=== PATIENT | male | born 1965 | race African-American/Black ===

== ENCOUNTER 2017-06-25 08:35 | Inpatient (IN) | payer OTHER ==
[2017-06-25] VITALS (31 sets, daily range): BP systolic 140–223; BP diastolic 73–129
[~2017-06-25] VITALS: Ht 182.9 cm; Wt 79.8 kg
[2017-06-25] MEDS ORDERED: IV NORMAL SALINE 1000ML BAG 1,000 ML IV ONE (08:45)
--- NOTE | 2017-06-25 08:46 | EKG ---
[facility] [address] [place] [address] Test Date: 2017-06-25 Test Time: 08:41:33 Pat Name: GEORGES VILLEDA Department: Room: Gender: Male System Consultant: : 1965 Requested By: SHYANNE SALAMANCA Order Number: [id number] Reading MD: Carole Martell Measurements Intervals [place] Rate: 136 P: -114 [place]: 88 QRS: 46 QRSD: 92 T: 69 QT: 316 QTc: 479 Interpretive Statements SUPRAVENTRICULAR TACHYCARDIA ST & T ABNORMALITY, CONSIDER ANTEROLATERAL ISCHEMIA ABNORMAL ECG Electronically Signed On 06-29-2017 15:10:17 CDT by Carole Martell
[2017-06-25] MEDS ORDERED: NITROGLYCERIN PREMIX 250 ML IV ONE ×2 (08:54→09:30)
--- NOTE | 2017-06-25 09:00 | PHYS DOC ---
Past Medical History Past Medical History: CAD, Hypertension Adult General Chief Complaint Chief Complaint: CHEST PAIN HPI HPI Patient is a 51 year old male who presents with pressure-like chest pain that started within the last hour without radiation. + SOB, reports heroin use 2-3 days ago. Bypass surgery at in November of this year. HTN and last took his meds yesterday morning. Review of Systems Review of Systems Constitutional: Denies fever or chills [] Eyes: Denies change in visual acuity, redness, or eye pain [] HENT: Denies nasal congestion or sore throat [] Respiratory: Denies cough Cardiovascular: No additional information not addressed in HPI [] GI: Denies abdominal pain, nausea, vomiting, bloody stools or diarrhea [] : Denies dysuria or hematuria [] Musculoskeletal: Denies back pain or joint pain [] Integument: Denies rash or skin lesions [] Neurologic: Denies headache, focal weakness or sensory changes [] Current Medications Current Medications Current Medications Medications (Trade) Dose Ordered Sig/[facility] Start Time Stop Time Status Last Admin Dose Admin Aspirin (Berny Aspirin) 325 mg 1X ONCE 06/25/17 09:45 06/25/17 09:46 DC 06/25/17 09:40 325 MG Furosemide (Lasix) 40 mg 1X ONCE 06/25/17 09:30 06/25/17 09:31 DC 06/25/17 09:35 40 MG Labetalol HCl (Normodyne) 20 mg 1X ONCE 06/25/17 09:30 06/25/17 09:31 DC 06/25/17 09:36 20 MG Nitroglycerin/ Dextrose 250 ml @ 0 mls/hr 1X ONCE 06/25/17 09:30 06/25/17 09:31 DC 06/25/17 09:04 1.5 MLS/HR Sodium Chloride 1,000 ml @ 1,000 mls/hr 1X ONCE 06/25/17 08:45 06/25/17 09:44 DC 06/25/17 08:56 1,000 MLS/HR Allergies Allergies Allergies Coded Allergies Type Severity Reaction Last Updated Verified No Known Drug Allergies 06/25/17 No Physical Exam Physical Exam Constitutional: Well developed, well nourished, appears uncomfortable HENT: Normocephalic, atraumatic, bilateral external ears normal, oropharynx moist, no oral exudates, nose normal. [] Eyes: PERRLA, EOMI, conjunctiva normal, no discharge. [] Neck: Normal range of motion, no tenderness, supple, no stridor. [] Cardiovascular:Heart rate tachy with regular rhythm, no murmur [] Lungs & Thorax: Bilateral breath sounds clear to auscultation [] Abdomen: Bowel sounds normal, soft, no tenderness, no masses, no pulsatile masses. [] Skin: Warm, dry, no erythema, no rash. [] Back: No tenderness, no CVA tenderness. [] Extremities: No tenderness, no cyanosis, no clubbing, ROM intact, no edema, no track vega or erythema Neurologic: Alert and oriented X 3, normal motor function, normal sensory function, no focal deficits noted. [] Current Patient Data Vital Signs Vital Signs Date Time Temp Pulse Resp B/P (MAP) Pulse Ox O2 Delivery O2 Flow Rate FiO2 06/25/17 09:36 116 242/135 06/25/17 08:40 99.7 26 97 Room Air 99.7 Lab Values Laboratory Tests Test 06/25/17 08:44 06/25/17 08:50 06/25/17 09:02 06/25/17 09:34 White Blood Count 7.6 x10^3/uL (4.0-11.0) Red Blood Count 4.08 x10^6/uL (4.30-5.70) L Hemoglobin 10.7 g/dL (13.0-17.5) L Hematocrit 33.5 % (39.0-53.0) L Mean Corpuscular Volume 82 fL (79-100) Mean Corpuscular Hemoglobin 26 pg (25-35) Mean Corpuscular Hemoglobin Concent 32 g/dL (31-37) Red Cell Distribution Width 18.9 % (11.5-14.5) H Platelet Count 233 x10^3/uL (140-400) Neutrophils (%) (Auto) 75 % (31-73) H Lymphocytes (%) (Auto) 11 % (24-48) L Monocytes (%) (Auto) 8 % (0-9) Eosinophils (%) (Auto) 6 % (0-3) H Basophils (%) (Auto) 1 % (0-3) Neutrophils # (Auto) 5.7 x10^3uL (1.8-7.7) Lymphocytes # (Auto) 0.9 x10^3/uL (1.0-4.8) L Monocytes # (Auto) 0.6 x10^3/uL (0.0-1.1) Eosinophils # (Auto) 0.4 x10^3/uL (0.0-0.7) Basophils # (Auto) 0.0 x10^3/uL (0.0-0.2) Prothrombin Time 12.9 SEC (11.7-14.0) Prothrombin Time INR 1.0 (0.8-1.1) Sodium Level 144 mmol/L (136-145) Potassium Level 3.9 mmol/L (3.5-5.1) Chloride Level 108 mmol/L (98-107) H Carbon Dioxide Level 25 mmol/L (21-32) Anion Gap 11 (6-14) 17 mmol/L (6-14) H Blood Urea Nitrogen 24 mg/dL (8-26) Creatinine 2.8 mg/dL (0.7-1.3) H Estimated GFR (Cockcroft-Gault) 23.8 BUN/Creatinine Ratio 9 (6-20) Glucose Level 135 mg/dL (70-99) H 133 mg/dL (70-99) H Lactic Acid Level 1.9 mmol/L (0.4-2.0) Calcium Level 8.7 mg/dL (8.5-10.1) Magnesium Level 1.9 mg/dL (1.8-2.4) Total Bilirubin 0.3 mg/dL (0.2-1.0) Aspartate Amino Transferase (AST) 46 U/L (15-37) H Alanine Aminotransferase (ALT) 39 U/L (16-63) Alkaline Phosphatase 81 U/L (46-116) Troponin I Quantitative 0.024 ng/mL (0.000-0.055) Total Protein 7.3 g/dL (6.4-8.2) Albumin 2.5 g/dL (3.4-5.0) L Albumin/Globulin Ratio 0.5 (1.0-1.7) L Triglycerides Level 121 mg/dL (0-150) Cholesterol Level 214 mg/dL (0-200) H LDL Cholesterol, Calculated 129 mg/dL (0-100) H VLDL Cholesterol, Calculated 24 mg/dL (0-40) Non-HDL Cholesterol Calculated 153 mg/dL (0-129) H HDL Cholesterol 61 mg/dL (40-60) H Cholesterol/HDL Ratio 3.5 POC Hemoglobin 11.2 g/dL (14-18) L POC Hematocrit 33 % (37-52) L POC Sodium 145 mmol/L (135-145) POC Potassium 3.8 mmol/L (3.5-5.0) POC Chloride 110 mmol/L (98-110) POC Total CO2 24 mmol/L (23-32) POC Blood Urea Nitrogen 24 mg/dL (8-26) POC Creatinine 2.8 mg/dL (0.5-1.4) H POC Ionized Calcium (Lima) 1.17 mmol/L (1.13-1.32) POC Troponin I 0.03 ng/ml (<0.08) Urine Opiates Screen Pos (NEG) Urine Methadone Screen Neg (NEG) Urine Barbiturates Neg (NEG) Urine Phencyclidine Screen Neg (NEG) Urine Amphetamine/Methamphetamine Neg (NEG) Urine Benzodiazepines Screen Neg (NEG) Urine Cocaine Screen Neg (NEG) Urine Cannabinoids Screen Neg (NEG) Urine Ethyl Alcohol Neg (NEG) Laboratory Tests 06/25/17 08:44 Laboratory Tests 06/25/17 08:44 06/25/17 08:50 EKG EKG Initial EKG at 841 shows 136 bpm, sinus with normal axis, QTC of 479, there is some ST elevation noted in V2 and V3 but does not meet the 1 mm elevation, there is biphasic T waves in V5 and V6 with some ST depression in same leads as well as V4, signs of left ventricular strain, interpreted by me, no prior available for comparison[] Radiology/Procedures Radiology/Procedures chest x-ray: IMPRESSION: Probable mild pulmonary vascular congestion. Bilateral pleural effusions left greater than right. Volume loss at the left lung base likely reflects atelectasis. Follow-up imaging after appropriate treatment advised. Course & Med Decision Making Course & Med Decision Making Pertinent Labs and Imaging studies reviewed. (See chart for details) pt given asa and nitroglycerin drip initiated. Pt with tachy, chest pain, abnormal EKG and recent IV drug use. Pt could be septic, ACS, dissection, endocarditis. Repeat EKG still does not meet STEMI criteria but I contacted cardiology for evaluation. They requested echo, performed in ED. No wall motion abnormalities. Pt camed down with nitro drip to 193/105. Cr elevated , baseline unknown. Contacted Dr. Cavazos for admission. Total critical care time 35 minutes Dragcedric Disclaimer Dragon Disclaimer This electronic medical record was generated, in whole or in part, using a voice recognition dictation system. Departure Departure Impression: Primary Impression: Malignant hypertension Additional Impression: Unstable angina Disposition: 09 ADMITTED INPATIENT Admitting Physician: Supriya Cavazos Condition: GUARDED Problem Qualifiers SHYANNE SALAMANCA MD Jun 25, 2017 09:00
--- NOTE | 2017-06-25 09:03 | RAD ---
Indication chest pain. A single view of the chest was obtained. No prior imaging of the chest is available. Postoperative changes are noted. Heart size is at the upper limits of normal. There is likely mild pulmonary vascular congestion. There are are bilateral pleural effusions left probably greater than right. There is some associated volume loss at the left lung base which likely reflects atelectasis. Pneumonia is not entirely excluded. A moderately large bleb or bulla is noted in the right upper lobe. IMPRESSION: Probable mild pulmonary vascular congestion. Bilateral pleural effusions left greater than right. Volume loss at the left lung base likely reflects atelectasis. Follow-up imaging after appropriate treatment advised.
[2017-06-25 09:04] LABS: CALCIUM 8.7 mg/dL (8.5-10.1); CREATININE 2.8 mg/dL (0.7-1.3); GFR 23.8; POTASSIUM 3.9 mmol/L (3.5-5.1)
[2017-06-25 09:05] LABS: POTASSIUM ISTAT 3.8 mmol/L (3.5-5.0)
[2017-06-25 09:07] LABS: BASO % 1 % (0-3); EOS % 6 % (0-3); HEMATOCRIT 33.5 % (39.0-53.0); HEMOGLOBIN 10.7 g/dL (13.0-17.5); LYMPH # 0.9 x10^3/uL (1.0-4.8); LYMPH % 11 % (24-48); MEAN CORPUSCULAR HEMOGLOBIN 26 pg (25-35); MEAN CORPUSCULAR HGB CONC 32 g/dL (31-37); MEAN CORPUSCULAR VOLUME 82 fL (79-100); MONO % 8 % (0-9); NEUT % 75 % (31-73); PLATELET COUNT 233 x10^3/uL (140-400); RED BLOOD COUNT 4.08 x10^6/uL (4.30-5.70); RED CELL DISTRIBUTION WIDTH 18.9 % (11.5-14.5); WHITE BLOOD COUNT 7.6 x10^3/uL (4.0-11.0)
[2017-06-25 09:10] LABS: ALBUMIN 2.5 g/dL (3.4-5.0); ALBUMIN/GLOBULIN RATIO 0.5 (1.0-1.7); MAGNESIUM 1.9 mg/dL (1.8-2.4); TOTAL BILIRUBIN 0.3 mg/dL (0.2-1.0); TOTAL PROTEIN 7.3 g/dL (6.4-8.2)
[2017-06-25 09:22] LABS: PROTHROMBIN TIME PATIENT 12.9 SEC (11.7-14.0)
[2017-06-25] MEDS ORDERED: LABETALOL 20 MG/4 ML DISP.SYRIN. IVP ONE (09:30)
[2017-06-25] MEDS ORDERED: FUROSEMIDE 40 MG/4 ML VIAL. IVP ONE (09:30)
--- NOTE | 2017-06-25 09:40 | PDOC2 ---
CARDIAC CONSULT DATE OF CONSULT Date of Consult DATE: 06/25/17 TIME: 09:20 REASON FOR CONSULT Reason for Consult: Chest pain REFERRING PHYSICIAN Referring Physician: Roxana SOURCE Source: Chart review, Patient HISTORY OF PRESENT ILLNESS HISTORY OF PRESENT ILLNESS This is a 51 yo male admitted for complains of SOA. He was going to drop off his friend but he felt SOA. His legs have been more swollen than usual. He also felt wheezy and was feeling mid chest pressure without radiation. No nausea, diaphoresis. 3 weeks ago he was at [facility] noted with hypoglycemia and uncontrolled HTN. He actually passed out accdg to him at home prior to that hospitalization. 11/2016 he was at [place], [place] and lifeflighted to [place], [place] for CABG. He ihas DM2, HTN, CKD, but he has been skipping his medications. Positve for marijuana and heroin use from 2-3 days ago and continues to smoke tobacco. He also is noncompliant with his diet. Presently not having any CP but his BP is elevated. PAST MEDICAL HISTORY Cardiovascular: CAD, HTN, Syncope (?), Hyperlipidemia Pulmonary: No pertinent hx GI: GERD Heme/Onc: Anemia NOS Hepatobiliary: No pertinent hx Psych: No pertinent hx Musculoskeletal: Osteoarthritis Rheumatologic: No pertinent hx Infectious disease: No pertinent hx ENT: No pertinent hx Renal/: Chronic renal insuff Endocrine: Diabetes (2) Dermatology: No pertinent hx PAST SURGICAL HISTORY Past Surgical History: CABG (x3) FAMILY HISTORY Family History: Coronary Artery Disease (father) SOCIAL HISTORY Smoke: <1 pack per day (>5 yrs) ALCOHOL: none Drugs: Marijuana Lives: Alone CURRENT MEDICATIONS CURRENT MEDICATIONS Current Medications Medications (Trade) Dose Ordered Sig/Regino Route PRN Reason Start Time Stop Time Status Last Admin Dose Admin Sodium Chloride 1,000 ml @ 1,000 mls/hr 1X ONCE IV 06/25/17 08:45 06/25/17 09:44 06/25/17 08:56 Nitroglycerin/ Dextrose 250 ml @ 0 mls/hr 1X ONCE IV 06/25/17 09:30 06/25/17 09:31 06/25/17 09:04 ALLERGIES ALLERGIES: Coded Allergies: No Known Drug Allergies (Unverified , 06/25/17) ROS Review of System 14 point ROS evaluated with pertinent positives noted per HPI PHYSICAL EXAM General: Alert, Oriented X3, Cooperative, mild distress HEENT: Atraumatic, Mucous membr. moist/pink Lungs: Other (basilar crackles) Heart: Regular rate (SR), Normal S1, Normal S2, Other (S4, distant heart sounds ) Abdomen: Soft, No tenderness Extremities: No cyanosis, Other (3-4+ bilateral LE pitting edema) Neuro: Normal speech, Sensation intact Psych/Mental Status: Mental status NL, Mood NL MUSCULOSKELETAL: Osteoarthritic changes both hands VITALS VITALS Vital Signs Date Time Temp Pulse Resp B/P (MAP) Pulse Ox O2 Delivery O2 Flow Rate FiO2 06/25/17 08:40 99.7 123 26 233/141 (171) 97 Room Air 99.7 LABS Lab: Laboratory Tests Test 06/25/17 08:44 06/25/17 08:50 06/25/17 09:02 White Blood Count 7.6 x10^3/uL (4.0-11.0) Red Blood Count 4.08 x10^6/uL (4.30-5.70) Hemoglobin 10.7 g/dL (13.0-17.5) Hematocrit 33.5 % (39.0-53.0) Mean Corpuscular Volume 82 fL (79-100) Mean Corpuscular Hemoglobin 26 pg (25-35) Mean Corpuscular Hemoglobin Concent 32 g/dL (31-37) Red Cell Distribution Width 18.9 % (11.5-14.5) Platelet Count 233 x10^3/uL (140-400) Neutrophils (%) (Auto) 75 % (31-73) Lymphocytes (%) (Auto) 11 % (24-48) Monocytes (%) (Auto) 8 % (0-9) Eosinophils (%) (Auto) 6 % (0-3) Basophils (%) (Auto) 1 % (0-3) Neutrophils # (Auto) 5.7 x10^3uL (1.8-7.7) Lymphocytes # (Auto) 0.9 x10^3/uL (1.0-4.8) Monocytes # (Auto) 0.6 x10^3/uL (0.0-1.1) Eosinophils # (Auto) 0.4 x10^3/uL (0.0-0.7) Basophils # (Auto) 0.0 x10^3/uL (0.0-0.2) Sodium Level 144 mmol/L (136-145) Potassium Level 3.9 mmol/L (3.5-5.1) Chloride Level 108 mmol/L (98-107) Carbon Dioxide Level 25 mmol/L (21-32) Anion Gap 11 (6-14) 17 mmol/L (6-14) Blood Urea Nitrogen 24 mg/dL (8-26) Creatinine 2.8 mg/dL (0.7-1.3) Estimated GFR (Cockcroft-Gault) 23.8 BUN/Creatinine Ratio 9 (6-20) Glucose Level 135 mg/dL (70-99) 133 mg/dL (70-99) Lactic Acid Level 1.9 mmol/L (0.4-2.0) Calcium Level 8.7 mg/dL (8.5-10.1) Magnesium Level 1.9 mg/dL (1.8-2.4) Total Bilirubin 0.3 mg/dL (0.2-1.0) Aspartate Amino Transf (AST/SGOT) 46 U/L (15-37) Alanine Aminotransferase (ALT/SGPT) 39 U/L (16-63) Alkaline Phosphatase 81 U/L (46-116) Troponin I Quantitative 0.024 ng/mL (0.000-0.055) Total Protein 7.3 g/dL (6.4-8.2) Albumin 2.5 g/dL (3.4-5.0) Albumin/Globulin Ratio 0.5 (1.0-1.7) Bedside Hemoglobin 11.2 g/dL (14-18) Bedside Hematocrit 33 % (37-52) Bedside Sodium 145 mmol/L (135-145) Bedside Potassium 3.8 mmol/L (3.5-5.0) Bedside Chloride 110 mmol/L (98-110) Bedside Total CO2 24 mmol/L (23-32) Bedside Blood Urea Nitrogen 24 mg/dL (8-26) Bedside Creatinine 2.8 mg/dL (0.5-1.4) Bedside Ionized Calcium (Lima) 1.17 mmol/L (1.13-1.32) Bedside Troponin I 0.03 ng/ml (<0.08) ASSESSMENT/PLAN ASSESSMENT/PLAN 1. Malignant HTN 2. Noncompliance: skipping meds, has not followed up with cardiology. 3. Acute on chronic CHF with possible diastolic dysfunction: due to above 4. ANTONIA on CKD: suspect 3-4 5. CAD: recent CABG x3 on 11/2016 6. DM2/HLP 7. Substance abuse: marijuana and heroin 8. Recent syncopal spell: 3 wks ago at [facility] noted with hypoglycemia and uncontrolled HTN per pt. Recommendations 1. NTG started on ED. Will transition to his home meds when obtained. Labetolol x1 and lasix IV 2. Stop IVF, consult nephrology 3. Discussed adherence to regimen and abstinence. 4. TTE and obtain records. Problems: KAROLINE REILLY SCALLOP RAKER Jun 25, 2017 09:40
[2017-06-25 09:44] LABS: BILIRUBIN,URINE NEGATIVE (NEG); GLUCOSE,URINE NEGATIVE (NEG); NITRITE,URINE NEGATIVE (NEG); PROTEIN,URINE >=300 mg/dL (NEG-TRACE); UROBILINOGEN,URINE 0.2 mg/dL (0.2 mg/dL)
[2017-06-25] MEDS ORDERED: ASPIRIN 325 MG TABLET PO ONE (09:45)
[2017-06-25 09:48] LABS: BARBITURATES NEG (NEG); BENZODIAZEPINES NEG (NEG); CANNABINOIDS NEG (NEG); COCAINE NEG (NEG); METHADONE NEG (NEG); OPIATES POS (NEG); PHENCYCLIDINE NEG (NEG)
[2017-06-25 09:54] LABS: CHOLESTEROL/HDL RATIO 3.5
--- NOTE | 2017-06-25 10:18 | EKG ---
[facility] [address] [place] [address] Test Date: 2017-06-25 Test Time: 08:55:15 Pat Name: GEORGES VILLEDA Department: Room: Gender: M Equipment Services Associate: : 1965 Requested By: SHYANNE SALAMANCA Order Number: [id number] Reading MD: Carole Martell Measurements Intervals [place] Rate: 114 P: -4 [place]: 132 QRS: 40 QRSD: 94 T: 57 QT: 328 QTc: 456 Interpretive Statements SINUS TACHYCARDIA ST & T ABNORMALITY, CONSIDER ANTEROLATERAL ISCHEMIA Electronically Signed On 06-29-2017 15:11:11 CDT by Carole Martell
[2017-06-25 10:24] LABS: BACTERIA,URINE 0 /HPF (0-FEW); SQUAMOUS EPITHELIAL CELL,UR OCC /LPF; WBC,URINE 0 /HPF (0-4)
[2017-06-25] MEDS: METOPROLOL TART IMMED RELEASE 25 MG TABLET. PO SCH ×2 (12:36→20:51)
[2017-06-25] MEDS: FUROSEMIDE 40 MG/4 ML VIAL. IVP SCH ×2 (12:36→16:06)
[2017-06-25] MEDS ORDERED: INFLUENZA VAX SCREEN BY RX. MC ONE (13:30)
[2017-06-25] MEDS ORDERED: GABA800T2 PO (14:06)
[2017-06-25] MEDS ORDERED: CARV25TA2 PO (14:06)
[2017-06-25] MEDS ORDERED: METF100010 PO (14:06)
[2017-06-25] MEDS ORDERED: HYDR-2868 PO (14:06)
[2017-06-25] MEDS ORDERED: AMLO10TA2 PO (14:06)
[2017-06-25] MEDS ORDERED: CLON0.1T PO (14:06)
[2017-06-25] MEDS ORDERED: GLIM4TAB2 PO (14:06)
[2017-06-25] MEDS ORDERED: ATORVASTATIN CA80 MG PO (14:06)
--- NOTE | 2017-06-25 15:12 | CARD ---
APPROVED REPORT EXAM: Two-dimensional and M-mode echocardiogram with Doppler and color Doppler. Other Information Quality : Average Rhythm : NSR INDICATION Hypertension/HCVD IV drug use 2D DIMENSIONS RVDd2.5 (2.9-3.5cm)Left Atrium(2D)4.4 (1.6-4.0cm) IVSd1.2 (0.7-1.1cm)Aortic Root(2D)3.3 (2.0-3.7cm) LVDd4.9 (3.9-5.9cm)LVOT Diameter2.1 (1.8-2.4cm) PWd1.2 (0.7-1.1cm)LVDs3.8 (2.5-4.0cm) FS (%) 23.5 %SV49.2 ml Aortic Valve AoV Peak Himanshu.118.4cm/sAoV VTI19.3cm AO Peak GR.5.6mmHgLVOT VTI 15.01cm AO Mean GR.3mmHg Mitral Valve MV E Mfklrpto31.9cm/sMV E Peak Gr.4mmHg MV DECEL [id number] A Otheiyjz40.9cm/s MV DGQ98waM/A Ratio1.0 MV A [id number] (PHT)3.93cm2 TDI Lateral E' P. V11.74cm/sMedial E' P. V6.41cm/s E/Lateral E'8.3E/Medial E'15.1 Tricuspid Valve TR P. Fbxglppp815ow/sRAP [id number] TR Peak Gr.68geRnKTNX90zcPp LEFT VENTRICLE The left ventricle is normal size. There is borderline concentric left ventricular hypertrophy. Left ventricle systolic function is normal. The Ejection Fraction is 50-55%. There is normal LV segmental wall motion. The left ventricular diastolic function and filling is normal for age. RIGHT VENTRICLE The right ventricle is normal size. The right ventricular systolic function is normal. ATRIA The left atrium is borderline dilated. The right atrium size is normal. The interatrial septum is int act with no evidence for an atrial septal defect or patent foramen ovale as noted on 2-D or Doppler i maging. AORTIC VALVE The aortic valve is not well visualized. Doppler and Color Flow revealed no significant aortic regurg itation. There is no significant aortic valvular stenosis. MITRAL VALVE The mitral valve is normal in structure. There is no mitral valve stenosis. Doppler and Color Flow re vealed mild mitral regurgitation. TRICUSPID VALVE The tricuspid valve is normal in structure and function. Doppler and Color Flow revealed trace to mil d tricuspid regurgitation. The PA pressure was estimated at 35 mmHg. There is no tricuspid valve sten osis. PULMONIC VALVE The pulmonic valve is not well visualized. Doppler and Color Flow revealed no pulmonic valvular regur gitation. There is no pulmonic valvular stenosis. GREAT VESSELS The aortic root is normal in size. Pulmonary veins not recorded. The IVC is dilated and collapses >50 % with inspiration. PERICARDIAL EFFUSION There is large bilateral pleural effusions. There is no evidence of significant pericardial effusion. Critical Notification Other Discipline : Gauri Odell APRN at bedside Critical Value: No <Conclusion> Left ventricle systolic function is normal. The Ejection Fraction is 50-55%. There is normal LV segmental wall motion. The left atrium is borderline dilated. Mild mitral regurgitation. Trace to mild tricuspid regurgitation. The PA pressure was estimated at 35 mmHg. There is no evidence of significant pericardial effusion.
--- NOTE | 2017-06-25 15:32 | PDOC1 ---
History and Physical Date of Admission Date of Admission DATE: 06/25/17 TIME: 15:26 Identification/Chief Complaint Chief Complaint chest pain Problems: Source Source: Chart review, Patient History of Present Illness History of Present Illness MR. Barcenas, is a 51 year old male, admit to ICU with chest pain. He came to the ER with acute pressure-like chest pain for a few hours. He had new dyspena and distress, and had some anxiety. Prior heart attack a few months ago, he reports recent CABG at in November of this year. marked HTN, mult agents, reported not taking meds for one day feels better after nitro gtt, breathing easier, Past Medical History Cardiovascular: CAD, HTN, Syncope (?), Hyperlipidemia Pulmonary: No pertinent hx GI: GERD Heme/Onc: Anemia NOS Hepatobiliary: No pertinent hx Psych: No pertinent hx Musculoskeletal: Osteoarthritis Rheumatologic: No pertinent hx Infectious disease: No pertinent hx ENT: No pertinent hx Renal/: Chronic renal insuff Endocrine: Diabetes (2) Dermatology: No pertinent hx Past Surgical History Past Surgical History: CABG (x3) Family History Family History: Coronary Artery Disease (father) Social History Smoke: <1 pack per day (>5 yrs) ALCOHOL: none Drugs: Marijuana, Heroin, Other Current Problem List Problem List Problems Medical Problems: (1) Malignant hypertension Status: Acute (2) Unstable angina Status: Acute Problems: Current Medications Current Medications Current Medications Sodium Chloride 1,000 ml @ 1,000 mls/hr 1X ONCE IV Last administered on 06/25 08:56; Start 06/25/17 at 08:45; Stop 06/25/17 at 09:44; Status DC Nitroglycerin/ Dextrose 250 ml @ As Directed STK-MED ONCE IV ; Start 06/25/17 at 08:54; Stop 06/25/17 at 08:55; Status DC Nitroglycerin/ Dextrose 250 ml @ 0 mls/hr 1X ONCE IV Last administered on 09:04; Start 06/25/17 at 09:30; Stop 06/25/17 at 09:31; Status DC Furosemide (Lasix) 40 mg 1X ONCE IVP Last administered on 06/25/17 09:35; Start 06/25/17 at 09:30; Stop 06/25/17 at 09:31; Status DC Labetalol HCl (Normodyne) 20 mg 1X ONCE IVP Last administered on 06/25/17 09 :36; Start 06/25/17 at 09:30; Stop 06/25/17 at 09:31; Status DC Aspirin (Berny Aspirin) 325 mg 1X ONCE PO Last administered on 06/25/17 09: 40; Start 06/25/17 at 09:45; Stop 06/25/17 at 09:46; Status DC Metoprolol Tartrate (Lopressor) 25 mg BID PO Last administered on 06/25/17 12 :36; Start 06/25/17 at 11:00 Furosemide (Lasix) 40 mg [id number] IVP Last administered on 06/25/17 12:36; Start 06/25/17 at 11:00 Labetalol HCl (Normodyne) 20 mg PRN Q2HRS PRN IVP ELEVATED BP, SEE COMMENTS; Start 06/25/17 at 10:45 Aspirin (Ecotrin) 81 mg [id number] PO ; Start 06/26/17 at 08:00 Atorvastatin Calcium (Lipitor) 40 mg QHS PO ; Start 06/25/17 at 21:00 Amlodipine Besylate (Norvasc) 10 mg DAILY PO ; Start 06/25/17 at 12:30 Nicardipine HCl 50 mg/Sodium Chloride 270 ml @ 0 mls/hr CONT PRN IV SEE I/O RECORD Last administered on 06/25/17 12:44; Start 06/25/17 at 12:30 Info (Do NOT chart on this placeholder) 1 each 1X ONCE MC ; Start 06/25/17 at 13:30; Stop 06/25/17 at 13:31; Status UNV Influenza Virus Vaccine Quadrival (Fluarix Quad [id number] Syringe) 0.5 ml ONCE ONCE VAX IM ; Start 06/26/17 at 09:00; Stop 06/26/17 at 09:01 Active Scripts Active Reported Metformin Hcl Er (Metformin Hcl) 1,000 Mg Tab.er.24 1,000 Mg PO [id number] Hydralazine Hcl 25 Mg Tablet 1 Tab PO TID Clonidine Hcl 0.1 Mg Tablet 1 Tab PO BID Carvedilol 25 Mg Tablet 2 Tab PO BID Atorvastatin Calcium 80 Mg Tablet 1 Tab PO DAILY Amlodipine Besylate 10 Mg Tablet 10 Mg PO DAILY Gabapentin 800 Mg Tablet 800 Mg PO TID Glimepiride 4 Mg Tablet 1 Tab PO BID Allergies Allergies: Coded Allergies: No Known Drug Allergies (Unverified , 06/25/17) ROS General: YES: Fatigue, No: Chills, Night Sweats, Malaise, Appetite, Other PSYCHOLOGICAL ROS: YES: Anxiety, No: Behavioral Disorder, Concentration difficultie, Decreased libido, Depression, Disorientation, Hallucinations, Hostility, Irritablity, Memory difficulties, Mood Swings, Obsessive thoughts, Physical abuse, Sexual abuse, Sleep disturbances, Suicidal ideation, Other Eyes: No Blurry vision, No Decreased vision, No Double vision, No Dry eyes, No Excessive tearing, No Eye Pain, No Itchy Eyes, No Loss of vision, No Photophobia , No Scotomata, No Uses contacts, No Uses glasses, No Other HEENT: YES: Heacaches, No: Visual Changes, Hearing change, Nasal congestion, Nasal discharge, Oral lesions, Sinus pain, Sore Throat, Epistaxis, Sneezing, Snoring, Tinnitus, Vertigo, Vocal changes, Other Respiratory: YES: Shortness of breath, SOB with excertion, No: Cough, Hemoptysis, Orthopnea, Pleuritic Pain, Sputum Changes, Stridor, Tachypnea, Wheezing, Other Cardiovascular: yes Chest Pain, No Palpitations, No Orthopnea, No Paroxysmal Noc. Dyspnea, No Edema, No Lt Headedness, No Other Gastrointestinal: No Nausea, No Vomiting, No Abdominal Pain, No Diarrhea, No Constipation, No Melena, No Hematochezia, No Other Genitourinary: No Dysuria, No Frequency, No Incontinence, No Hematuria, No Retention, No Discharge, No Urgency, No Pain, No Flank Pain, No Other, No , No , No , No , No , No , No Musculoskeletal: No Gait Disturbance, No Joint Pain, No Joint Stiffness, No Joint Swelling, No Muscle Pain, No Muscular Weakness, No Pain In:, No Swelling In:, No Other Neurological: No Behavorial Changes, No Bowel/Bladder ControlChng, No Confusion , No Dizziness, No Gait Disturbance, No Headaches, No Impaired Coord/balance, No Memory Loss, No Numbness/Tingling, No Seizures, No Speech Problems, No Tremors, No Visual Changes, No Weakness, No Other Skin: No Dry Skin, No Eczema, No Hair Changes, No Lumps, No Mole Changes, No Mottling, No Nail Changes, No Pruritus, No Rash, No Skin Lesion Changes, No Other, No Acne Physical Exam General: Alert, Oriented X3, Cooperative, mild distress HEENT: Atraumatic Lungs: Clear to auscultation, Normal air movement Heart: no gallops, no murmurs Abdomen: Normal bowel sounds, Soft Rectal Exam: not examined Extremities: No clubbing, No edema, Normal pulses Skin: No rashes, No significant lesion Neuro: Normal tone, Sensation intact Psych/Mental Status: Mental status NL, Mood NL Vitals Vitals Vital Signs Date Time Temp Pulse Resp B/P (MAP) Pulse Ox O2 Delivery O2 Flow Rate FiO2 06/25/17 12:36 109 223/124 06/25/17 11:45 20 95 Room Air 06/25/17 08:40 99.7 99.7 Labs Labs Laboratory Tests Test 06/25/17 08:44 06/25/17 08:50 06/25/17 09:02 06/25/17 09:34 White Blood Count 7.6 x10^3/uL (4.0-11.0) Red Blood Count 4.08 x10^6/uL (4.30-5.70) Hemoglobin 10.7 g/dL (13.0-17.5) Hematocrit 33.5 % (39.0-53.0) Mean Corpuscular Volume 82 fL (79-100) Mean Corpuscular Hemoglobin 26 pg (25-35) Mean Corpuscular Hemoglobin Concent 32 g/dL (31-37) Red Cell Distribution Width 18.9 % (11.5-14.5) Platelet Count 233 x10^3/uL (140-400) Neutrophils (%) (Auto) 75 % (31-73) Lymphocytes (%) (Auto) 11 % (24-48) Monocytes (%) (Auto) 8 % (0-9) Eosinophils (%) (Auto) 6 % (0-3) Basophils (%) (Auto) 1 % (0-3) Neutrophils # (Auto) 5.7 x10^3uL (1.8-7.7) Lymphocytes # (Auto) 0.9 x10^3/uL (1.0-4.8) Monocytes # (Auto) 0.6 x10^3/uL (0.0-1.1) Eosinophils # (Auto) 0.4 x10^3/uL (0.0-0.7) Basophils # (Auto) 0.0 x10^3/uL (0.0-0.2) Prothrombin Time 12.9 SEC (11.7-14.0) Prothromb Time International Ratio 1.0 (0.8-1.1) Sodium Level 144 mmol/L (136-145) Potassium Level 3.9 mmol/L (3.5-5.1) Chloride Level 108 mmol/L (98-107) Carbon Dioxide Level 25 mmol/L (21-32) Anion Gap 11 (6-14) 17 mmol/L (6-14) Blood Urea Nitrogen 24 mg/dL (8-26) Creatinine 2.8 mg/dL (0.7-1.3) Estimated GFR (Cockcroft-Gault) 23.8 BUN/Creatinine Ratio 9 (6-20) Glucose Level 135 mg/dL (70-99) 133 mg/dL (70-99) Lactic Acid Level 1.9 mmol/L (0.4-2.0) Calcium Level 8.7 mg/dL (8.5-10.1) Magnesium Level 1.9 mg/dL (1.8-2.4) Total Bilirubin 0.3 mg/dL (0.2-1.0) Aspartate Amino Transf (AST/SGOT) 46 U/L (15-37) Alanine Aminotransferase (ALT/SGPT) 39 U/L (16-63) Alkaline Phosphatase 81 U/L (46-116) Troponin I Quantitative 0.024 ng/mL (0.000-0.055) Total Protein 7.3 g/dL (6.4-8.2) Albumin 2.5 g/dL (3.4-5.0) Albumin/Globulin Ratio 0.5 (1.0-1.7) Triglycerides Level 121 mg/dL (0-150) Cholesterol Level 214 mg/dL (0-200) LDL Cholesterol, Calculated 129 mg/dL (0-100) VLDL Cholesterol, Calculated 24 mg/dL (0-40) Non-HDL Cholesterol Calculated 153 mg/dL (0-129) HDL Cholesterol 61 mg/dL (40-60) Cholesterol/HDL Ratio 3.5 Bedside Hemoglobin 11.2 g/dL (14-18) Bedside Hematocrit 33 % (37-52) Bedside Sodium 145 mmol/L (135-145) Bedside Potassium 3.8 mmol/L (3.5-5.0) Bedside Chloride 110 mmol/L (98-110) Bedside Total CO2 24 mmol/L (23-32) Bedside Blood Urea Nitrogen 24 mg/dL (8-26) Bedside Creatinine 2.8 mg/dL (0.5-1.4) Bedside Ionized Calcium (Lima) 1.17 mmol/L (1.13-1.32) Bedside Troponin I 0.03 ng/ml (<0.08) Urine Collection Type Unknown Urine Color Yellow Urine Clarity Clear Urine pH 7.0 Urine Specific [place] <=1.005 Urine Protein >=300 mg/dL (NEG-TRACE) Urine Glucose (UA) Negative mg/dL (NEG) Urine Ketones (Stick) Negative mg/dL (NEG) Urine Blood Small (NEG) Urine Nitrite Negative (NEG) Urine Bilirubin Negative (NEG) Urine Urobilinogen Dipstick 0.2 mg/dL (0.2 mg/dL) Urine Leukocyte Esterase Negative (NEG) Urine RBC 11-20 /HPF (0-2) Urine WBC 0 /HPF (0-4) Urine Squamous Epithelial Cells Occ /LPF Urine Bacteria 0 /HPF (0-FEW) Urine Opiates Screen Pos (NEG) Urine Methadone Screen Neg (NEG) Urine Barbiturates Neg (NEG) Urine Phencyclidine Screen Neg (NEG) Urine Amphetamine/Methamphetamine Neg (NEG) Urine Benzodiazepines Screen Neg (NEG) Urine Cocaine Screen Neg (NEG) Urine Cannabinoids Screen Neg (NEG) Urine Ethyl Alcohol Neg (NEG) Laboratory Tests Test 06/25/17 08:44 06/25/17 08:50 06/25/17 09:02 06/25/17 09:34 White Blood Count 7.6 x10^3/uL (4.0-11.0) Red Blood Count 4.08 x10^6/uL (4.30-5.70) Hemoglobin 10.7 g/dL (13.0-17.5) Hematocrit 33.5 % (39.0-53.0) Mean Corpuscular Volume 82 fL (79-100) Mean Corpuscular Hemoglobin 26 pg (25-35) Mean Corpuscular Hemoglobin Concent 32 g/dL (31-37) Red Cell Distribution Width 18.9 % (11.5-14.5) Platelet Count 233 x10^3/uL (140-400) Neutrophils (%) (Auto) 75 % (31-73) Lymphocytes (%) (Auto) 11 % (24-48) Monocytes (%) (Auto) 8 % (0-9) Eosinophils (%) (Auto) 6 % (0-3) Basophils (%) (Auto) 1 % (0-3) Neutrophils # (Auto) 5.7 x10^3uL (1.8-7.7) Lymphocytes # (Auto) 0.9 x10^3/uL (1.0-4.8) Monocytes # (Auto) 0.6 x10^3/uL (0.0-1.1) Eosinophils # (Auto) 0.4 x10^3/uL (0.0-0.7) Basophils # (Auto) 0.0 x10^3/uL (0.0-0.2) Prothrombin Time 12.9 SEC (11.7-14.0) Prothromb Time International Ratio 1.0 (0.8-1.1) Sodium Level 144 mmol/L (136-145) Potassium Level 3.9 mmol/L (3.5-5.1) Chloride Level 108 mmol/L (98-107) Carbon Dioxide Level 25 mmol/L (21-32) Anion Gap 11 (6-14) 17 mmol/L (6-14) Blood Urea Nitrogen 24 mg/dL (8-26) Creatinine 2.8 mg/dL (0.7-1.3) Estimated GFR (Cockcroft-Gault) 23.8 BUN/Creatinine Ratio 9 (6-20) Glucose Level 135 mg/dL (70-99) 133 mg/dL (70-99) Lactic Acid Level 1.9 mmol/L (0.4-2.0) Calcium Level 8.7 mg/dL (8.5-10.1) Magnesium Level 1.9 mg/dL (1.8-2.4) Total Bilirubin 0.3 mg/dL (0.2-1.0) Aspartate Amino Transf (AST/SGOT) 46 U/L (15-37) Alanine Aminotransferase (ALT/SGPT) 39 U/L (16-63) Alkaline Phosphatase 81 U/L (46-116) Troponin I Quantitative 0.024 ng/mL (0.000-0.055) Total Protein 7.3 g/dL (6.4-8.2) Albumin 2.5 g/dL (3.4-5.0) Albumin/Globulin Ratio 0.5 (1.0-1.7) Triglycerides Level 121 mg/dL (0-150) Cholesterol Level 214 mg/dL (0-200) LDL Cholesterol, Calculated 129 mg/dL (0-100) VLDL Cholesterol, Calculated 24 mg/dL (0-40) Non-HDL Cholesterol Calculated 153 mg/dL (0-129) HDL Cholesterol 61 mg/dL (40-60) Cholesterol/HDL Ratio 3.5 Bedside Hemoglobin 11.2 g/dL (14-18) Bedside Hematocrit 33 % (37-52) Bedside Sodium 145 mmol/L (135-145) Bedside Potassium 3.8 mmol/L (3.5-5.0) Bedside Chloride 110 mmol/L (98-110) Bedside Total CO2 24 mmol/L (23-32) Bedside Blood Urea Nitrogen 24 mg/dL (8-26) Bedside Creatinine 2.8 mg/dL (0.5-1.4) Bedside Ionized Calcium (Lima) 1.17 mmol/L (1.13-1.32) Bedside Troponin I 0.03 ng/ml (<0.08) Urine Collection Type Unknown Urine Color Yellow Urine Clarity Clear Urine pH 7.0 Urine Specific [place] <=1.005 Urine Protein >=300 mg/dL (NEG-TRACE) Urine Glucose (UA) Negative mg/dL (NEG) Urine Ketones (Stick) Negative mg/dL (NEG) Urine Blood Small (NEG) Urine Nitrite Negative (NEG) Urine Bilirubin Negative (NEG) Urine Urobilinogen Dipstick 0.2 mg/dL (0.2 mg/dL) Urine Leukocyte Esterase Negative (NEG) Urine RBC 11-20 /HPF (0-2) Urine WBC 0 /HPF (0-4) Urine Squamous Epithelial Cells Occ /LPF Urine Bacteria 0 /HPF (0-FEW) Urine Opiates Screen Pos (NEG) Urine Methadone Screen Neg (NEG) Urine Barbiturates Neg (NEG) Urine Phencyclidine Screen Neg (NEG) Urine Amphetamine/Methamphetamine Neg (NEG) Urine Benzodiazepines Screen Neg (NEG) Urine Cocaine Screen Neg (NEG) Urine Cannabinoids Screen Neg (NEG) Urine Ethyl Alcohol Neg (NEG) VTE Prophylaxis Ordered VTE Prophylaxis Devices: No VTE Pharmacological Prophylaxi: Yes Assessment/Plan Assessment/Plan unstable angina in known CAD accelerated htn, admit to ICU for cardene gtt, s/p nitro gtt mult home meds htn agents, CKD 4, htn mod/severe malnutrition, POA, low serum albumin NOS recent narcotic use, tobaccoism ANILA ENRIQUEZ MD Jun 25, 2017 15:32
[2017-06-25] MEDS ORDERED: DEXTROSE 50% 25 GM / 50ML DISP.SYRIN. IV PRN (15:45)
[2017-06-25] MEDS: amLODIPine BESYLATE 10 MG TABLET PO SCH (16:06)
[2017-06-25] MEDS: INSULIN ASPART 300 UNITS/3 ML INSULN.PEN SQ SCH ×2 (16:30→21:00)
[2017-06-25] MEDS ORDERED: amLODIPine BESYLATE 10 MG TABLET PO SCH (17:00)
[2017-06-25] MEDS ORDERED: CARVEDILOL 12.5 MG TABLET. PO SCH (17:00)
[2017-06-25] MEDS: hydrALAZINE 25 MG TABLET PO SCH ×2 (17:32→20:52)
[2017-06-25] MEDS: GABAPENTIN 400 MG CAPSULE. PO SCH ×2 (17:33→20:51)
[2017-06-25] MEDS: ATORVASTATIN CALCIUM 40 MG TABLET. PO SCH (20:52)
[2017-06-25] MEDS ORDERED: ATORVASTATIN CALCIUM 40 MG TABLET. PO SCH (21:00)
[2017-06-25] MEDS ORDERED: cloNIDine HCL 0.1 MG TABLET PO SCH (21:00)
[2017-06-26] VITALS (47 sets, daily range): BP systolic 107–184; BP diastolic 73–101
[2017-06-26] MEDS: LABETALOL 20 MG/4 ML DISP.SYRIN. IVP PRN ×3 (02:19→23:16)
[2017-06-26] MEDS: INSULIN ASPART 300 UNITS/3 ML INSULN.PEN SQ SCH ×4 (07:30→21:00)
[2017-06-26] MEDS ORDERED: FLU VACC QS2017-18 (36MOS+)/PF 0.5 ML SYRINGE. VAX IM ONE (09:00)
[2017-06-26] MEDS ORDERED: ISOSORBIDE MONONITRATE ER 30 MG TAB.ER.24H PO SCH (09:00)
[2017-06-26] MEDS: ASPIRIN ENTERIC COATED 81 MG TABLET.DR. PO SCH (09:19)
[2017-06-26] MEDS: hydrALAZINE 25 MG TABLET PO SCH ×4 (09:20→19:57)
[2017-06-26] MEDS: FUROSEMIDE 40 MG/4 ML VIAL. IVP SCH ×2 (09:20→13:40)
[2017-06-26] MEDS: amLODIPine BESYLATE 10 MG TABLET PO SCH (09:21)
[2017-06-26] MEDS: GABAPENTIN 400 MG CAPSULE. PO SCH ×3 (09:21→19:56)
--- NOTE | 2017-06-26 11:34 | PDOC ---
CARDIO Progress Notes Date and Time Date of Service 06/26/2017 Time of Evaluation 1130 Subjective Subjective: No Chest Pain, No shortness of breath, No Palpitations Vitals Vitals Vital Signs Date Time Temp Pulse Resp B/P (MAP) Pulse Ox O2 Delivery O2 Flow Rate FiO2 06/26/17 10:15 106 28 151/86 (107) 96 Room Air 06/26/17 08:00 98.8 98.8 Weight Weight [ ] Input and Output Intake and Output Intake and Output 06/27/17 06:59 Intake Total 360 ml Output Total 1000 ml Balance -640 ml Intake Oral 360 ml Output Urine Total 1000 ml Laboratory Labs Laboratory Tests Test 06/25/17 12:00 06/25/17 16:08 06/25/17 17:35 06/25/17 20:59 Nasal Screen MRSA (PCR) Negative (Negative) Troponin I Quantitative 0.122 ng/mL (0.000-0.055) Glucose (Fingerstick) 109 mg/dL (70-99) 166 mg/dL (70-99) Test 06/25/17 22:10 06/26/17 08:56 Troponin I Quantitative 0.120 ng/mL (0.000-0.055) Glucose (Fingerstick) 132 mg/dL (70-99) Microbiology Micro Microbiology 06/25/17 Blood Culture - Preliminary, Resulted NO GROWTH AFTER 1 DAY Physical Exam HEENT: Neck Supple W Full Motion Chest: Symmetric LUNGS: Other (basilar crackles) Heart: S1S2, RRR (SR), no gallops, no murmurs Abdomen: Soft N/T Extremities: No Calf Tenderness, Other (2-3+ bilateral LE pitting edema) Neurology: alert, oriented, follow commands Assessment Assessment 1. Malignant HTN: improving 2. Noncompliance: skipping meds, has not followed up with cardiology. 3. Acute on chronic CHF with possible diastolic dysfunction: better. 4. ANTONIA on CKD: suspect 3-4 5. Elevated troponin: peaked at 0.12, demand mediated with above culprits. TTE with normal EF and wall motion. 6. CAD: recent CABG x3 on 11/2016 7. DM2/HLP 7. Substance abuse: marijuana and heroin 8. Hx of recent syncope Recommendations 1. Titrate down cardene. Continue with coreg, lisinopril, lasix, amlodipine. Start on hydralazine, and imdur. labetolol PRN. 2. Nephrology consulted 3. Discussed adherence to regimen and abstinence. 4. TTE and still awaiting records. BMP, Mg, CXR KAROLINE REILLY COLOR TECHNICIAN Jun 26, 2017 11:34
--- NOTE | 2017-06-26 11:36 | PDOC2 ---
CONSULT Date of Consult Date of Consult DATE: 06/26/17 TIME: 11:29 Reason for Consult Reason for Consult: RENAL FAILURE Referring Physician Referring Physician: MINA Identification/Chief Complaint Chief Complaint CHEST PAIN Problems: Source Source: Chart review, Patient History of Present Illness Reason for Visit: THIS IS A 51 YR OLD HERE WITH CHEST PAIN. ON INITIAL EVAL HE IS NOTED TO HAVE A BP OF 223/124. HE IS ALSO NOTED TO HAVE SOME SOB AND CXRAY SHOWED PULMONARY VASCULAR CONGESTION. CR IS 2.8. HE ALSO HAS A HX OF DM II. HE WAS TOLD EARLIER THIS YEAR THAT HE HAD SOME KIDNEY DAMAGE AND WAS ASKED TO SEE A KIDNEY SPECIALIST BUT HAS NOT DONE SO. HE WAS ALSO TOLD THAT HE HAS PROTEIN IN HIS URINE. HE HAS NOT BEEN TAKING ANY OF HIS MEDICATIONS. NO NSAID ABUSE HX. NO HX OF ANY PROBLEMS WITH EMPTYING HIS BLADDER Past Medical History Cardiovascular: CAD, HTN, Syncope (?), Hyperlipidemia Pulmonary: No pertinent hx GI: GERD Heme/Onc: Anemia NOS Hepatobiliary: No pertinent hx Psych: No pertinent hx Musculoskeletal: Osteoarthritis Rheumatologic: No pertinent hx Infectious disease: No pertinent hx ENT: No pertinent hx Renal/: Chronic renal insuff Endocrine: Diabetes (2) Dermatology: No pertinent hx Past Surgical History Past Surgical History: CABG (x3) Family History Family History: Coronary Artery Disease (father) Social History <1 pack per day (>5 yrs) ALCOHOL: none Drugs: Marijuana, Heroin, Other Lives: Alone Current Problem List Problem List Problems Medical Problems: (1) Malignant hypertension Status: Acute (2) Unstable angina Status: Acute Current Medications Current Medications Current Medications Sodium Chloride 1,000 ml @ 1,000 mls/hr 1X ONCE IV Last administered on 06/25 08:56; Start 06/25/17 at 08:45; Stop 06/25/17 at 09:44; Status DC Nitroglycerin/ Dextrose 250 ml @ As Directed STK-MED ONCE IV ; Start 06/25/17 at 08:54; Stop 06/25/17 at 08:55; Status DC Nitroglycerin/ Dextrose 250 ml @ 0 mls/hr 1X ONCE IV Last administered on 09:04; Start 06/25/17 at 09:30; Stop 06/25/17 at 09:31; Status DC Furosemide (Lasix) 40 mg 1X ONCE IVP Last administered on 06/25/17 09:35; Start 06/25/17 at 09:30; Stop 06/25/17 at 09:31; Status DC Labetalol HCl (Normodyne) 20 mg 1X ONCE IVP Last administered on 06/25/17 09 :36; Start 06/25/17 at 09:30; Stop 06/25/17 at 09:31; Status DC Aspirin (Berny Aspirin) 325 mg 1X ONCE PO Last administered on 06/25/17 09: 40; Start 06/25/17 at 09:45; Stop 06/25/17 at 09:46; Status DC Metoprolol Tartrate (Lopressor) 25 mg BID PO Last administered on 06/25/17 20 :51; Start 06/25/17 at 11:00; Stop 06/26/17 at 08:25; Status DC Furosemide (Lasix) 40 mg [id number] IVP Last administered on 06/26/17 09:20; Start 06/25/17 at 11:00 Labetalol HCl (Normodyne) 20 mg PRN Q2HRS PRN IVP ELEVATED BP, SEE COMMENTS Last administered on 06/26/17 05:16; Start 06/25/17 at 10:45 Aspirin (Ecotrin) 81 mg DAILYWBKFT PO Last administered on 06/26/17 09:19; Start 06/26/17 at 08:00 Atorvastatin Calcium (Lipitor) 40 mg QHS PO ; Start 06/25/17 at 21:00; Stop at 08:01; Status DC Amlodipine Besylate (Norvasc) 10 mg DAILY PO Last administered on 06/26/17 09 :21; Start 06/25/17 at 12:30 Nicardipine HCl 50 mg/Sodium Chloride 270 ml @ 0 mls/hr CONT PRN IV SEE I/O RECORD Last administered on 06/26/17 05:49; Start 06/25/17 at 12:30 Info (Do NOT chart on this placeholder) 1 each 1X ONCE MC ; Start 06/25/17 at 13:30; Stop 06/25/17 at 13:31; Status UNV Influenza Virus Vaccine Quadrival (Fluarix Quad [id number] Syringe) 0.5 ml ONCE ONCE VAX IM ; Start 06/26/17 at 09:00; Stop 06/26/17 at 09:01; Status DC Amlodipine Besylate (Norvasc) 10 mg DAILY PO ; Start 06/25/17 at 17:00; Stop 06/26/17 at 08:01; Status DC Clonidine HCl (Catapres) 0.1 mg BID PO Last administered on 06/25/17 20:52; Start 06/25/17 at 21:00; Stop 06/26/17 at 08:25; Status DC Hydralazine HCl (Apresoline) 25 mg TID PO Last administered on 06/25/17 20:52 ; Start 06/25/17 at 16:00; Stop 06/26/17 at 08:25; Status DC Atorvastatin Calcium (Lipitor) 80 mg QHS PO Last administered on 06/25/17 20: 52; Start 06/25/17 at 21:00 Carvedilol (Coreg) 50 mg BIDWMEALS PO Last administered on 06/25/17 17:33; Start 06/25/17 at 17:00; Stop 06/26/17 at 08:25; Status DC Gabapentin (Neurontin) 800 mg TID PO Last administered on 06/26/17 09:21; Start 06/25/17 at 16:15 Insulin Aspart (NovoLOG) 0-7 UNITS QIDACHS SQ ; Start 06/25/17 at 16:30 Dextrose (Dextrose 50%-Water Syringe) 12.5 gm PRN Q15MIN PRN IV SEE COMMENTS; Start 06/25/17 at 15:45 Carvedilol (Coreg) 25 mg BIDWMEALS PO ; Start 06/26/17 at 17:00 Clonidine HCl (Catapres) 0.1 mg PRN Q8HRS PRN PO ELEVATED BP, SEE COMMENTS; Start 06/26/17 at 21:00 Hydralazine HCl (Apresoline) 50 mg TID PO Last administered on 06/26/17 09:20 ; Start 06/26/17 at 09:00 Isosorbide Mononitrate (Imdur) 60 mg DAILY PO Last administered on 06/26/17 09:21; Start 06/26/17 at 09:00 Active Scripts Active Reported Metformin Hcl Er (Metformin Hcl) 1,000 Mg Tab.er.24 1,000 Mg PO DAILYWBKFT Hydralazine Hcl 25 Mg Tablet 1 Tab PO TID Clonidine Hcl 0.1 Mg Tablet 1 Tab PO BID Carvedilol 25 Mg Tablet 2 Tab PO BID Atorvastatin Calcium 80 Mg Tablet 1 Tab PO DAILY Amlodipine Besylate 10 Mg Tablet 10 Mg PO DAILY Gabapentin 800 Mg Tablet 800 Mg PO TID Glimepiride 4 Mg Tablet 1 Tab PO BID Allergies Allergies: Coded Allergies: No Known Drug Allergies (Unverified , 06/25/17) ROS General: YES: Fatigue, Malaise PSYCHOLOGICAL ROS: YES: Anxiety Eyes: Yes Decreased vision HEENT: YES: Heacaches Respiratory: YES: Cough, Orthopnea, Shortness of breath Cardiovascular: yes Chest Pain, yes Orthopnea, yes Lt Headedness Gastrointestinal: Yes Nausea, Yes Constipation Genitourinary: YES Other (NOCTURIA) Musculoskeletal: Yes Muscular Weakness Neurological: Yes Headaches Skin: Yes Dry Skin Physical Exam General: Alert, Oriented X3, Cooperative, No acute distress HEENT: Atraumatic, PERRLA, EOMI, Mucous membr. moist/pink Lungs: Clear to auscultation, Normal air movement Heart: Regular rate, Other (POS S4) Abdomen: Normal bowel sounds, Soft Extremities: No clubbing Skin: No rashes, No breakdown, No significant lesion Neuro: Normal speech, Cranial nerves 3-12 NL Psych/Mental Status: Mental status NL, Mood NL MUSCULOSKELETAL: No joint tenderness, No deformity Vitals VITALS Vital Signs Date Time Temp Pulse Resp B/P (MAP) Pulse Ox O2 Delivery O2 Flow Rate FiO2 06/26/17 10:15 106 28 151/86 (107) 96 Room Air 06/26/17 08:00 98.8 98.8 Labs Labs Laboratory Tests Test 06/25/17 08:44 06/25/17 08:50 06/25/17 09:02 06/25/17 09:34 White Blood Count 7.6 x10^3/uL (4.0-11.0) Red Blood Count 4.08 x10^6/uL (4.30-5.70) Hemoglobin 10.7 g/dL (13.0-17.5) Hematocrit 33.5 % (39.0-53.0) Mean Corpuscular Volume 82 fL (79-100) Mean Corpuscular Hemoglobin 26 pg (25-35) Mean Corpuscular Hemoglobin Concent 32 g/dL (31-37) Red Cell Distribution Width 18.9 % (11.5-14.5) Platelet Count 233 x10^3/uL (140-400) Neutrophils (%) (Auto) 75 % (31-73) Lymphocytes (%) (Auto) 11 % (24-48) Monocytes (%) (Auto) 8 % (0-9) Eosinophils (%) (Auto) 6 % (0-3) Basophils (%) (Auto) 1 % (0-3) Neutrophils # (Auto) 5.7 x10^3uL (1.8-7.7) Lymphocytes # (Auto) 0.9 x10^3/uL (1.0-4.8) Monocytes # (Auto) 0.6 x10^3/uL (0.0-1.1) Eosinophils # (Auto) 0.4 x10^3/uL (0.0-0.7) Basophils # (Auto) 0.0 x10^3/uL (0.0-0.2) Prothrombin Time 12.9 SEC (11.7-14.0) Prothromb Time International Ratio 1.0 (0.8-1.1) Sodium Level 144 mmol/L (136-145) Potassium Level 3.9 mmol/L (3.5-5.1) Chloride Level 108 mmol/L (98-107) Carbon Dioxide Level 25 mmol/L (21-32) Anion Gap 11 (6-14) 17 mmol/L (6-14) Blood Urea Nitrogen 24 mg/dL (8-26) Creatinine 2.8 mg/dL (0.7-1.3) Estimated GFR (Cockcroft-Gault) 23.8 BUN/Creatinine Ratio 9 (6-20) Glucose Level 135 mg/dL (70-99) 133 mg/dL (70-99) Lactic Acid Level 1.9 mmol/L (0.4-2.0) Calcium Level 8.7 mg/dL (8.5-10.1) Magnesium Level 1.9 mg/dL (1.8-2.4) Total Bilirubin 0.3 mg/dL (0.2-1.0) Aspartate Amino Transf (AST/SGOT) 46 U/L (15-37) Alanine Aminotransferase (ALT/SGPT) 39 U/L (16-63) Alkaline Phosphatase 81 U/L (46-116) Troponin I Quantitative 0.024 ng/mL (0.000-0.055) Total Protein 7.3 g/dL (6.4-8.2) Albumin 2.5 g/dL (3.4-5.0) Albumin/Globulin Ratio 0.5 (1.0-1.7) Triglycerides Level 121 mg/dL (0-150) Cholesterol Level 214 mg/dL (0-200) LDL Cholesterol, Calculated 129 mg/dL (0-100) VLDL Cholesterol, Calculated 24 mg/dL (0-40) Non-HDL Cholesterol Calculated 153 mg/dL (0-129) HDL Cholesterol 61 mg/dL (40-60) Cholesterol/HDL Ratio 3.5 Bedside Hemoglobin 11.2 g/dL (14-18) Bedside Hematocrit 33 % (37-52) Bedside Sodium 145 mmol/L (135-145) Bedside Potassium 3.8 mmol/L (3.5-5.0) Bedside Chloride 110 mmol/L (98-110) Bedside Total CO2 24 mmol/L (23-32) Bedside Blood Urea Nitrogen 24 mg/dL (8-26) Bedside Creatinine 2.8 mg/dL (0.5-1.4) Bedside Ionized Calcium (Lima) 1.17 mmol/L (1.13-1.32) Bedside Troponin I 0.03 ng/ml (<0.08) Urine Collection Type Unknown Urine Color Yellow Urine Clarity Clear Urine pH 7.0 Urine Specific [place] <=1.005 Urine Protein >=300 mg/dL (NEG-TRACE) Urine Glucose (UA) Negative mg/dL (NEG) Urine Ketones (Stick) Negative mg/dL (NEG) Urine Blood Small (NEG) Urine Nitrite Negative (NEG) Urine Bilirubin Negative (NEG) Urine Urobilinogen Dipstick 0.2 mg/dL (0.2 mg/dL) Urine Leukocyte Esterase Negative (NEG) Urine RBC 11-20 /HPF (0-2) Urine WBC 0 /HPF (0-4) Urine Squamous Epithelial Cells Occ /LPF Urine Bacteria 0 /HPF (0-FEW) Urine Opiates Screen Pos (NEG) Urine Methadone Screen Neg (NEG) Urine Barbiturates Neg (NEG) Urine Phencyclidine Screen Neg (NEG) Urine Amphetamine/Methamphetamine Neg (NEG) Urine Benzodiazepines Screen Neg (NEG) Urine Cocaine Screen Neg (NEG) Urine Cannabinoids Screen Neg (NEG) Urine Ethyl Alcohol Neg (NEG) Test 06/25/17 12:00 06/25/17 16:08 06/25/17 17:35 06/25/17 20:59 Nasal Screen MRSA (PCR) Negative (Negative) Troponin I Quantitative 0.122 ng/mL (0.000-0.055) Glucose (Fingerstick) 109 mg/dL (70-99) 166 mg/dL (70-99) Test 06/25/17 22:10 06/26/17 08:56 Troponin I Quantitative 0.120 ng/mL (0.000-0.055) Glucose (Fingerstick) 132 mg/dL (70-99) Laboratory Tests Test 06/25/17 12:00 06/25/17 16:08 06/25/17 17:35 06/25/17 20:59 Nasal Screen MRSA (PCR) Negative (Negative) Troponin I Quantitative 0.122 ng/mL (0.000-0.055) Glucose (Fingerstick) 109 mg/dL (70-99) 166 mg/dL (70-99) Test 06/25/17 22:10 06/26/17 08:56 Troponin I Quantitative 0.120 ng/mL (0.000-0.055) Glucose (Fingerstick) 132 mg/dL (70-99) Assessment/Plan Assessment/Plan IMP HTN EMERGENCY CHEST PAIN DM II RENAL FAILURE-PROB STAGE 3 CKD POSSIBLE MILD ANTONIA-BASELINE CR NOT KNOW PROTEINURIA HX OF CAD-CABG IN [facility]EMBER IN [facility] [place] CHF - ACUTE ON CHRONIC DIASTOLIC FROM HTN NON COMPLIANCE PLAN ENC COMPLIANCE CARDENE GTT ENC FOLLOW UP WITH RENAL OP D/W PT IMPORTANCE OF HTN AND DM II CONTROL IN SLOWING PROGRESSIVE END ORGAN DAMAGE RENAL SONOGRAM CARDIOLOGY ANNETTE PAREDES MD Jun 26, 2017 11:36
--- NOTE | 2017-06-26 11:58 | PDOC ---
PROGRESS NOTES Chief Complaint Chief Complaint Chest pain malignant HTN PMH: CAD HTN Syncope hyperlipidemia GERD Anemia CRI DM Smoker substance abuse noncompliant with BP meds History of Present Illness History of Present Illness Pt was laying in bed and conversant. Pt in ICU He appears to be in NAD and does not complain of any N/V, chest pain, or dizziness. Pt has a cardine drip going. Discussed plan of care with him and his RN including getting him off the cardine drip CXR - pulmonary vascualr congestion LLL atelectasis troponins - .177 - mildly elevated Lipid panel - all elevated, HDL decreased Vitals Vitals Vital Signs Date Time Temp Pulse Resp B/P (MAP) Pulse Ox O2 Delivery O2 Flow Rate FiO2 06/26/17 10:15 106 28 151/86 (107) 96 Room Air 06/26/17 08:00 98.8 98.8 Physical Exam General: Alert, Oriented X3, Cooperative, No acute distress Heart: Regular rate, Normal S1, Normal S2, No murmurs Lungs: Clear Abdomen: Normal bowel sounds, Soft Extremities: No clubbing, No cyanosis Skin: No rashes, No breakdown, No significant lesion Labs LABS Laboratory Tests Test 06/25/17 12:00 06/25/17 16:08 06/25/17 17:35 06/25/17 20:59 Nasal Screen MRSA (PCR) Negative (Negative) Troponin I Quantitative 0.122 ng/mL (0.000-0.055) Glucose (Fingerstick) 109 mg/dL (70-99) 166 mg/dL (70-99) Test 06/25/17 22:10 06/26/17 08:56 Troponin I Quantitative 0.120 ng/mL (0.000-0.055) Glucose (Fingerstick) 132 mg/dL (70-99) Review of Systems Review of Systems Pt fatigues Pt hungry Pt complains of sleepiness Assessment and Plan Assessmemt and Plan Problems Medical Problems: (1) Malignant hypertension Status: Acute (2) Unstable angina Status: Acute Chest pain malignant HTN PMH: CAD HTN Syncope hyperlipidemia GERD Anemia CRI DM Smoker substance abuse noncompliant with BP meds Plan: awaiting cardiology Hope to get off of cardine drip possible transition to oral meds recheck labs ICU monitoring PT/OT appreciate subspecialty input possible TTE tomorrow Problems: Comment Review of Relevant I have reviewed the following items nabil (where applicable) has been applied. Labs Laboratory Tests Test 06/25/17 08:44 06/25/17 08:50 06/25/17 09:02 06/25/17 09:34 White Blood Count 7.6 x10^3/uL (4.0-11.0) Red Blood Count 4.08 x10^6/uL (4.30-5.70) Hemoglobin 10.7 g/dL (13.0-17.5) Hematocrit 33.5 % (39.0-53.0) Mean Corpuscular Volume 82 fL (79-100) Mean Corpuscular Hemoglobin 26 pg (25-35) Mean Corpuscular Hemoglobin Concent 32 g/dL (31-37) Red Cell Distribution Width 18.9 % (11.5-14.5) Platelet Count 233 x10^3/uL (140-400) Neutrophils (%) (Auto) 75 % (31-73) Lymphocytes (%) (Auto) 11 % (24-48) Monocytes (%) (Auto) 8 % (0-9) Eosinophils (%) (Auto) 6 % (0-3) Basophils (%) (Auto) 1 % (0-3) Neutrophils # (Auto) 5.7 x10^3uL (1.8-7.7) Lymphocytes # (Auto) 0.9 x10^3/uL (1.0-4.8) Monocytes # (Auto) 0.6 x10^3/uL (0.0-1.1) Eosinophils # (Auto) 0.4 x10^3/uL (0.0-0.7) Basophils # (Auto) 0.0 x10^3/uL (0.0-0.2) Prothrombin Time 12.9 SEC (11.7-14.0) Prothromb Time International Ratio 1.0 (0.8-1.1) Sodium Level 144 mmol/L (136-145) Potassium Level 3.9 mmol/L (3.5-5.1) Chloride Level 108 mmol/L (98-107) Carbon Dioxide Level 25 mmol/L (21-32) Anion Gap 11 (6-14) 17 mmol/L (6-14) Blood Urea Nitrogen 24 mg/dL (8-26) Creatinine 2.8 mg/dL (0.7-1.3) Estimated GFR (Cockcroft-Gault) 23.8 BUN/Creatinine Ratio 9 (6-20) Glucose Level 135 mg/dL (70-99) 133 mg/dL (70-99) Lactic Acid Level 1.9 mmol/L (0.4-2.0) Calcium Level 8.7 mg/dL (8.5-10.1) Magnesium Level 1.9 mg/dL (1.8-2.4) Total Bilirubin 0.3 mg/dL (0.2-1.0) Aspartate Amino Transf (AST/SGOT) 46 U/L (15-37) Alanine Aminotransferase (ALT/SGPT) 39 U/L (16-63) Alkaline Phosphatase 81 U/L (46-116) Troponin I Quantitative 0.024 ng/mL (0.000-0.055) Total Protein 7.3 g/dL (6.4-8.2) Albumin 2.5 g/dL (3.4-5.0) Albumin/Globulin Ratio 0.5 (1.0-1.7) Triglycerides Level 121 mg/dL (0-150) Cholesterol Level 214 mg/dL (0-200) LDL Cholesterol, Calculated 129 mg/dL (0-100) VLDL Cholesterol, Calculated 24 mg/dL (0-40) Non-HDL Cholesterol Calculated 153 mg/dL (0-129) HDL Cholesterol 61 mg/dL (40-60) Cholesterol/HDL Ratio 3.5 Bedside Hemoglobin 11.2 g/dL (14-18) Bedside Hematocrit 33 % (37-52) Bedside Sodium 145 mmol/L (135-145) Bedside Potassium 3.8 mmol/L (3.5-5.0) Bedside Chloride 110 mmol/L (98-110) Bedside Total CO2 24 mmol/L (23-32) Bedside Blood Urea Nitrogen 24 mg/dL (8-26) Bedside Creatinine 2.8 mg/dL (0.5-1.4) Bedside Ionized Calcium ([place]ima) 1.17 mmol/L (1.13-1.32) Bedside Troponin I 0.03 ng/ml (<0.08) Urine Collection Type Unknown Urine Color Yellow Urine Clarity Clear Urine pH 7.0 Urine Specific [place] <=1.005 Urine Protein >=300 mg/dL (NEG-TRACE) Urine Glucose (UA) Negative mg/dL (NEG) Urine Ketones (Stick) Negative mg/dL (NEG) Urine Blood Small (NEG) Urine Nitrite Negative (NEG) Urine Bilirubin Negative (NEG) Urine Urobilinogen Dipstick 0.2 mg/dL (0.2 mg/dL) Urine Leukocyte Esterase Negative (NEG) Urine RBC 11-20 /HPF (0-2) Urine WBC 0 /HPF (0-4) Urine Squamous Epithelial Cells Occ /LPF Urine Bacteria 0 /HPF (0-FEW) Urine Opiates Screen Pos (NEG) Urine Methadone Screen Neg (NEG) Urine Barbiturates Neg (NEG) Urine Phencyclidine Screen Neg (NEG) Urine Amphetamine/Methamphetamine Neg (NEG) Urine Benzodiazepines Screen Neg (NEG) Urine Cocaine Screen Neg (NEG) Urine Cannabinoids Screen Neg (NEG) Urine Ethyl Alcohol Neg (NEG) Test 06/25/17 12:00 06/25/17 16:08 06/25/17 17:35 06/25/17 20:59 Nasal Screen MRSA (PCR) Negative (Negative) Troponin I Quantitative 0.122 ng/mL (0.000-0.055) Glucose (Fingerstick) 109 mg/dL (70-99) 166 mg/dL (70-99) Test 06/25/17 22:10 06/26/17 08:56 Troponin I Quantitative 0.120 ng/mL (0.000-0.055) Glucose (Fingerstick) 132 mg/dL (70-99) Laboratory Tests Test 06/25/17 12:00 06/25/17 16:08 06/25/17 17:35 06/25/17 20:59 Nasal Screen MRSA (PCR) Negative (Negative) Troponin I Quantitative 0.122 ng/mL (0.000-0.055) Glucose (Fingerstick) 109 mg/dL (70-99) 166 mg/dL (70-99) Test 06/25/17 22:10 06/26/17 08:56 Troponin I Quantitative 0.120 ng/mL (0.000-0.055) Glucose (Fingerstick) 132 mg/dL (70-99) Microbiology 06/25/17 Blood Culture - Preliminary, Resulted NO GROWTH AFTER 1 DAY Medications Current Medications Sodium Chloride 1,000 ml @ 1,000 mls/hr 1X ONCE IV Last administered on 06/25t 08:56; Start 10/11/17 at 08:45; Stop 06/25/17 at 09:44; Status DC Nitroglycerin/ Dextrose 250 ml @ As Directed STK-MED ONCE IV ; Start 06/25/17 at 08:54; Stop 06/25/17 at 08:55; Status DC Nitroglycerin/ Dextrose 250 ml @ 0 mls/hr 1X ONCE IV Last administered on 09:04; Start 06/25/17 at 09:30; Stop 06/25/17 at 09:31; Status DC Furosemide (Lasix) 40 mg 1X ONCE IVP Last administered on 06/25/17 09:35; Start 06/25/17 at 09:30; Stop 06/25/17 at 09:31; Status DC Labetalol HCl (Normodyne) 20 mg 1X ONCE IVP Last administered on 06/25/17 09 :36; Start 06/25/17 at 09:30; Stop 06/25/17 at 09:31; Status DC Aspirin (Berny Aspirin) 325 mg 1X ONCE PO Last administered on 06/25/17 09: 40; Start 06/25/17 at 09:45; Stop 06/25/17 at 09:46; Status DC Metoprolol Tartrate (Lopressor) 25 mg BID PO Last administered on 06/25/17 20 :51; Start 06/25/17 at 11:00; Stop 06/26/17 at 08:25; Status DC Furosemide (Lasix) 40 mg [id number] IVP Last administered on 06/26/17 09:20; Start 06/25/17 at 11:00 Labetalol HCl (Normodyne) 20 mg PRN Q2HRS PRN IVP ELEVATED BP, SEE COMMENTS Last administered on 06/26/17 05:16; Start 06/25/17 at 10:45 Aspirin (Ecotrin) 81 mg DAILYWBKFT PO Last administered on 06/26/17 09:19; Start 06/26/17 at 08:00 Atorvastatin Calcium (Lipitor) 40 mg QHS PO ; Start 06/25/17 at 21:00; Stop at 08:01; Status DC Amlodipine Besylate (Norvasc) 10 mg DAILY PO Last administered on 06/26/17 09 :21; Start 06/25/17 at 12:30 Nicardipine HCl 50 mg/Sodium Chloride 270 ml @ 0 mls/hr CONT PRN IV SEE I/O RECORD Last administered on 06/26/17 05:49; Start 06/25/17 at 12:30; Stop at 11:45; Status DC Info (Do NOT chart on this placeholder) 1 each 1X ONCE MC ; Start 06/25/17 at 13:30; Stop 06/25/17 at 13:31; Status UNV Influenza Virus Vaccine Quadrival (Fluarix Quad [id number] Syringe) 0.5 ml ONCE ONCE VAX IM ; Start 06/26/17 at 09:00; Stop 06/26/17 at 09:01; Status DC Amlodipine Besylate (Norvasc) 10 mg DAILY PO ; Start 06/25/17 at 17:00; Stop 06/26/17 at 08:01; Status DC Clonidine HCl (Catapres) 0.1 mg BID PO Last administered on 06/25/17 20:52; Start 06/25/17 at 21:00; Stop 06/26/17 at 08:25; Status DC Hydralazine HCl (Apresoline) 25 mg TID PO Last administered on 06/25/17 20:52 ; Start 06/25/17 at 16:00; Stop 06/26/17 at 08:25; Status DC Atorvastatin Calcium (Lipitor) 80 mg QHS PO Last administered on 06/25/17 20: 52; Start 06/25/17 at 21:00 Carvedilol (Coreg) 50 mg BIDWMEALS PO Last administered on 06/25/17 17:33; Start 06/25/17 at 17:00; Stop 06/26/17 at 08:25; Status DC Gabapentin (Neurontin) 800 mg TID PO Last administered on 06/26/17 09:21; Start 06/25/17 at 16:15 Insulin Aspart (NovoLOG) 0-7 UNITS QIDACHS SQ ; Start 06/25/17 at 16:30 Dextrose (Dextrose 50%-Water Syringe) 12.5 gm PRN Q15MIN PRN IV SEE COMMENTS; Start 06/25/17 at 15:45 Carvedilol (Coreg) 25 mg BIDWMEALS PO ; Start 06/26/17 at 17:00 Clonidine HCl (Catapres) 0.1 mg PRN Q8HRS PRN PO ELEVATED BP, SEE COMMENTS; Start 06/26/17 at 21:00 Hydralazine HCl (Apresoline) 50 mg TID PO Last administered on 06/26/17 09:20 ; Start 06/26/17 at 09:00 Isosorbide Mononitrate (Imdur) 60 mg DAILY PO Last administered on 06/26/17 09:21; Start 06/26/17 at 09:00 Carvedilol (Coreg) 25 mg 1X ONCE PO ; Start 06/26/17 at 12:00; Stop 06/26/17 at 12:01 Active Scripts Active Reported Metformin Hcl Er (Metformin Hcl) 1,000 Mg Tab.er.24 1,000 Mg PO DAILYWBKFT Hydralazine Hcl 25 Mg Tablet 1 Tab PO TID Clonidine Hcl 0.1 Mg Tablet 1 Tab PO BID Carvedilol 25 Mg Tablet 2 Tab PO BID Atorvastatin Calcium 80 Mg Tablet 1 Tab PO DAILY Amlodipine Besylate 10 Mg Tablet 10 Mg PO DAILY Gabapentin 800 Mg Tablet 800 Mg PO TID Glimepiride 4 Mg Tablet 1 Tab PO BID Vitals/I & O Vital Sign - Last 24 Hours 06/25/17 06/25/17 06/25/17 06/25/17 12:00 12:15 12:30 12:36 Temp 99.8 99.8 Pulse 108 114 110 109 Resp 28 20 B/P (MAP) 211/123 (152) 219/126 (157) 223/124 (157) 223/124 Pulse Ox 97 96 98 O2 Delivery Room Air Room Air Room Air 06/25/17 06/25/17 06/25/17 06/25/17 12:45 13:00 13:15 13:30 Pulse 114 102 100 100 Resp 20 28 32 26 B/P (MAP) 222/125 (157) 185/113 (137) 176/108 (130) 193/103 (133) Pulse Ox 97 96 94 94 O2 Delivery Room Air Room Air Room Air Room Air 06/25/17 06/25/17 06/25/17 06/25/17 13:45 14:00 14:15 14:30 Pulse 98 98 102 106 Resp 26 26 30 30 B/P (MAP) 179/97 (124) 180/95 (123) 176/104 (128) 165/94 (117) Pulse Ox 96 95 93 95 O2 Delivery Room Air Room Air Room Air Room Air 06/25/17 06/25/17 06/25/17 06/25/17 14:45 15:00 15:15 15:30 Pulse 100 106 108 104 Resp 27 21 24 25 B/P (MAP) 173/93 (119) 187/89 (121) 189/86 (120) 194/98 (130) Pulse Ox 95 96 93 93 O2 Delivery Room Air Room Air Room Air Room Air 06/25/17 06/25/17 06/25/17 06/25/17 15:45 16:00 16:00 16:06 Temp 99.6 99.6 Pulse 108 112 109 Resp 20 20 B/P (MAP) 198/99 (132) 185/96 (125) 185/96 Pulse Ox 96 95 O2 Delivery Room Air Room Air Room Air 06/25/17 06/25/17 06/25/17 06/25/17 16:15 16:30 16:45 17:00 Pulse 106 106 112 108 Resp 20 20 20 20 B/P (MAP) 197/100 (132) 181/95 (123) 191/87 (121) 183/89 (120) Pulse Ox 96 94 95 95 O2 Delivery Room Air Room Air Room Air Room Air 06/25/17 06/25/17 06/25/17 06/25/17 17:15 17:30 17:32 17:33 Pulse 110 112 114 114 Resp 20 20 B/P (MAP) 177/94 (121) 166/99 (121) 166/99 166/99 Pulse Ox 96 95 O2 Delivery Room Air Room Air 06/25/17 06/25/17 06/25/17 06/25/17 17:45 18:00 19:00 19:25 Temp 98.4 98.4 Pulse 108 104 100 Resp 20 20 30 B/P (MAP) 178/97 (124) 183/94 (123) 153/73 (99) Pulse Ox 96 97 98 O2 Delivery Room Air Room Air Room Air Room Air 06/25/17 06/25/17 06/25/17 06/25/17 20:00 20:51 20:52 20:52 Pulse 99 96 96 96 Resp 24 B/P (MAP) 149/80 (103) 140/94 140/94 140/94 Pulse Ox 95 O2 Delivery Room Air 06/25/17 06/25/17 06/25/17 06/26/17 21:00 22:00 23:00 00:00 Temp 98.9 98.9 Pulse 95 91 95 90 Resp 18 B/P (MAP) 140/81 (100) 150/82 (104) 162/79 (106) 163/80 (107) Pulse Ox 95 95 97 94 O2 Delivery Room Air Room Air Room Air Room Air 06/26/17 06/26/17 06/26/17 06/26/17 00:00 01:00 02:00 02:19 Pulse 86 92 88 Resp B/P (MAP) 167/97 (120) 174/95 (121) 178/89 Pulse Ox 96 94 O2 Delivery Room Air Room Air Room Air 06/26/17 06/26/17 06/26/17 06/26/17 03:00 04:00 04:00 05:00 Temp 99.1 99.1 Pulse 88 87 88 Resp B/P (MAP) 164/92 (116) 166/88 (114) 173/86 (115) Pulse Ox 94 96 94 O2 Delivery Room Air Room Air Room Air Room Air 06/26/17 06/26/17 06/26/17 06/26/17 05:16 05:45 05:58 06:10 Pulse 94 92 96 92 Resp B/P (MAP) 173/84 179/101 (127) 181/99 (126) 131/86 (101) Pulse Ox 97 97 97 O2 Delivery Room Air Room Air Room Air 06/26/17 06/26/17 06/26/17 06/26/17 06:25 07:00 07:30 08:00 Temp 98.8 98.8 Pulse 94 92 92 Resp B/P (MAP) 158/89 (112) 180/89 (119) 170/88 (115) 184/94 (124) Pulse Ox 94 95 92 O2 Delivery Room Air Room Air Room Air 06/26/17 06/26/17 06/26/17 06/26/17 08:00 08:15 08:30 08:45 Pulse 90 90 94 Resp B/P (MAP) 156/97 (116) 165/86 (112) 171/82 (111) Pulse Ox 96 95 94 O2 Delivery Room Air Room Air Room Air Room Air 06/26/17 06/26/17 06/26/17 06/26/17 09:00 09:15 09:20 09:21 Pulse 96 92 92 94 Resp 27 27 B/P (MAP) 157/88 (111) 151/83 (105) 151/83 151/83 Pulse Ox 94 96 O2 Delivery Room Air Room Air 06/26/17 06/26/17 06/26/17 06/26/17 09:21 09:30 09:45 10:00 Pulse 94 98 92 90 Resp 25 33 30 B/P (MAP) 151/83 156/84 (108) 175/90 (118) 150/82 (104) Pulse Ox 96 94 97 O2 Delivery Room Air Room Air Room Air 06/26/17 10:15 Pulse 106 Resp 28 B/P (MAP) 151/86 (107) Pulse Ox 96 O2 Delivery Room Air Intake and Output 06/26/17 06/26/17 06/27/17 15:00 23:00 07:00 Intake Total 360 ml Output Total 1000 ml Balance -640 ml MARK SALDANA III DO Jun 26, 2017 11:58
[2017-06-26] MEDS ORDERED: CARVEDILOL 12.5 MG TABLET. PO ONE (12:00)
--- NOTE | 2017-06-26 12:51 | RAD ---
Portable chest, 06/26/2017: History: Congestive heart failure Comparison is made to yesterday's study. The heart is within normal limits in size. There has been a previous median sternotomy. There is a moderate size bulla in the right upper chest. Mild basilar opacities persist compatible with a small amount of pleural fluid and underlying atelectasis, left greater than right. There is mild linear atelectasis or scarring laterally in the right midlung. No new abnormality is seen. IMPRESSION: Ongoing small bilateral pleural effusions.
[2017-06-26] MEDS ORDERED: hydrALAZINE 20 MG/ML VIAL. IVP ONE (13:45)
[2017-06-26] MEDS ORDERED: ISOSORBIDE MONONITRATE ER 30 MG TAB.ER.24H PO ONE (14:00)
[2017-06-26 14:18] LABS: CALCIUM 8.6 mg/dL (8.5-10.1); CREATININE 2.7 mg/dL (0.7-1.3); GFR 30.1; MAGNESIUM 1.6 mg/dL (1.8-2.4); POTASSIUM 3.5 mmol/L (3.5-5.1)
[2017-06-26] MEDS ORDERED: MAGNESIUM SULFATE 2GM 50 ML IV ONE (15:00)
--- NOTE | 2017-06-26 15:08 | RAD ---
Indication renal failure. Grayscale imaging targeted to the kidneys was performed. No similar imaging is available. The right kidney measures 13 x 5.6 x 4.1 cm. There is a hypoechoic 2 cm mass compatible with a cyst. No hydronephrosis or definite solid mass is seen. The kidney is quite echogenic compatible with medical renal disease. The left kidney measures 13 x 6.5 x 4.6 cm. No hydronephrosis or mass is seen but it too is echogenic compatible with medical renal disease. Urinary bladder appeared grossly normal. The visualized inferior vena cava appeared normal. The proximal abdominal aorta appeared unremarkable. The mid and distal abdominal aorta were obscured by gas. Incidental note was made, during the examination, of bilateral pleural effusions. IMPRESSION: Both kidneys are echogenic compatible with medical renal disease. Right renal cyst. Bilateral pleural effusions
[2017-06-26] MEDS: CARVEDILOL 12.5 MG TABLET. PO SCH (17:31)
[2017-06-26] MEDS: NICOTINE 14MG PATCH. TD SCH (19:55)
[2017-06-26] MEDS: ATORVASTATIN CALCIUM 40 MG TABLET. PO SCH (19:56)
[2017-06-26] MEDS ORDERED: cloNIDine HCL 0.1 MG TABLET PO PRN (21:00)
[2017-06-27] VITALS (26 sets, daily range): BP systolic 124–198; BP diastolic 69–101
[2017-06-27] MEDS: LABETALOL 20 MG/4 ML DISP.SYRIN. IVP PRN (03:52)
[2017-06-27 05:49] LABS: BASO # 0.1 x10^3/uL (0.0-0.2); BASO % 1 % (0-3); EOS % 6 % (0-3); HEMATOCRIT 26.4 % (39.0-53.0); HEMOGLOBIN 8.8 g/dL (13.0-17.5); LYMPH # 0.9 x10^3/uL (1.0-4.8); LYMPH % 13 % (24-48); MEAN CORPUSCULAR HEMOGLOBIN 27 pg (25-35); MEAN CORPUSCULAR HGB CONC 33 g/dL (31-37); MEAN CORPUSCULAR VOLUME 81 fL (79-100); MONO % 9 % (0-9); NEUT % 71 % (31-73); PLATELET COUNT 179 x10^3/uL (140-400); RED BLOOD COUNT 3.26 x10^6/uL (4.30-5.70); RED CELL DISTRIBUTION WIDTH 18.5 % (11.5-14.5)
[2017-06-27 06:22] LABS: CALCIUM 8.1 mg/dL (8.5-10.1); CREATININE 2.6 mg/dL (0.7-1.3); GFR 31.4; POTASSIUM 3.1 mmol/L (3.5-5.1)
[2017-06-27] MEDS ORDERED: POTASSIUM CHLORIDE 20 MEQ TABLET.ER. PO ONE (07:30)
[2017-06-27] MEDS ORDERED: MAGNESIUM CHLORIDE ER 64 MG TABLET.ER PO ONE ×2 (07:30)
[2017-06-27] MEDS: FUROSEMIDE 40 MG/4 ML VIAL. IVP SCH (08:18)
[2017-06-27] MEDS: GABAPENTIN 400 MG CAPSULE. PO SCH ×3 (08:18→20:55)
[2017-06-27] MEDS: NICOTINE 14MG PATCH. TD SCH (08:19)
[2017-06-27] MEDS: CARVEDILOL 12.5 MG TABLET. PO SCH ×2 (08:19→17:05)
[2017-06-27] MEDS: ISOSORBIDE MONONITRATE ER 30 MG TAB.ER.24H PO SCH (08:19)
[2017-06-27] MEDS: amLODIPine BESYLATE 10 MG TABLET PO SCH (08:20)
[2017-06-27] MEDS: hydrALAZINE 25 MG TABLET PO SCH ×3 (08:20→20:56)
[2017-06-27] MEDS: ASPIRIN ENTERIC COATED 81 MG TABLET.DR. PO SCH (08:26)
[2017-06-27] MEDS: INSULIN ASPART 300 UNITS/3 ML INSULN.PEN SQ SCH ×4 (08:35→20:58)
--- NOTE | 2017-06-27 09:38 | RAD ---
APPROVED REPORT Patient Location: IN-PATIENT Indications Uncontrolled HTN Renal Artery Doppler Right Renal Artery Left Renal Arter y Proximal 110.0/25.0 cm/secProximal 54.0/13.0 cm/sec Mid 80.0/24.0 cm/secMid 72.0/18.0 cm/sec Distal 105.0/34.0 cm/secDistal 57.0/21.0 cm/sec Renal/Aorta Ratio 1.62Renal/Aorta Ratio 1.06 Prox. Resistive Index 0.78Prox. Resistive Index 0.76 Mid Resistive Index 0.70Mid Resistive Index 0.76 Distal Resistive Index 0.68Distal Resistive Index 0.64 Renal Measurements RightLeft Kidney Ixwctj67.8 cm cmKidney Kxwdhe95.1 cm cm Right Additional FindingsLeft Additional Findings Findings On tate scale images the left and right kidneys appear at the higher limits of normal in size. Spectral waveforms and color Doppler does not reveal any evidence of significant renal artery stenosi s bilaterally. Renal to aortic ratios are within normal limits. The bilateral renal veins appear to b e patent. Critical Notification Critical Value: No <Conclusion> No evidence of renal artery stenosis bilaterally.
[2017-06-27] MEDS: ACETAMINOPHEN 325 MG TABLET. PO PRN (09:45)
--- NOTE | 2017-06-27 11:08 | PDOC ---
Renal-Progress Notes Subjective Notes Notes NO NEW COMPLAINTS History of Present Illness Hx of present illness STABLE Vitals Vitals Vital Signs Date Time Temp Pulse Resp B/P (MAP) Pulse Ox O2 Delivery O2 Flow Rate FiO2 06/27/17 10:20 90 18 144/72 (96) 98 Room Air 06/27/17 09:00 99.3 99.3 Weight Weight [ ] I.O. Intake and Output Intake and Output 06/28/17 07:00 Intake Total 340 ml Output Total 300 ml Balance 40 ml Intake Oral 340 ml Output Urine Total 300 ml Labs Labs Laboratory Tests Test 06/26/17 12:24 06/26/17 13:50 06/26/17 17:31 06/26/17 20:54 Glucose (Fingerstick) 197 mg/dL (70-99) 159 mg/dL (70-99) 166 mg/dL (70-99) Sodium Level 140 mmol/L (136-145) Potassium Level 3.5 mmol/L (3.5-5.1) Chloride Level 105 mmol/L (98-107) Carbon Dioxide Level 30 mmol/L (21-32) Anion Gap 5 (6-14) Blood Urea Nitrogen 22 mg/dL (8-26) Creatinine 2.7 mg/dL (0.7-1.3) Estimated GFR (Cockcroft-Gault) 30.1 Glucose Level 213 mg/dL (70-99) Calcium Level 8.6 mg/dL (8.5-10.1) Magnesium Level 1.6 mg/dL (1.8-2.4) Test 06/27/17 04:00 06/27/17 07:50 White Blood Count 7.0 x10^3/uL (4.0-11.0) Red Blood Count 3.26 x10^6/uL (4.30-5.70) Hemoglobin 8.8 g/dL (13.0-17.5) Hematocrit 26.4 % (39.0-53.0) Mean Corpuscular Volume 81 fL (79-100) Mean Corpuscular Hemoglobin 27 pg (25-35) Mean Corpuscular Hemoglobin Concent 33 g/dL (31-37) Red Cell Distribution Width 18.5 % (11.5-14.5) Platelet Count 179 x10^3/uL (140-400) Neutrophils (%) (Auto) 71 % (31-73) Lymphocytes (%) (Auto) 13 % (24-48) Monocytes (%) (Auto) 9 % (0-9) Eosinophils (%) (Auto) 6 % (0-3) Basophils (%) (Auto) 1 % (0-3) Neutrophils # (Auto) 5.0 x10^3uL (1.8-7.7) Lymphocytes # (Auto) 0.9 x10^3/uL (1.0-4.8) Monocytes # (Auto) 0.6 x10^3/uL (0.0-1.1) Eosinophils # (Auto) 0.4 x10^3/uL (0.0-0.7) Basophils # (Auto) 0.1 x10^3/uL (0.0-0.2) Sodium Level 142 mmol/L (136-145) Potassium Level 3.1 mmol/L (3.5-5.1) Chloride Level 106 mmol/L (98-107) Carbon Dioxide Level 30 mmol/L (21-32) Anion Gap 6 (6-14) Blood Urea Nitrogen 23 mg/dL (8-26) Creatinine 2.6 mg/dL (0.7-1.3) Estimated GFR (Cockcroft-Gault) 31.4 Glucose Level 201 mg/dL (70-99) Calcium Level 8.1 mg/dL (8.5-10.1) Glucose (Fingerstick) 175 mg/dL (70-99) Micro Micro Microbiology 06/25/17 Blood Culture - Preliminary, Resulted NO GROWTH AFTER 2 DAYS Review of Systems Constitutional: yes: weakness, alert, oriented Ears/Nose/Throat: Yes: no symptom reported Eyes: Yes: no symptom reported Pulmonary: Yes no symptom reported Cardiovascular: Yes chest pain Gastrointestional: Yes: no symptom reported Genitourinary: Yes: no symptom reported Musculoskeletal: Yes: muscle stiffness Skin: Yes no symptom reported Psychiatric/Neurological: Yes: no symptom reported Endocrine: Yes: no symptom reported Physical Exam General Appearance: no apparent distress Skin: warm Respiratory: bilateral CTA Heart: S1S2 Abdomen: soft Genitourinary: bladder flat Extremities: pulses present, no edema Neurology: alert, oriented, follow commands Assessment Assessment IMP MALIGNANT HTN CKD STAGE 3 TO 4 NON COMPLIANCE CHEST PAIN HX CAD AND CABG DM II PLAN RENAL SONO WNL EXCEPT CMRD CONT WITH CARDENE GTT ADD PO CLONIDINE ENC COMPLIANCE ANNETTE AUSTIN MD Jun 27, 2017 11:08
[2017-06-27] MEDS: cloNIDine HCL 0.2 MG TABLET PO SCH ×2 (11:28→21:00)
--- NOTE | 2017-06-27 11:38 | PDOC ---
PROGRESS NOTES Chief Complaint Chief Complaint Chest pain malignant HTN PMH: CAD HTN Syncope hyperlipidemia GERD Anemia CRI DM Smoker substance abuse noncompliant with BP meds History of Present Illness History of Present Illness Patient is in the ICU He was laying in bed with the covers on and was conversant. It was discussed with him the importance of adhering to his medicine regiment to maintain optimal BP. He appears to be in NAD. No complaints of chest pain, N/V, or diarrhea. No headaches. Cariology hopes to get him off cardene drip. Magnesium and potassium were low. Replaced CXR shows small bilateral pleaural effusions. Renal echo shows a right renal cyst. Vitals Vitals Vital Signs Date Time Temp Pulse Resp B/P (MAP) Pulse Ox O2 Delivery O2 Flow Rate FiO2 06/27/17 11:28 88 139/75 06/27/17 11:00 22 99 Room Air 06/27/17 09:00 99.3 99.3 Physical Exam General: Alert, Oriented X3, Cooperative, No acute distress Heart: Regular rate, Normal S1, Normal S2, No murmurs Lungs: Clear Abdomen: Normal bowel sounds, Soft Extremities: No clubbing, No cyanosis Skin: No rashes, No breakdown, No significant lesion Labs LABS Laboratory Tests Test 06/26/17 12:24 06/26/17 13:50 06/26/17 17:31 06/26/17 20:54 Glucose (Fingerstick) 197 mg/dL (70-99) 159 mg/dL (70-99) 166 mg/dL (70-99) Sodium Level 140 mmol/L (136-145) Potassium Level 3.5 mmol/L (3.5-5.1) Chloride Level 105 mmol/L (98-107) Carbon Dioxide Level 30 mmol/L (21-32) Anion Gap 5 (6-14) Blood Urea Nitrogen 22 mg/dL (8-26) Creatinine 2.7 mg/dL (0.7-1.3) Estimated GFR (Cockcroft-Gault) 30.1 Glucose Level 213 mg/dL (70-99) Calcium Level 8.6 mg/dL (8.5-10.1) Magnesium Level 1.6 mg/dL (1.8-2.4) Test 06/27/17 04:00 06/27/17 07:50 06/27/17 11:25 White Blood Count 7.0 x10^3/uL (4.0-11.0) Red Blood Count 3.26 x10^6/uL (4.30-5.70) Hemoglobin 8.8 g/dL (13.0-17.5) Hematocrit 26.4 % (39.0-53.0) Mean Corpuscular Volume 81 fL (79-100) Mean Corpuscular Hemoglobin 27 pg (25-35) Mean Corpuscular Hemoglobin Concent 33 g/dL (31-37) Red Cell Distribution Width 18.5 % (11.5-14.5) Platelet Count 179 x10^3/uL (140-400) Neutrophils (%) (Auto) 71 % (31-73) Lymphocytes (%) (Auto) 13 % (24-48) Monocytes (%) (Auto) 9 % (0-9) Eosinophils (%) (Auto) 6 % (0-3) Basophils (%) (Auto) 1 % (0-3) Neutrophils # (Auto) 5.0 x10^3uL (1.8-7.7) Lymphocytes # (Auto) 0.9 x10^3/uL (1.0-4.8) Monocytes # (Auto) 0.6 x10^3/uL (0.0-1.1) Eosinophils # (Auto) 0.4 x10^3/uL (0.0-0.7) Basophils # (Auto) 0.1 x10^3/uL (0.0-0.2) Sodium Level 142 mmol/L (136-145) Potassium Level 3.1 mmol/L (3.5-5.1) Chloride Level 106 mmol/L (98-107) Carbon Dioxide Level 30 mmol/L (21-32) Anion Gap 6 (6-14) Blood Urea Nitrogen 23 mg/dL (8-26) Creatinine 2.6 mg/dL (0.7-1.3) Estimated GFR (Cockcroft-Gault) 31.4 Glucose Level 201 mg/dL (70-99) Calcium Level 8.1 mg/dL (8.5-10.1) Glucose (Fingerstick) 175 mg/dL (70-99) 262 mg/dL (70-99) Review of Systems Review of Systems Pt complains of hunger Pt complains of fatigue Pt complains of leg stiffness Assessment and Plan Assessmemt and Plan Problems Medical Problems: (1) Malignant hypertension Status: Acute (2) Unstable angina Status: Acute Chest pain malignant HTN PMH: CAD HTN Syncope hyperlipidemia GERD Anemia CRI DM Smoker substance abuse noncompliant with BP meds Plan: cont. ICU monitoring Hope to wean off cardene drip and transition to oral meds recheck labs Replaced potassium replaced magnesium appreciate subspecialist input Hope to D/C tomorrow if off of cadene drip and tolerating oral meds and ok with cardiology Problems: Comment Review of Relevant I have reviewed the following items nabil (where applicable) has been applied. Labs Laboratory Tests Test 06/25/17 12:00 06/25/17 16:08 06/25/17 17:35 06/25/17 20:59 Nasal Screen MRSA (PCR) Negative (Negative) Troponin I Quantitative 0.122 ng/mL (0.000-0.055) Glucose (Fingerstick) 109 mg/dL (70-99) 166 mg/dL (70-99) Test 06/25/17 22:10 06/26/17 08:56 06/26/17 12:24 06/26/17 13:50 Troponin I Quantitative 0.120 ng/mL (0.000-0.055) Glucose (Fingerstick) 132 mg/dL (70-99) 197 mg/dL (70-99) Sodium Level 140 mmol/L (136-145) Potassium Level 3.5 mmol/L (3.5-5.1) Chloride Level 105 mmol/L (98-107) Carbon Dioxide Level 30 mmol/L (21-32) Anion Gap 5 (6-14) Blood Urea Nitrogen 22 mg/dL (8-26) Creatinine 2.7 mg/dL (0.7-1.3) Estimated GFR (Cockcroft-Gault) 30.1 Glucose Level 213 mg/dL (70-99) Calcium Level 8.6 mg/dL (8.5-10.1) Magnesium Level 1.6 mg/dL (1.8-2.4) Test 06/26/17 17:31 06/26/17 20:54 06/27/17 04:00 06/27/17 07:50 Glucose (Fingerstick) 159 mg/dL (70-99) 166 mg/dL (70-99) 175 mg/dL (70-99) White Blood Count 7.0 x10^3/uL (4.0-11.0) Red Blood Count 3.26 x10^6/uL (4.30-5.70) Hemoglobin 8.8 g/dL (13.0-17.5) Hematocrit 26.4 % (39.0-53.0) Mean Corpuscular Volume 81 fL (79-100) Mean Corpuscular Hemoglobin 27 pg (25-35) Mean Corpuscular Hemoglobin Concent 33 g/dL (31-37) Red Cell Distribution Width 18.5 % (11.5-14.5) Platelet Count 179 x10^3/uL (140-400) Neutrophils (%) (Auto) 71 % (31-73) Lymphocytes (%) (Auto) 13 % (24-48) Monocytes (%) (Auto) 9 % (0-9) Eosinophils (%) (Auto) 6 % (0-3) Basophils (%) (Auto) 1 % (0-3) Neutrophils # (Auto) 5.0 x10^3uL (1.8-7.7) Lymphocytes # (Auto) 0.9 x10^3/uL (1.0-4.8) Monocytes # (Auto) 0.6 x10^3/uL (0.0-1.1) Eosinophils # (Auto) 0.4 x10^3/uL (0.0-0.7) Basophils # (Auto) 0.1 x10^3/uL (0.0-0.2) Sodium Level 142 mmol/L (136-145) Potassium Level 3.1 mmol/L (3.5-5.1) Chloride Level 106 mmol/L (98-107) Carbon Dioxide Level 30 mmol/L (21-32) Anion Gap 6 (6-14) Blood Urea Nitrogen 23 mg/dL (8-26) Creatinine 2.6 mg/dL (0.7-1.3) Estimated GFR (Cockcroft-Gault) 31.4 Glucose Level 201 mg/dL (70-99) Calcium Level 8.1 mg/dL (8.5-10.1) Test 06/27/17 11:25 Glucose (Fingerstick) 262 mg/dL (70-99) Laboratory Tests Test 06/26/17 12:24 06/26/17 13:50 06/26/17 17:31 06/26/17 20:54 Glucose (Fingerstick) 197 mg/dL (70-99) 159 mg/dL (70-99) 166 mg/dL (70-99) Sodium Level 140 mmol/L (136-145) Potassium Level 3.5 mmol/L (3.5-5.1) Chloride Level 105 mmol/L (98-107) Carbon Dioxide Level 30 mmol/L (21-32) Anion Gap 5 (6-14) Blood Urea Nitrogen 22 mg/dL (8-26) Creatinine 2.7 mg/dL (0.7-1.3) Estimated GFR (Cockcroft-Gault) 30.1 Glucose Level 213 mg/dL (70-99) Calcium Level 8.6 mg/dL (8.5-10.1) Magnesium Level 1.6 mg/dL (1.8-2.4) Test 06/27/17 04:00 06/27/17 07:50 06/27/17 11:25 White Blood Count 7.0 x10^3/uL (4.0-11.0) Red Blood Count 3.26 x10^6/uL (4.30-5.70) Hemoglobin 8.8 g/dL (13.0-17.5) Hematocrit 26.4 % (39.0-53.0) Mean Corpuscular Volume 81 fL (79-100) Mean Corpuscular Hemoglobin 27 pg (25-35) Mean Corpuscular Hemoglobin Concent 33 g/dL (31-37) Red Cell Distribution Width 18.5 % (11.5-14.5) Platelet Count 179 x10^3/uL (140-400) Neutrophils (%) (Auto) 71 % (31-73) Lymphocytes (%) (Auto) 13 % (24-48) Monocytes (%) (Auto) 9 % (0-9) Eosinophils (%) (Auto) 6 % (0-3) Basophils (%) (Auto) 1 % (0-3) Neutrophils # (Auto) 5.0 x10^3uL (1.8-7.7) Lymphocytes # (Auto) 0.9 x10^3/uL (1.0-4.8) Monocytes # (Auto) 0.6 x10^3/uL (0.0-1.1) Eosinophils # (Auto) 0.4 x10^3/uL (0.0-0.7) Basophils # (Auto) 0.1 x10^3/uL (0.0-0.2) Sodium Level 142 mmol/L (136-145) Potassium Level 3.1 mmol/L (3.5-5.1) Chloride Level 106 mmol/L (98-107) Carbon Dioxide Level 30 mmol/L (21-32) Anion Gap 6 (6-14) Blood Urea Nitrogen 23 mg/dL (8-26) Creatinine 2.6 mg/dL (0.7-1.3) Estimated GFR (Cockcroft-Gault) 31.4 Glucose Level 201 mg/dL (70-99) Calcium Level 8.1 mg/dL (8.5-10.1) Glucose (Fingerstick) 175 mg/dL (70-99) 262 mg/dL (70-99) Microbiology 06/25/17 Blood Culture - Preliminary, Resulted NO GROWTH AFTER 2 DAYS Medications Current Medications Sodium Chloride 1,000 ml @ 1,000 mls/hr 1X ONCE IV Last administered on 06/25 08:56; Start 06/25/17 at 08:45; Stop 06/25/17 at 09:44; Status DC Nitroglycerin/ Dextrose 250 ml @ As Directed STK-MED ONCE IV ; Start 06/25/17 at 08:54; Stop 06/25/17 at 08:55; Status DC Nitroglycerin/ Dextrose 250 ml @ 0 mls/hr 1X ONCE IV Last administered on 09:04; Start 06/25/17 at 09:30; Stop 06/25/17 at 09:31; Status DC Furosemide (Lasix) 40 mg 1X ONCE IVP Last administered on 06/25/17 09:35; Start 06/25/17 at 09:30; Stop 06/25/17 at 09:31; Status DC Labetalol HCl (Normodyne) 20 mg 1X ONCE IVP Last administered on 06/25/17 09 :36; Start 06/25/17 at 09:30; Stop 06/25/17 at 09:31; Status DC Aspirin (Berny Aspirin) 325 mg 1X ONCE PO Last administered on 06/25/17 09: 40; Start 06/25/17 at 09:45; Stop 06/25/17 at 09:46; Status DC Metoprolol Tartrate (Lopressor) 25 mg BID PO Last administered on 06/25/17 20 :51; Start 06/25/17 at 11:00; Stop 06/26/17 at 08:25; Status DC Furosemide (Lasix) 40 mg [id number] IVP Last administered on 06/27/17 08:18; Start 06/25/17 at 11:00 Labetalol HCl (Normodyne) 20 mg PRN Q2HRS PRN IVP ELEVATED BP, SEE COMMENTS Last administered on 06/27/17 03:52; Start 06/25/17 at 10:45 Aspirin (Ecotrin) 81 mg DAILYWBKFT PO Last administered on 06/27/17 08:26; Start 06/26/17 at 08:00 Atorvastatin Calcium (Lipitor) 40 mg QHS PO ; Start 06/25/17 at 21:00; Stop at 08:01; Status DC Amlodipine Besylate (Norvasc) 10 mg DAILY PO Last administered on 06/27/17 08 :20; Start 06/25/17 at 12:30 Nicardipine HCl 50 mg/Sodium Chloride 270 ml @ 0 mls/hr CONT PRN IV SEE I/O RECORD Last administered on 06/26/17 05:49; Start 06/25/17 at 12:30; Stop at 11:45; Status DC Info (Do NOT chart on this placeholder) 1 each 1X ONCE MC ; Start 06/25/17 at 13:30; Stop 06/25/17 at 13:31; Status UNV Influenza Virus Vaccine Quadrival (Fluarix Quad [id number] Syringe) 0.5 ml ONCE ONCE VAX IM ; Start 06/26/17 at 09:00; Stop 06/26/17 at 09:01; Status DC Amlodipine Besylate (Norvasc) 10 mg DAILY PO ; Start 06/25/17 at 17:00; Stop 06/26/17 at 08:01; Status DC Clonidine HCl (Catapres) 0.1 mg BID PO Last administered on 06/25/17 20:52; Start 06/25/17 at 21:00; Stop 06/26/17 at 08:25; Status DC Hydralazine HCl (Apresoline) 25 mg TID PO Last administered on 06/25/17 20:52 ; Start 06/25/17 at 16:00; Stop 06/26/17 at 08:25; Status DC Atorvastatin Calcium (Lipitor) 80 mg QHS PO Last administered on 06/26/17 19: 56; Start 06/25/17 at 21:00 Carvedilol (Coreg) 50 mg BIDWMEALS PO Last administered on 06/25/17 17:33; Start 06/25/17 at 17:00; Stop 06/26/17 at 08:25; Status DC Gabapentin (Neurontin) 800 mg TID PO Last administered on 06/27/17 08:18; Start 06/25/17 at 16:15 Insulin Aspart (NovoLOG) 0-7 UNITS QIDACHS SQ Last administered on 06/27/17 08:35; Start 06/25/17 at 16:30 Dextrose (Dextrose 50%-Water Syringe) 12.5 gm PRN Q15MIN PRN IV SEE COMMENTS; Start 06/25/17 at 15:45 Carvedilol (Coreg) 25 mg BIDWMEALS PO Last administered on 06/27/17 08:19; Start 06/26/17 at 17:00 Clonidine HCl (Catapres) 0.1 mg PRN Q8HRS PRN PO ELEVATED BP, SEE COMMENTS Last administered on 06/27/17 00:34; Start 06/26/17 at 21:00 Hydralazine HCl (Apresoline) 50 mg TID PO Last administered on 06/26/17 13:39 ; Start 06/26/17 at 09:00; Stop 06/26/17 at 13:43; Status DC Isosorbide Mononitrate (Imdur) 60 mg DAILY PO Last administered on 06/26/17 09:21; Start 06/26/17 at 09:00; Stop 06/26/17 at 13:43; Status DC Carvedilol (Coreg) 25 mg 1X ONCE PO Last administered on 06/26/17 13:39; Start 06/26/17 at 12:00; Stop 06/26/17 at 12:01; Status DC Hydralazine HCl (Apresoline) 100 mg TID PO Last administered on 06/27/17 08: 20; Start 06/26/17 at 14:00 Isosorbide Mononitrate (Imdur) 120 mg DAILY PO Last administered on 06/27/17 08:19; Start 06/27/17 at 09:00 Isosorbide Mononitrate (Imdur) 60 mg 1X ONCE PO ; Start 06/26/17 at 14:00; Stop 06/26/17 at 14:01; Status DC Hydralazine HCl (Apresoline Inj) 10 mg 1X ONCE IVP ; Start 06/26/17 at 13:45; Stop 06/26/17 at 13:47; Status DC Magnesium Sulfate/ Dextrose 50 ml @ 25 mls/hr 1X ONCE IV Last administered on 06/26/17 15:25; Start 06/26/17 at 15:00; Stop 06/26/17 at 16:59; Status DC Nicotine (Nicoderm Cq 14mg) 1 patch DAILY TD Last administered on 06/27/17 08 :19; Start 06/26/17 at 19:15 Nicardipine HCl 50 mg/Sodium Chloride 270 ml @ 0 mls/hr CONT PRN IV SEE I/O RECORD Last administered on 06/27/17 06:15; Start 06/27/17 at 06:15 Potassium Chloride (Klor-Con) 40 meq 1X ONCE PO Last administered on 08:18; Start 06/27/17 at 07:30; Stop 06/27/17 at 07:39; Status DC Magnesium Chloride (Mag Delay) 64 mg 1X ONCE PO Last administered on 08:19; Start 06/27/17 at 07:30; Stop 06/27/17 at 07:39; Status DC Acetaminophen (Tylenol) 650 mg PRN Q6HRS PRN PO MILD PAIN / TEMP Last administered on 06/27/17 09:45; Start 06/27/17 at 09:45 Clonidine HCl (Catapres) 0.2 mg Q8HRS PO Last administered on 06/27/17 11:28 ; Start 06/27/17 at 11:30 Active Scripts Active Reported Metformin Hcl Er (Metformin Hcl) 1,000 Mg Tab.er.24 1,000 Mg PO DAILYWBKFT Hydralazine Hcl 25 Mg Tablet 1 Tab PO TID Clonidine Hcl 0.1 Mg Tablet 1 Tab PO BID Carvedilol 25 Mg Tablet 2 Tab PO BID Atorvastatin Calcium 80 Mg Tablet 1 Tab PO DAILY Amlodipine Besylate 10 Mg Tablet 10 Mg PO DAILY Gabapentin 800 Mg Tablet 800 Mg PO TID Glimepiride 4 Mg Tablet 1 Tab PO BID Vitals/I & O Vital Sign - Last 24 Hours 06/26/17 06/26/17 06/26/17 06/26/17 12:00 12:00 12:30 12:45 Temp 98.8 98.8 Pulse 92 96 100 Resp 27 20 28 B/P (MAP) 173/88 (116) 175/92 (119) 107/73 (84) Pulse Ox 94 96 94 O2 Delivery Room Air Room Air Room Air Room Air 06/26/17 06/26/17 06/26/17 06/26/17 13:00 13:15 13:30 13:39 Pulse 94 92 94 104 Resp 30 31 29 B/P (MAP) 146/80 (102) 154/92 (112) 160/95 (116) 160/95 Pulse Ox 97 97 97 O2 Delivery Room Air Room Air Room Air 06/26/17 06/26/17 06/26/17 06/26/17 13:39 13:45 14:00 14:30 Pulse 102 96 98 92 Resp 27 26 30 B/P (MAP) 160/95 160/94 (116) 169/97 (121) 163/87 (112) Pulse Ox 97 97 94 O2 Delivery Room Air Room Air Room Air 06/26/17 06/26/17 06/26/17 06/26/17 15:00 15:30 16:00 16:00 Temp 98.9 98.9 Pulse 88 86 86 Resp 32 31 27 B/P (MAP) 149/86 (107) 147/93 (111) 133/79 (97) Pulse Ox 96 94 97 O2 Delivery Room Air Room Air Room Air Room Air 06/26/17 06/26/17 06/26/17 06/26/17 16:30 17:00 17:30 17:31 Pulse 86 88 88 91 Resp 29 32 27 B/P (MAP) 148/93 (111) 153/94 (113) 168/99 (122) 168/99 Pulse Ox 96 97 97 O2 Delivery Room Air Room Air Room Air 06/26/17 06/26/17 06/26/17 06/26/17 18:00 19:00 19:57 20:00 Pulse 90 90 85 Resp 27 28 B/P (MAP) 156/90 (112) 163/94 (117) 164/77 Pulse Ox 96 96 O2 Delivery Room Air Room Air Room Air 06/26/17 06/26/17 06/26/17 06/26/17 20:00 21:00 22:00 23:00 Temp 98.6 98.6 Pulse 84 92 94 95 Resp 28 33 27 32 B/P (MAP) 164/77 (106) 161/96 (117) 150/81 (104) 174/91 (118) Pulse Ox 96 99 95 95 O2 Delivery Room Air Room Air Room Air Room Air 06/26/17 06/26/17 06/27/17 06/27/17 23:16 23:59 00:01 00:34 Temp 98.9 98.9 Pulse 89 84 87 Resp 26 B/P (MAP) 181/93 158/85 (109) 171/110 Pulse Ox 96 O2 Delivery Room Air Room Air 06/27/17 06/27/17 06/27/17 06/27/17 01:00 02:00 03:00 03:52 Pulse 88 84 91 96 Resp 35 32 25 B/P (MAP) 158/83 (108) 161/91 (114) 173/93 (119) 181/97 Pulse Ox 95 95 95 O2 Delivery Room Air Room Air Room Air 06/27/17 06/27/17 06/27/17 06/27/17 04:00 04:00 05:00 05:30 Temp 98.9 98.9 Pulse 87 86 92 Resp 26 30 30 B/P (MAP) 172/87 (115) 156/90 (112) 198/97 (130) Pulse Ox 97 95 95 O2 Delivery Room Air Room Air Room Air Room Air 06/27/17 06/27/17 06/27/17 06/27/17 06:00 06:30 07:59 08:00 Pulse 94 93 93 Resp 30 28 24 B/P (MAP) 198/101 (133) 183/100 (127) 147/84 (105) Pulse Ox 95 96 O2 Delivery Room Air Room Air Room Air Room Air 06/27/17 06/27/17 06/27/17 06/27/17 08:19 08:19 08:20 08:20 Pulse 96 93 94 95 B/P (MAP) 175/77 175/77 175/77 175/77 06/27/17 06/27/17 06/27/17 06/27/17 09:00 10:20 11:00 11:28 Temp 99.3 99.3 Pulse 94 90 90 88 Resp 30 18 22 B/P (MAP) 143/80 (101) 144/72 (96) 139/75 (96) 139/75 Pulse Ox 98 99 O2 Delivery Room Air Room Air Room Air Intake and Output 06/27/17 06/27/17 06/28/17 15:00 23:00 07:00 Intake Total 340 ml Output Total 300 ml Balance 40 ml MARK SALDANA III DO Jun 27, 2017 11:38
--- NOTE | 2017-06-27 12:47 | PDOC ---
CARDIO Progress Notes Date and Time Date of Service 06/27/2017 Time of Evaluation 1220 Subjective Subjective: No Chest Pain, No shortness of breath, No Palpitations Vitals Vitals Vital Signs Date Time Temp Pulse Resp B/P (MAP) Pulse Ox O2 Delivery O2 Flow Rate FiO2 06/27/17 12:15 Room Air 06/27/17 12:00 98.3 87 20 131/76 (94) 99 98.3 Weight Weight [ ] Input and Output Intake and Output Intake and Output 06/28/17 07:00 Intake Total 520 ml Output Total 300 ml Balance 220 ml Intake Oral 520 ml Output Urine Total 300 ml Laboratory Labs Laboratory Tests Test 06/26/17 13:50 06/26/17 17:31 06/26/17 20:54 06/27/17 04:00 Sodium Level 140 mmol/L (136-145) 142 mmol/L (136-145) Potassium Level 3.5 mmol/L (3.5-5.1) 3.1 mmol/L (3.5-5.1) Chloride Level 105 mmol/L (98-107) 106 mmol/L (98-107) Carbon Dioxide Level 30 mmol/L (21-32) 30 mmol/L (21-32) Anion Gap 5 (6-14) 6 (6-14) Blood Urea Nitrogen 22 mg/dL (8-26) 23 mg/dL (8-26) Creatinine 2.7 mg/dL (0.7-1.3) 2.6 mg/dL (0.7-1.3) Estimated GFR (Cockcroft-Gault) 30.1 31.4 Glucose Level 213 mg/dL (70-99) 201 mg/dL (70-99) Calcium Level 8.6 mg/dL (8.5-10.1) 8.1 mg/dL (8.5-10.1) Magnesium Level 1.6 mg/dL (1.8-2.4) Glucose (Fingerstick) 159 mg/dL (70-99) 166 mg/dL (70-99) White Blood Count 7.0 x10^3/uL (4.0-11.0) Red Blood Count 3.26 x10^6/uL (4.30-5.70) Hemoglobin 8.8 g/dL (13.0-17.5) Hematocrit 26.4 % (39.0-53.0) Mean Corpuscular Volume 81 fL (79-100) Mean Corpuscular Hemoglobin 27 pg (25-35) Mean Corpuscular Hemoglobin Concent 33 g/dL (31-37) Red Cell Distribution Width 18.5 % (11.5-14.5) Platelet Count 179 x10^3/uL (140-400) Neutrophils (%) (Auto) 71 % (31-73) Lymphocytes (%) (Auto) 13 % (24-48) Monocytes (%) (Auto) 9 % (0-9) Eosinophils (%) (Auto) 6 % (0-3) Basophils (%) (Auto) 1 % (0-3) Neutrophils # (Auto) 5.0 x10^3uL (1.8-7.7) Lymphocytes # (Auto) 0.9 x10^3/uL (1.0-4.8) Monocytes # (Auto) 0.6 x10^3/uL (0.0-1.1) Eosinophils # (Auto) 0.4 x10^3/uL (0.0-0.7) Basophils # (Auto) 0.1 x10^3/uL (0.0-0.2) Test 06/27/17 07:50 06/27/17 11:25 Glucose (Fingerstick) 175 mg/dL (70-99) 262 mg/dL (70-99) Microbiology Micro Microbiology 06/25/17 Blood Culture - Preliminary, Resulted NO GROWTH AFTER 2 DAYS Review of Systems Constitutional: yes: weakness, alert, oriented Ears/Nose/Throat: Yes: no symptom reported Eyes: Yes: no symptom reported Pulmonary: Yes no symptom reported Cardiovascular: Yes chest pain Gastrointestional: Yes: no symptom reported Genitourinary: Yes: no symptom reported Musculoskeletal: Yes: muscle stiffness Skin: Yes no symptom reported Psychiatric/Neurological: Yes: no symptom reported Endocrine: Yes: no symptom reported Physical Exam HEENT: Neck Supple W Full Motion Chest: Symmetric LUNGS: Clear to Auscultation Heart: S1S2, RRR (SR) Abdomen: Soft N/T Extremities: No Calf Tenderness, Other (trace to 1+ LE edema) Neurology: alert, oriented, follow commands Assessment Assessment 1. Malignant HTN: better. renal duplex neg for stenosis 2. Noncompliance: was skipping meds at home and failed cardiology f/u 3. Acute on chronic diastolic: compensated. 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 Elevated troponin: peaked at 0.12, demand mediated with above culprits. TTE with normal EF and wall motion with borderline LVH 6. CAD: recent CABG x3 on 11/2016. Stable. 7. DM2/HLP 8. Substance abuse: marijuana and heroin 9. Recent hx of syncope Recommendations 1. Off cardene. Maximized meds with coreg, hydralazine/imdur/norvasc. Change lasix to PO. Routine clonidine now in place. 2. Could place on ARB but would defer to nephrology. 3. Again Reinforced adherence to regimen and abstinence. 4. Still with no CABG records. CXR. Continue with secondary prevention. 5. Lifestyle modification with DASH diet and voidance of recreational drugs. KAROLINE REILLY [employer]TER[employer] INSPECTOR Jun 27, 2017 12:47
[2017-06-27] MEDS: FUROSEMIDE 40 MG TABLET. PO SCH (14:14)
--- NOTE | 2017-06-27 15:52 | RAD ---
Portable chest, 06/27/2017: History: Congestive heart failure Comparison is made to yesterday's study. The heart appears to be within normal limits in size. The pulmonary vascularity is normal. There is mild parenchymal scarring. There is a moderate size bulla in the right upper chest. No new pulmonary abnormality is seen. There is unchanged blunting of the lateral costophrenic and vertebral phrenic angles suggesting a small amount of pleural fluid. IMPRESSION: No significant change since yesterday's study.
[2017-06-27] MEDS: ATORVASTATIN CALCIUM 40 MG TABLET. PO SCH (20:55)
[2017-06-28] VITALS (14 sets, daily range): BP systolic 114–177; BP diastolic 77–101
[2017-06-28] MEDS: cloNIDine HCL 0.2 MG TABLET PO SCH ×3 (05:29→23:25)
[2017-06-28 05:40] LABS: BASO % 1 % (0-3); EOS % 6 % (0-3); HEMATOCRIT 26.3 % (39.0-53.0); HEMOGLOBIN 8.7 g/dL (13.0-17.5); LYMPH % 16 % (24-48); MEAN CORPUSCULAR HEMOGLOBIN 27 pg (25-35); MEAN CORPUSCULAR HGB CONC 33 g/dL (31-37); MEAN CORPUSCULAR VOLUME 81 fL (79-100); MONO % 11 % (0-9); NEUT % 67 % (31-73); PLATELET COUNT 193 x10^3/uL (140-400); RED BLOOD COUNT 3.24 x10^6/uL (4.30-5.70); RED CELL DISTRIBUTION WIDTH 18.6 % (11.5-14.5); WHITE BLOOD COUNT 6.6 x10^3/uL (4.0-11.0)
[2017-06-28 06:13] LABS: CALCIUM 8.3 mg/dL (8.5-10.1); CREATININE 2.6 mg/dL (0.7-1.3); GFR 31.4; POTASSIUM 3.1 mmol/L (3.5-5.1)
[2017-06-28] MEDS ORDERED: POTASSIUM CHLORIDE 20 MEQ TABLET.ER. PO ONE (08:30)
[2017-06-28] MEDS: ASPIRIN ENTERIC COATED 81 MG TABLET.DR. PO SCH (08:40)
[2017-06-28] MEDS: amLODIPine BESYLATE 10 MG TABLET PO SCH (08:40)
[2017-06-28] MEDS: GABAPENTIN 400 MG CAPSULE. PO SCH ×3 (08:42→21:04)
[2017-06-28] MEDS: ISOSORBIDE MONONITRATE ER 30 MG TAB.ER.24H PO SCH (08:42)
[2017-06-28] MEDS: CARVEDILOL 12.5 MG TABLET. PO SCH ×2 (08:43→18:00)
[2017-06-28] MEDS: FUROSEMIDE 40 MG TABLET. PO SCH ×2 (08:44→14:58)
[2017-06-28] MEDS: hydrALAZINE 25 MG TABLET PO SCH (08:44)
[2017-06-28] MEDS: INSULIN ASPART 300 UNITS/3 ML INSULN.PEN SQ SCH ×4 (08:52→21:00)
[2017-06-28] MEDS: NICOTINE 14MG PATCH. TD SCH (09:41)
--- NOTE | 2017-06-28 11:39 | PDOC ---
PROGRESS NOTES Chief Complaint Chief Complaint Chest pain malignant HTN PMH: CAD HTN Syncope hyperlipidemia GERD Anemia CRI DM Smoker substance abuse noncompliant with BP meds History of Present Illness History of Present Illness Pt in the ICU. He was laying in bed with the covers on. He was conversant and appeared to be in NAD. He has no complaints of chest pain, N/V, or diarrhea. He would like to know when he can finally go home. Pt is off the cardene drip. He is receiving oral BP meds now. (clonidine) Present plan is to optimize his BP while he is here. Potassium has been persistently low. Ordered K. Script written for potassium when he is D/C. Stressed importance of compliance with home BP medications. Discussed plan of care with him as well as RN. Vitals Vitals Vital Signs Date Time Temp Pulse Resp B/P (MAP) Pulse Ox O2 Delivery O2 Flow Rate FiO2 06/28/17 09:41 80 177/93 06/28/17 09:00 20 96 06/28/17 08:00 Room Air 06/28/17 07:00 98.1 98.1 Physical Exam General: Alert, Oriented X3, Cooperative, No acute distress Heart: Normal S1, Normal S2, No murmurs, Other (tachy) Lungs: Clear Abdomen: Normal bowel sounds, Soft Extremities: No clubbing, No cyanosis Skin: No rashes, No breakdown, No significant lesion Labs LABS Laboratory Tests Test 06/27/17 17:01 06/27/17 20:54 06/28/17 03:30 06/28/17 08:16 Glucose (Fingerstick) 113 mg/dL (70-99) 175 mg/dL (70-99) 179 mg/dL (70-99) White Blood Count 6.6 x10^3/uL (4.0-11.0) Red Blood Count 3.24 x10^6/uL (4.30-5.70) Hemoglobin 8.7 g/dL (13.0-17.5) Hematocrit 26.3 % (39.0-53.0) Mean Corpuscular Volume 81 fL (79-100) Mean Corpuscular Hemoglobin 27 pg (25-35) Mean Corpuscular Hemoglobin Concent 33 g/dL (31-37) Red Cell Distribution Width 18.6 % (11.5-14.5) Platelet Count 193 x10^3/uL (140-400) Neutrophils (%) (Auto) 67 % (31-73) Lymphocytes (%) (Auto) 16 % (24-48) Monocytes (%) (Auto) 11 % (0-9) Eosinophils (%) (Auto) 6 % (0-3) Basophils (%) (Auto) 1 % (0-3) Neutrophils # (Auto) 4.4 x10^3uL (1.8-7.7) Lymphocytes # (Auto) 1.0 x10^3/uL (1.0-4.8) Monocytes # (Auto) 0.7 x10^3/uL (0.0-1.1) Eosinophils # (Auto) 0.4 x10^3/uL (0.0-0.7) Basophils # (Auto) 0.0 x10^3/uL (0.0-0.2) Sodium Level 141 mmol/L (136-145) Potassium Level 3.1 mmol/L (3.5-5.1) Chloride Level 106 mmol/L (98-107) Carbon Dioxide Level 27 mmol/L (21-32) Anion Gap 8 (6-14) Blood Urea Nitrogen 22 mg/dL (8-26) Creatinine 2.6 mg/dL (0.7-1.3) Estimated GFR (Cockcroft-Gault) 31.4 Glucose Level 264 mg/dL (70-99) Calcium Level 8.3 mg/dL (8.5-10.1) Test 06/28/17 11:23 Glucose (Fingerstick) 270 mg/dL (70-99) Review of Systems Review of Systems Pt complains of leg stiffness Pt fatigued Pt hungry Assessment and Plan Assessmemt and Plan Problems Medical Problems: (1) Malignant hypertension Status: Acute (2) Unstable angina Status: Acute Chest pain malignant HTN PMH: CAD HTN Syncope hyperlipidemia GERD Anemia CRI DM Smoker substance abuse noncompliant with BP meds Plan: cont. ICU monitoring Ordered potassium replace K as needed recheck labs attempt to keep BP meds PO PT/OT discussed with RN appreciate subspecialty input possible D/C if ok with subspecialists Problems: Comment Review of Relevant I have reviewed the following items nabil (where applicable) has been applied. Labs Laboratory Tests Test 06/26/17 12:24 06/26/17 13:50 06/26/17 17:31 06/26/17 20:54 Glucose (Fingerstick) 197 mg/dL (70-99) 159 mg/dL (70-99) 166 mg/dL (70-99) Sodium Level 140 mmol/L (136-145) Potassium Level 3.5 mmol/L (3.5-5.1) Chloride Level 105 mmol/L (98-107) Carbon Dioxide Level 30 mmol/L (21-32) Anion Gap 5 (6-14) Blood Urea Nitrogen 22 mg/dL (8-26) Creatinine 2.7 mg/dL (0.7-1.3) Estimated GFR (Cockcroft-Gault) 30.1 Glucose Level 213 mg/dL (70-99) Calcium Level 8.6 mg/dL (8.5-10.1) Magnesium Level 1.6 mg/dL (1.8-2.4) Test 06/27/17 04:00 06/27/17 07:50 06/27/17 11:25 06/27/17 17:01 White Blood Count 7.0 x10^3/uL (4.0-11.0) Red Blood Count 3.26 x10^6/uL (4.30-5.70) Hemoglobin 8.8 g/dL (13.0-17.5) Hematocrit 26.4 % (39.0-53.0) Mean Corpuscular Volume 81 fL (79-100) Mean Corpuscular Hemoglobin 27 pg (25-35) Mean Corpuscular Hemoglobin Concent 33 g/dL (31-37) Red Cell Distribution Width 18.5 % (11.5-14.5) Platelet Count 179 x10^3/uL (140-400) Neutrophils (%) (Auto) 71 % (31-73) Lymphocytes (%) (Auto) 13 % (24-48) Monocytes (%) (Auto) 9 % (0-9) Eosinophils (%) (Auto) 6 % (0-3) Basophils (%) (Auto) 1 % (0-3) Neutrophils # (Auto) 5.0 x10^3uL (1.8-7.7) Lymphocytes # (Auto) 0.9 x10^3/uL (1.0-4.8) Monocytes # (Auto) 0.6 x10^3/uL (0.0-1.1) Eosinophils # (Auto) 0.4 x10^3/uL (0.0-0.7) Basophils # (Auto) 0.1 x10^3/uL (0.0-0.2) Sodium Level 142 mmol/L (136-145) Potassium Level 3.1 mmol/L (3.5-5.1) Chloride Level 106 mmol/L (98-107) Carbon Dioxide Level 30 mmol/L (21-32) Anion Gap 6 (6-14) Blood Urea Nitrogen 23 mg/dL (8-26) Creatinine 2.6 mg/dL (0.7-1.3) Estimated GFR (Cockcroft-Gault) 31.4 Glucose Level 201 mg/dL (70-99) Calcium Level 8.1 mg/dL (8.5-10.1) Glucose (Fingerstick) 175 mg/dL (70-99) 262 mg/dL (70-99) 113 mg/dL (70-99) Test 06/27/17 20:54 06/28/17 03:30 06/28/17 08:16 06/28/17 11:23 Glucose (Fingerstick) 175 mg/dL (70-99) 179 mg/dL (70-99) 270 mg/dL (70-99) White Blood Count 6.6 x10^3/uL (4.0-11.0) Red Blood Count 3.24 x10^6/uL (4.30-5.70) Hemoglobin 8.7 g/dL (13.0-17.5) Hematocrit 26.3 % (39.0-53.0) Mean Corpuscular Volume 81 fL (79-100) Mean Corpuscular Hemoglobin 27 pg (25-35) Mean Corpuscular Hemoglobin Concent 33 g/dL (31-37) Red Cell Distribution Width 18.6 % (11.5-14.5) Platelet Count 193 x10^3/uL (140-400) Neutrophils (%) (Auto) 67 % (31-73) Lymphocytes (%) (Auto) 16 % (24-48) Monocytes (%) (Auto) 11 % (0-9) Eosinophils (%) (Auto) 6 % (0-3) Basophils (%) (Auto) 1 % (0-3) Neutrophils # (Auto) 4.4 x10^3uL (1.8-7.7) Lymphocytes # (Auto) 1.0 x10^3/uL (1.0-4.8) Monocytes # (Auto) 0.7 x10^3/uL (0.0-1.1) Eosinophils # (Auto) 0.4 x10^3/uL (0.0-0.7) Basophils # (Auto) 0.0 x10^3/uL (0.0-0.2) Sodium Level 141 mmol/L (136-145) Potassium Level 3.1 mmol/L (3.5-5.1) Chloride Level 106 mmol/L (98-107) Carbon Dioxide Level 27 mmol/L (21-32) Anion Gap 8 (6-14) Blood Urea Nitrogen 22 mg/dL (8-26) Creatinine 2.6 mg/dL (0.7-1.3) Estimated GFR (Cockcroft-Gault) 31.4 Glucose Level 264 mg/dL (70-99) Calcium Level 8.3 mg/dL (8.5-10.1) Laboratory Tests Test 06/27/17 17:01 06/27/17 20:54 06/28/17 03:30 06/28/17 08:16 Glucose (Fingerstick) 113 mg/dL (70-99) 175 mg/dL (70-99) 179 mg/dL (70-99) White Blood Count 6.6 x10^3/uL (4.0-11.0) Red Blood Count 3.24 x10^6/uL (4.30-5.70) Hemoglobin 8.7 g/dL (13.0-17.5) Hematocrit 26.3 % (39.0-53.0) Mean Corpuscular Volume 81 fL (79-100) Mean Corpuscular Hemoglobin 27 pg (25-35) Mean Corpuscular Hemoglobin Concent 33 g/dL (31-37) Red Cell Distribution Width 18.6 % (11.5-14.5) Platelet Count 193 x10^3/uL (140-400) Neutrophils (%) (Auto) 67 % (31-73) Lymphocytes (%) (Auto) 16 % (24-48) Monocytes (%) (Auto) 11 % (0-9) Eosinophils (%) (Auto) 6 % (0-3) Basophils (%) (Auto) 1 % (0-3) Neutrophils # (Auto) 4.4 x10^3uL (1.8-7.7) Lymphocytes # (Auto) 1.0 x10^3/uL (1.0-4.8) Monocytes # (Auto) 0.7 x10^3/uL (0.0-1.1) Eosinophils # (Auto) 0.4 x10^3/uL (0.0-0.7) Basophils # (Auto) 0.0 x10^3/uL (0.0-0.2) Sodium Level 141 mmol/L (136-145) Potassium Level 3.1 mmol/L (3.5-5.1) Chloride Level 106 mmol/L (98-107) Carbon Dioxide Level 27 mmol/L (21-32) Anion Gap 8 (6-14) Blood Urea Nitrogen 22 mg/dL (8-26) Creatinine 2.6 mg/dL (0.7-1.3) Estimated GFR (Cockcroft-Gault) 31.4 Glucose Level 264 mg/dL (70-99) Calcium Level 8.3 mg/dL (8.5-10.1) Test 06/28/17 11:23 Glucose (Fingerstick) 270 mg/dL (70-99) Microbiology 06/25/17 Blood Culture - Preliminary, Resulted NO GROWTH AFTER 3 DAYS Medications Current Medications Sodium Chloride 1,000 ml @ 1,000 mls/hr 1X ONCE IV Last administered on 06/25 08:56; Start 06/25/17 at 08:45; Stop 06/25/17 at 09:44; Status DC Nitroglycerin/ Dextrose 250 ml @ As Directed STK-MED ONCE IV ; Start 06/25/17 at 08:54; Stop 06/25/17 at 08:55; Status DC Nitroglycerin/ Dextrose 250 ml @ 0 mls/hr 1X ONCE IV Last administered on 09:04; Start 06/25/17 at 09:30; Stop 06/25/17 at 09:31; Status DC Furosemide (Lasix) 40 mg 1X ONCE IVP Last administered on 06/25/17 09:35; Start 06/25/17 at 09:30; Stop 06/25/17 at 09:31; Status DC Labetalol HCl (Normodyne) 20 mg 1X ONCE IVP Last administered on 06/25/17 09 :36; Start 06/25/17 at 09:30; Stop 06/25/17 at 09:31; Status DC Aspirin (Berny Aspirin) 325 mg 1X ONCE PO Last administered on 06/25/17 09: 40; Start 06/25/17 at 09:45; Stop 06/25/17 at 09:46; Status DC Metoprolol Tartrate (Lopressor) 25 mg BID PO Last administered on 06/25/17 20 :51; Start 06/25/17 at 11:00; Stop 06/26/17 at 08:25; Status DC Furosemide (Lasix) 40 mg [id number] IVP Last administered on 06/27/17 08:18; Start 06/25/17 at 11:00; Stop 06/27/17 at 12:42; Status DC Labetalol HCl (Normodyne) 20 mg PRN Q2HRS PRN IVP ELEVATED BP, SEE COMMENTS Last administered on 06/27/17 03:52; Start 06/25/17 at 10:45 Aspirin (Ecotrin) 81 mg DAILYWBKFT PO Last administered on 06/28/17 08:40; Start 06/26/17 at 08:00 Atorvastatin Calcium (Lipitor) 40 mg QHS PO ; Start 06/25/17 at 21:00; Stop at 08:01; Status DC Amlodipine Besylate (Norvasc) 10 mg DAILY PO Last administered on 06/28/17 08 :40; Start 06/25/17 at 12:30 Nicardipine HCl 50 mg/Sodium Chloride 270 ml @ 0 mls/hr CONT PRN IV SEE I/O RECORD Last administered on 06/26/17 05:49; Start 06/25/17 at 12:30; Stop at 11:45; Status DC Info (Do NOT chart on this placeholder) 1 each 1X ONCE MC ; Start 06/25/17 at 13:30; Stop 06/25/17 at 13:31; Status UNV Influenza Virus Vaccine Quadrival (Fluarix Quad [id number] Syringe) 0.5 ml ONCE ONCE VAX IM ; Start 06/26/17 at 09:00; Stop 06/26/17 at 09:01; Status DC Amlodipine Besylate (Norvasc) 10 mg DAILY PO ; Start 06/25/17 at 17:00; Stop 06/26/17 at 08:01; Status DC Clonidine HCl (Catapres) 0.1 mg BID PO Last administered on 06/25/17 20:52; Start 06/25/17 at 21:00; Stop 06/26/17 at 08:25; Status DC Hydralazine HCl (Apresoline) 25 mg TID PO Last administered on 06/25/17 20:52 ; Start 06/25/17 at 16:00; Stop 06/26/17 at 08:25; Status DC Atorvastatin Calcium (Lipitor) 80 mg QHS PO Last administered on 06/27/17 20: 55; Start 06/25/17 at 21:00 Carvedilol (Coreg) 50 mg BIDWMEALS PO Last administered on 06/25/17 17:33; Start 06/25/17 at 17:00; Stop 06/26/17 at 08:25; Status DC Gabapentin (Neurontin) 800 mg TID PO Last administered on 06/28/17 08:42; Start 06/25/17 at 16:15 Insulin Aspart (NovoLOG) 0-7 UNITS QIDACHS SQ Last administered on 06/28/17 08:52; Start 06/25/17 at 16:30 Dextrose (Dextrose 50%-Water Syringe) 12.5 gm PRN Q15MIN PRN IV SEE COMMENTS; Start 06/25/17 at 15:45 Carvedilol (Coreg) 25 mg BIDWMEALS PO Last administered on 06/28/17 08:43; Start 06/26/17 at 17:00 Clonidine HCl (Catapres) 0.1 mg PRN Q8HRS PRN PO ELEVATED BP, SEE COMMENTS Last administered on 06/27/17 00:34; Start 06/26/17 at 21:00 Hydralazine HCl (Apresoline) 50 mg TID PO Last administered on 06/26/17 13:39 ; Start 06/26/17 at 09:00; Stop 06/26/17 at 13:43; Status DC Isosorbide Mononitrate (Imdur) 60 mg DAILY PO Last administered on 06/26/17 09:21; Start 06/26/17 at 09:00; Stop 06/26/17 at 13:43; Status DC Carvedilol (Coreg) 25 mg 1X ONCE PO Last administered on 06/26/17 13:39; Start 06/26/17 at 12:00; Stop 06/26/17 at 12:01; Status DC Hydralazine HCl (Apresoline) 100 mg TID PO Last administered on 06/28/17 08: 44; Start 06/26/17 at 14:00; Stop 06/28/17 at 08:50; Status DC Isosorbide Mononitrate (Imdur) 120 mg DAILY PO Last administered on 06/28/17 08:42; Start 06/27/17 at 09:00 Isosorbide Mononitrate (Imdur) 60 mg 1X ONCE PO ; Start 06/26/17 at 14:00; Stop 06/26/17 at 14:01; Status DC Hydralazine HCl (Apresoline Inj) 10 mg 1X ONCE IVP ; Start 06/26/17 at 13:45; Stop 06/26/17 at 13:47; Status DC Magnesium Sulfate/ Dextrose 50 ml @ 25 mls/hr 1X ONCE IV Last administered on 06/26/17 15:25; Start 06/26/17 at 15:00; Stop 06/26/17 at 16:59; Status DC Nicotine (Nicoderm Cq 14mg) 1 patch DAILY TD Last administered on 06/28/17 09 :41; Start 06/26/17 at 19:15 Nicardipine HCl 50 mg/Sodium Chloride 270 ml @ 0 mls/hr CONT PRN IV SEE I/O RECORD Last administered on 06/27/17 06:15; Start 06/27/17 at 06:15 Potassium Chloride (Klor-Con) 40 meq 1X ONCE PO Last administered on 08:18; Start 06/27/17 at 07:30; Stop 06/27/17 at 07:39; Status DC Magnesium Chloride (Mag Delay) 64 mg 1X ONCE PO Last administered on 08:19; Start 06/27/17 at 07:30; Stop 06/27/17 at 07:39; Status DC Acetaminophen (Tylenol) 650 mg PRN Q6HRS PRN PO MILD PAIN / TEMP Last administered on 06/27/17 09:45; Start 06/27/17 at 09:45 Clonidine HCl (Catapres) 0.2 mg Q8HRS PO Last administered on 06/28/17 05:29 ; Start 06/27/17 at 11:30 Furosemide (Lasix) 40 mg BID92 PO Last administered on 06/28/17 08:44; Start 06/27/17 at 14:00 Potassium Chloride (Klor-Con) 40 meq 1X ONCE PO Last administered on 08:39; Start 06/28/17 at 08:30; Stop 06/28/17 at 08:31; Status DC Hydralazine HCl (Apresoline) 100 mg TID PO Last administered on 06/28/17 09: 41; Start 06/28/17 at 09:00 Active Scripts Active Reported Metformin Hcl Er (Metformin Hcl) 1,000 Mg Tab.er.24 1,000 Mg PO DAILYWBKFT Hydralazine Hcl 25 Mg Tablet 1 Tab PO TID Clonidine Hcl 0.1 Mg Tablet 1 Tab PO BID Carvedilol 25 Mg Tablet 2 Tab PO BID Atorvastatin Calcium 80 Mg Tablet 1 Tab PO DAILY Amlodipine Besylate 10 Mg Tablet 10 Mg PO DAILY Gabapentin 800 Mg Tablet 800 Mg PO TID Glimepiride 4 Mg Tablet 1 Tab PO BID Vitals/I & O Vital Sign - Last 24 Hours 06/27/17 06/27/17 06/27/17 06/27/17 12:00 12:15 13:00 14:00 Temp 98.3 98.3 Pulse 87 84 85 Resp 20 22 22 B/P (MAP) 131/76 (94) 134/70 (91) 124/69 (87) Pulse Ox 99 98 98 O2 Delivery Room Air Room Air Room Air Room Air 06/27/17 06/27/17 06/27/17 06/27/17 14:14 15:00 16:00 16:00 Pulse 78 87 90 Resp 22 20 B/P (MAP) 124/69 154/81 (105) 145/80 (101) Pulse Ox 98 99 O2 Delivery Room Air Room Air Room Air 06/27/17 06/27/17 06/27/17 06/27/17 17:05 17:06 18:00 19:00 Pulse 80 82 75 89 Resp 20 24 16 B/P (MAP) 160/91 160/91 (114) 138/86 (103) 145/80 (101) Pulse Ox 98 98 98 O2 Delivery Room Air Room Air Room Air 06/27/17 06/27/17 06/27/17 06/27/17 20:00 20:00 20:17 20:56 Temp 97.8 97.8 Pulse 84 90 90 Resp 20 20 B/P (MAP) 154/82 (106) 145/80 (101) 154/82 Pulse Ox 98 99 O2 Delivery Room Air Room Air Room Air 06/27/17 06/27/17 06/27/17 06/27/17 21:00 21:00 22:00 23:00 Pulse 90 86 84 84 Resp 20 16 16 B/P (MAP) 154/82 164/86 (112) 136/83 (100) 136/83 (100) Pulse Ox 99 99 99 O2 Delivery Room Air Room Air Room Air 06/27/17 06/28/17 06/28/17 06/28/17 23:59 00:00 01:00 02:00 Temp 98.8 98.8 Pulse 84 85 82 Resp 16 16 16 B/P (MAP) 114/89 (97) 139/84 (102) 140/77 (98) Pulse Ox 93 99 98 O2 Delivery Room Air Room Air Room Air Room Air 06/28/17 06/28/17 06/28/17 06/28/17 03:00 04:00 04:00 05:00 Temp 98.0 98.0 Pulse 82 81 83 Resp 24 12 14 B/P (MAP) 148/81 (103) 159/98 (118) 152/99 (116) Pulse Ox 98 98 99 O2 Delivery Room Air Room Air Room Air Room Air 06/28/17 06/28/17 06/28/17 06/28/17 05:29 06:00 07:00 08:00 Temp 98.1 98.1 Pulse 83 86 79 Resp 14 20 B/P (MAP) 152/99 141/101 (114) 149/97 (114) Pulse Ox 98 98 O2 Delivery Room Air Room Air Room Air 06/28/17 06/28/17 06/28/17 06/28/17 08:00 08:40 08:42 08:43 Pulse 80 78 77 77 Resp 20 B/P (MAP) 177/93 (121) 149/97 149/97 149/97 Pulse Ox 98 O2 Delivery Room Air 06/28/17 06/28/17 06/28/17 08:44 09:00 09:41 Pulse 77 78 80 Resp 20 B/P (MAP) 149/97 165/90 (115) 177/93 Pulse Ox 96 Intake and Output 06/28/17 06/28/17 06/29/17 15:00 23:00 07:00 Intake Total 600 ml Output Total 500 ml Balance 100 ml MARK SALDANA K III DO Jun 28, 2017 11:39
--- NOTE | 2017-06-28 12:04 | PDOC ---
PROGRESS NOTES Subjective Subjective The patient looks better today. Objective Objective Vital Signs Date Time Temp Pulse Resp B/P (MAP) Pulse Ox O2 Delivery O2 Flow Rate FiO2 06/28/17 09:41 80 177/93 06/28/17 09:00 20 96 06/28/17 08:00 Room Air 06/28/17 07:00 98.1 98.1 Intake and Output 06/29/17 07:00 Intake Total 600 ml Output Total 500 ml Balance 100 ml Intake Oral 600 ml Output Urine Total 500 ml Physical Exam Abdomen: Normal bowel sounds Heart: Regular rate General: No acute distress Lungs: Clear to auscultation Assessment Assessment Problems Medical Problems: (1) Malignant hypertension Status: Acute (2) Unstable angina Status: Acute Assessment 1. Malignant HTN: better. renal duplex neg for stenosis. BP improved. Increase activities. Oral medications. May move out of the ICU from a cardiac viewpoint. 2. Noncompliance: was skipping meds at home and failed cardiology f/u 3. Acute on chronic diastolic: compensated. 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 Elevated troponin: peaked at 0.12, demand mediated with above culprits. TTE with normal EF and wall motion with borderline LVH. Continue medical treatment. 6. CAD: recent CABG x3 on 11/2016. Stable. 7. DM2/HLP 8. Substance abuse: marijuana and heroin 9. Recent hx of syncope Comment Review of Relevant I have reviewed the following items nabil (where applicable) has been applied. Labs Laboratory Tests Test 06/26/17 12:24 06/26/17 13:50 06/26/17 17:31 06/26/17 20:54 Glucose (Fingerstick) 197 mg/dL (70-99) 159 mg/dL (70-99) 166 mg/dL (70-99) Sodium Level 140 mmol/L (136-145) Potassium Level 3.5 mmol/L (3.5-5.1) Chloride Level 105 mmol/L (98-107) Carbon Dioxide Level 30 mmol/L (21-32) Anion Gap 5 (6-14) Blood Urea Nitrogen 22 mg/dL (8-26) Creatinine 2.7 mg/dL (0.7-1.3) Estimated GFR (Cockcroft-Gault) 30.1 Glucose Level 213 mg/dL (70-99) Calcium Level 8.6 mg/dL (8.5-10.1) Magnesium Level 1.6 mg/dL (1.8-2.4) Test 06/27/17 04:00 06/27/17 07:50 06/27/17 11:25 06/27/17 17:01 White Blood Count 7.0 x10^3/uL (4.0-11.0) Red Blood Count 3.26 x10^6/uL (4.30-5.70) Hemoglobin 8.8 g/dL (13.0-17.5) Hematocrit 26.4 % (39.0-53.0) Mean Corpuscular Volume 81 fL (79-100) Mean Corpuscular Hemoglobin 27 pg (25-35) Mean Corpuscular Hemoglobin Concent 33 g/dL (31-37) Red Cell Distribution Width 18.5 % (11.5-14.5) Platelet Count 179 x10^3/uL (140-400) Neutrophils (%) (Auto) 71 % (31-73) Lymphocytes (%) (Auto) 13 % (24-48) Monocytes (%) (Auto) 9 % (0-9) Eosinophils (%) (Auto) 6 % (0-3) Basophils (%) (Auto) 1 % (0-3) Neutrophils # (Auto) 5.0 x10^3uL (1.8-7.7) Lymphocytes # (Auto) 0.9 x10^3/uL (1.0-4.8) Monocytes # (Auto) 0.6 x10^3/uL (0.0-1.1) Eosinophils # (Auto) 0.4 x10^3/uL (0.0-0.7) Basophils # (Auto) 0.1 x10^3/uL (0.0-0.2) Sodium Level 142 mmol/L (136-145) Potassium Level 3.1 mmol/L (3.5-5.1) Chloride Level 106 mmol/L (98-107) Carbon Dioxide Level 30 mmol/L (21-32) Anion Gap 6 (6-14) Blood Urea Nitrogen 23 mg/dL (8-26) Creatinine 2.6 mg/dL (0.7-1.3) Estimated GFR (Cockcroft-Gault) 31.4 Glucose Level 201 mg/dL (70-99) Calcium Level 8.1 mg/dL (8.5-10.1) Glucose (Fingerstick) 175 mg/dL (70-99) 262 mg/dL (70-99) 113 mg/dL (70-99) Test 06/27/17 20:54 06/28/17 03:30 06/28/17 08:16 06/28/17 11:23 Glucose (Fingerstick) 175 mg/dL (70-99) 179 mg/dL (70-99) 270 mg/dL (70-99) White Blood Count 6.6 x10^3/uL (4.0-11.0) Red Blood Count 3.24 x10^6/uL (4.30-5.70) Hemoglobin 8.7 g/dL (13.0-17.5) Hematocrit 26.3 % (39.0-53.0) Mean Corpuscular Volume 81 fL (79-100) Mean Corpuscular Hemoglobin 27 pg (25-35) Mean Corpuscular Hemoglobin Concent 33 g/dL (31-37) Red Cell Distribution Width 18.6 % (11.5-14.5) Platelet Count 193 x10^3/uL (140-400) Neutrophils (%) (Auto) 67 % (31-73) Lymphocytes (%) (Auto) 16 % (24-48) Monocytes (%) (Auto) 11 % (0-9) Eosinophils (%) (Auto) 6 % (0-3) Basophils (%) (Auto) 1 % (0-3) Neutrophils # (Auto) 4.4 x10^3uL (1.8-7.7) Lymphocytes # (Auto) 1.0 x10^3/uL (1.0-4.8) Monocytes # (Auto) 0.7 x10^3/uL (0.0-1.1) Eosinophils # (Auto) 0.4 x10^3/uL (0.0-0.7) Basophils # (Auto) 0.0 x10^3/uL (0.0-0.2) Sodium Level 141 mmol/L (136-145) Potassium Level 3.1 mmol/L (3.5-5.1) Chloride Level 106 mmol/L (98-107) Carbon Dioxide Level 27 mmol/L (21-32) Anion Gap 8 (6-14) Blood Urea Nitrogen 22 mg/dL (8-26) Creatinine 2.6 mg/dL (0.7-1.3) Estimated GFR (Cockcroft-Gault) 31.4 Glucose Level 264 mg/dL (70-99) Calcium Level 8.3 mg/dL (8.5-10.1) Laboratory Tests Test 06/27/17 17:01 06/27/17 20:54 06/28/17 03:30 06/28/17 08:16 Glucose (Fingerstick) 113 mg/dL (70-99) 175 mg/dL (70-99) 179 mg/dL (70-99) White Blood Count 6.6 x10^3/uL (4.0-11.0) Red Blood Count 3.24 x10^6/uL (4.30-5.70) Hemoglobin 8.7 g/dL (13.0-17.5) Hematocrit 26.3 % (39.0-53.0) Mean Corpuscular Volume 81 fL (79-100) Mean Corpuscular Hemoglobin 27 pg (25-35) Mean Corpuscular Hemoglobin Concent 33 g/dL (31-37) Red Cell Distribution Width 18.6 % (11.5-14.5) Platelet Count 193 x10^3/uL (140-400) Neutrophils (%) (Auto) 67 % (31-73) Lymphocytes (%) (Auto) 16 % (24-48) Monocytes (%) (Auto) 11 % (0-9) Eosinophils (%) (Auto) 6 % (0-3) Basophils (%) (Auto) 1 % (0-3) Neutrophils # (Auto) 4.4 x10^3uL (1.8-7.7) Lymphocytes # (Auto) 1.0 x10^3/uL (1.0-4.8) Monocytes # (Auto) 0.7 x10^3/uL (0.0-1.1) Eosinophils # (Auto) 0.4 x10^3/uL (0.0-0.7) Basophils # (Auto) 0.0 x10^3/uL (0.0-0.2) Sodium Level 141 mmol/L (136-145) Potassium Level 3.1 mmol/L (3.5-5.1) Chloride Level 106 mmol/L (98-107) Carbon Dioxide Level 27 mmol/L (21-32) Anion Gap 8 (6-14) Blood Urea Nitrogen 22 mg/dL (8-26) Creatinine 2.6 mg/dL (0.7-1.3) Estimated GFR (Cockcroft-Gault) 31.4 Glucose Level 264 mg/dL (70-99) Calcium Level 8.3 mg/dL (8.5-10.1) Test 06/28/17 11:23 Glucose (Fingerstick) 270 mg/dL (70-99) Microbiology 06/25/17 Blood Culture - Preliminary, Resulted NO GROWTH AFTER 3 DAYS Medications Current Medications Sodium Chloride 1,000 ml @ 1,000 mls/hr 1X ONCE IV Last administered on 06/25 08:56; Start 06/25/17 at 08:45; Stop 06/25/17 at 09:44; Status DC Nitroglycerin/ Dextrose 250 ml @ As Directed STK-MED ONCE IV ; Start 06/25/17 at 08:54; Stop 06/25/17 at 08:55; Status DC Nitroglycerin/ Dextrose 250 ml @ 0 mls/hr 1X ONCE IV Last administered on 09:04; Start 06/25/17 at 09:30; Stop 06/25/17 at 09:31; Status DC Furosemide (Lasix) 40 mg 1X ONCE IVP Last administered on 06/25/17 09:35; Start 06/25/17 at 09:30; Stop 06/25/17 at 09:31; Status DC Labetalol HCl (Normodyne) 20 mg 1X ONCE IVP Last administered on 06/25/17 09 :36; Start 06/25/17 at 09:30; Stop 06/25/17 at 09:31; Status DC Aspirin (Berny Aspirin) 325 mg 1X ONCE PO Last administered on 06/25/17 09: 40; Start 06/25/17 at 09:45; Stop 06/25/17 at 09:46; Status DC Metoprolol Tartrate (Lopressor) 25 mg BID PO Last administered on 06/25/17 20 :51; Start 06/25/17 at 11:00; Stop 06/26/17 at 08:25; Status DC Furosemide (Lasix) 40 mg [id number] IVP Last administered on 06/27/17 08:18; Start 06/25/17 at 11:00; Stop 06/27/17 at 12:42; Status DC Labetalol HCl (Normodyne) 20 mg PRN Q2HRS PRN IVP ELEVATED BP, SEE COMMENTS Last administered on 06/27/17 03:52; Start 06/25/17 at 10:45 Aspirin (Ecotrin) 81 mg DAILYWBKFT PO Last administered on 06/28/17 08:40; Start 06/26/17 at 08:00 Atorvastatin Calcium (Lipitor) 40 mg QHS PO ; Start 06/25/17 at 21:00; Stop at 08:01; Status DC Amlodipine Besylate (Norvasc) 10 mg DAILY PO Last administered on 06/28/17 08 :40; Start 06/25/17 at 12:30 Nicardipine HCl 50 mg/Sodium Chloride 270 ml @ 0 mls/hr CONT PRN IV SEE I/O RECORD Last administered on 06/26/17 05:49; Start 06/25/17 at 12:30; Stop at 11:45; Status DC Info (Do NOT chart on this placeholder) 1 each 1X ONCE MC ; Start 06/25/17 at 13:30; Stop 06/25/17 at 13:31; Status UNV Influenza Virus Vaccine Quadrival (Fluarix Quad 3211-1440 Syringe) 0.5 ml ONCE ONCE VAX IM ; Start 06/26/17 at 09:00; Stop 06/26/17 at 09:01; Status DC Amlodipine Besylate (Norvasc) 10 mg DAILY PO ; Start 06/25/17 at 17:00; Stop 06/26/17 at 08:01; Status DC Clonidine HCl (Catapres) 0.1 mg BID PO Last administered on 06/25/17 20:52; Start 06/25/17 at 21:00; Stop 06/26/17 at 08:25; Status DC Hydralazine HCl (Apresoline) 25 mg TID PO Last administered on 06/25/17 20:52 ; Start 06/25/17 at 16:00; Stop 06/26/17 at 08:25; Status DC Atorvastatin Calcium (Lipitor) 80 mg QHS PO Last administered on 06/27/17 20: 55; Start 06/25/17 at 21:00 Carvedilol (Coreg) 50 mg BIDWMEALS PO Last administered on 06/25/17 17:33; Start 06/25/17 at 17:00; Stop 06/26/17 at 08:25; Status DC Gabapentin (Neurontin) 800 mg TID PO Last administered on 06/28/17 08:42; Start 06/25/17 at 16:15 Insulin Aspart (NovoLOG) 0-7 UNITS QIDACHS SQ Last administered on 06/28/17 08:52; Start 06/25/17 at 16:30 Dextrose (Dextrose 50%-Water Syringe) 12.5 gm PRN Q15MIN PRN IV SEE COMMENTS; Start 06/25/17 at 15:45 Carvedilol (Coreg) 25 mg BIDWMEALS PO Last administered on 06/28/17 08:43; Start 06/26/17 at 17:00 Clonidine HCl (Catapres) 0.1 mg PRN Q8HRS PRN PO ELEVATED BP, SEE COMMENTS Last administered on 06/27/17 00:34; Start 06/26/17 at 21:00 Hydralazine HCl (Apresoline) 50 mg TID PO Last administered on 06/26/17 13:39 ; Start 06/26/17 at 09:00; Stop 06/26/17 at 13:43; Status DC Isosorbide Mononitrate (Imdur) 60 mg DAILY PO Last administered on 06/26/17 09:21; Start 06/26/17 at 09:00; Stop 06/26/17 at 13:43; Status DC Carvedilol (Coreg) 25 mg 1X ONCE PO Last administered on 06/26/17 13:39; Start 06/26/17 at 12:00; Stop 06/26/17 at 12:01; Status DC Hydralazine HCl (Apresoline) 100 mg TID PO Last administered on 06/28/17 08: 44; Start 06/26/17 at 14:00; Stop 06/28/17 at 08:50; Status DC Isosorbide Mononitrate (Imdur) 120 mg DAILY PO Last administered on 06/28/17 08:42; Start 06/27/17 at 09:00 Isosorbide Mononitrate (Imdur) 60 mg 1X ONCE PO ; Start 06/26/17 at 14:00; Stop 06/26/17 at 14:01; Status DC Hydralazine HCl (Apresoline Inj) 10 mg 1X ONCE IVP ; Start 06/26/17 at 13:45; Stop 06/26/17 at 13:47; Status DC Magnesium Sulfate/ Dextrose 50 ml @ 25 mls/hr 1X ONCE IV Last administered on 06/26/17 15:25; Start 06/26/17 at 15:00; Stop 06/26/17 at 16:59; Status DC Nicotine (Nicoderm Cq 14mg) 1 patch DAILY TD Last administered on 06/28/17 09 :41; Start 06/26/17 at 19:15 Nicardipine HCl 50 mg/Sodium Chloride 270 ml @ 0 mls/hr CONT PRN IV SEE I/O RECORD Last administered on 06/27/17 06:15; Start 06/27/17 at 06:15 Potassium Chloride (Klor-Con) 40 meq 1X ONCE PO Last administered on 08:18; Start 06/27/17 at 07:30; Stop 06/27/17 at 07:39; Status DC Magnesium Chloride (Mag Delay) 64 mg 1X ONCE PO Last administered on 08:19; Start 06/27/17 at 07:30; Stop 06/27/17 at 07:39; Status DC Acetaminophen (Tylenol) 650 mg PRN Q6HRS PRN PO MILD PAIN / TEMP Last administered on 06/27/17 09:45; Start 06/27/17 at 09:45 Clonidine HCl (Catapres) 0.2 mg Q8HRS PO Last administered on 06/28/17 05:29 ; Start 06/27/17 at 11:30 Furosemide (Lasix) 40 mg BID92 PO Last administered on 06/28/17 08:44; Start 06/27/17 at 14:00 Potassium Chloride (Klor-Con) 40 meq 1X ONCE PO Last administered on 08:39; Start 06/28/17 at 08:30; Stop 06/28/17 at 08:31; Status DC Hydralazine HCl (Apresoline) 100 mg TID PO Last administered on 06/28/17t 09: 41; Start 06/28/17 at 09:00 Active Scripts Active Reported Metformin Hcl Er (Metformin Hcl) 1,000 Mg Tab.er.24 1,000 Mg PO DAILYWBKFT Hydralazine Hcl 25 Mg Tablet 1 Tab PO TID Clonidine Hcl 0.1 Mg Tablet 1 Tab PO BID Carvedilol 25 Mg Tablet 2 Tab PO BID Atorvastatin Calcium 80 Mg Tablet 1 Tab PO DAILY Amlodipine Besylate 10 Mg Tablet 10 Mg PO DAILY Gabapentin 800 Mg Tablet 800 Mg PO TID Glimepiride 4 Mg Tablet 1 Tab PO BID Vitals/I & O Vital Sign - Last 24 Hours 06/27/17 06/27/17 06/27/17 06/27/17 12:15 13:00 14:00 14:14 Pulse 84 85 78 Resp 22 22 B/P (MAP) 134/70 (91) 124/69 (87) 124/69 Pulse Ox 98 98 O2 Delivery Room Air Room Air Room Air 06/27/17 06/27/17 06/27/17 06/27/17 15:00 16:00 16:00 17:05 Pulse 87 90 80 Resp 22 20 B/P (MAP) 154/81 (105) 145/80 (101) 160/91 Pulse Ox 98 99 O2 Delivery Room Air Room Air Room Air 06/27/17 06/27/17 06/27/17 06/27/17 17:06 18:00 19:00 20:00 Pulse 82 75 89 Resp 20 24 16 B/P (MAP) 160/91 (114) 138/86 (103) 145/80 (101) Pulse Ox 98 98 98 O2 Delivery Room Air Room Air Room Air Room Air 06/27/17 06/27/17 06/27/17 06/27/17 20:00 20:17 20:56 21:00 Temp 97.8 97.8 Pulse 84 90 90 90 Resp 20 20 B/P (MAP) 154/82 (106) 145/80 (101) 154/82 154/82 Pulse Ox 98 99 O2 Delivery Room Air Room Air 06/27/17 06/27/17 06/27/17 06/27/17 21:00 22:00 23:00 23:59 Pulse 86 84 84 Resp 20 16 16 B/P (MAP) 164/86 (112) 136/83 (100) 136/83 (100) Pulse Ox 99 99 99 O2 Delivery Room Air Room Air Room Air Room Air 06/28/17 06/28/17 06/28/17 06/28/17 00:00 01:00 02:00 03:00 Temp 98.8 98.8 Pulse 84 85 82 82 Resp 16 16 16 24 B/P (MAP) 114/89 (97) 139/84 (102) 140/77 (98) 148/81 (103) Pulse Ox 93 99 98 98 O2 Delivery Room Air Room Air Room Air Room Air 06/28/17 06/28/17 06/28/17 06/28/17 04:00 04:00 05:00 05:29 Temp 98.0 98.0 Pulse 81 83 83 Resp 12 14 B/P (MAP) 159/98 (118) 152/99 (116) 152/99 Pulse Ox 98 99 O2 Delivery Room Air Room Air Room Air 06/28/17 06/28/17 06/28/17 06/28/17 06:00 07:00 08:00 08:00 Temp 98.1 98.1 Pulse 86 79 80 Resp 14 20 20 B/P (MAP) 141/101 (114) 149/97 (114) 177/93 (121) Pulse Ox 98 98 98 O2 Delivery Room Air Room Air Room Air Room Air 06/28/17 06/28/17 06/28/17 06/28/17 08:40 08:42 08:43 08:44 Pulse 78 77 77 77 B/P (MAP) 149/97 149/97 149/97 149/97 06/28/17 06/28/17 09:00 09:41 Pulse 78 80 Resp 20 B/P (MAP) 165/90 (115) 177/93 Pulse Ox 96 Intake and Output 06/28/17 06/28/17 06/29/17 15:00 23:00 07:00 Intake Total 600 ml Output Total 500 ml Balance 100 ml BIANCA GRANT MD Jun 28, 2017 12:04
--- NOTE | 2017-06-28 15:06 | PDOC ---
PROGRESS NOTES Subjective Subjective SEEN IN FOLLOW UP OF CKD3 Objective Objective Vital Signs Date Time Temp Pulse Resp B/P (MAP) Pulse Ox O2 Delivery O2 Flow Rate FiO2 06/28/17 14:57 80 133/81 06/28/17 11:00 98.4 20 97 Room Air 98.4 Intake and Output 06/29/17 07:00 Intake Total 600 ml Output Total 900 ml Balance -300 ml Intake Oral 600 ml Output Urine Total 900 ml Physical Exam Abdomen: Normal bowel sounds, Soft, No tenderness, No hepatosplenomegaly, No masses Heart: Regular rate, Normal S1, Normal S2, No murmurs, Gallops Extremities: No clubbing, No cyanosis, No edema, Normal pulses, No tenderness/ swelling General: Alert, Oriented X3, Cooperative, No acute distress Lungs: Clear to auscultation, Normal air movement Psych/Mental Status: Mental status NL, Mood NL Diagnosis HYPERTENSION: Accelerated hypertension RENAL FAILURE: Acute, Chronic (CKD stage III) Assessment Assessment Problems Medical Problems: (1) Malignant hypertension Status: Acute (2) Unstable angina Status: Acute Plan Plan of Care CONT BP CONTROL AND FOLLOW LAB. TO FOLLOW UP WITH DR AUSTIN AT D/C Comment Review of Relevant I have reviewed the following items nabil (where applicable) has been applied. Labs Laboratory Tests Test 06/26/17 17:31 06/26/17 20:54 06/27/17 04:00 06/27/17 07:50 Glucose (Fingerstick) 159 mg/dL (70-99) 166 mg/dL (70-99) 175 mg/dL (70-99) White Blood Count 7.0 x10^3/uL (4.0-11.0) Red Blood Count 3.26 x10^6/uL (4.30-5.70) Hemoglobin 8.8 g/dL (13.0-17.5) Hematocrit 26.4 % (39.0-53.0) Mean Corpuscular Volume 81 fL (79-100) Mean Corpuscular Hemoglobin 27 pg (25-35) Mean Corpuscular Hemoglobin Concent 33 g/dL (31-37) Red Cell Distribution Width 18.5 % (11.5-14.5) Platelet Count 179 x10^3/uL (140-400) Neutrophils (%) (Auto) 71 % (31-73) Lymphocytes (%) (Auto) 13 % (24-48) Monocytes (%) (Auto) 9 % (0-9) Eosinophils (%) (Auto) 6 % (0-3) Basophils (%) (Auto) 1 % (0-3) Neutrophils # (Auto) 5.0 x10^3uL (1.8-7.7) Lymphocytes # (Auto) 0.9 x10^3/uL (1.0-4.8) Monocytes # (Auto) 0.6 x10^3/uL (0.0-1.1) Eosinophils # (Auto) 0.4 x10^3/uL (0.0-0.7) Basophils # (Auto) 0.1 x10^3/uL (0.0-0.2) Sodium Level 142 mmol/L (136-145) Potassium Level 3.1 mmol/L (3.5-5.1) Chloride Level 106 mmol/L (98-107) Carbon Dioxide Level 30 mmol/L (21-32) Anion Gap 6 (6-14) Blood Urea Nitrogen 23 mg/dL (8-26) Creatinine 2.6 mg/dL (0.7-1.3) Estimated GFR (Cockcroft-Gault) 31.4 Glucose Level 201 mg/dL (70-99) Calcium Level 8.1 mg/dL (8.5-10.1) Test 06/27/17 11:25 06/27/17 17:01 06/27/17 20:54 06/28/17 03:30 Glucose (Fingerstick) 262 mg/dL (70-99) 113 mg/dL (70-99) 175 mg/dL (70-99) White Blood Count 6.6 x10^3/uL (4.0-11.0) Red Blood Count 3.24 x10^6/uL (4.30-5.70) Hemoglobin 8.7 g/dL (13.0-17.5) Hematocrit 26.3 % (39.0-53.0) Mean Corpuscular Volume 81 fL (79-100) Mean Corpuscular Hemoglobin 27 pg (25-35) Mean Corpuscular Hemoglobin Concent 33 g/dL (31-37) Red Cell Distribution Width 18.6 % (11.5-14.5) Platelet Count 193 x10^3/uL (140-400) Neutrophils (%) (Auto) 67 % (31-73) Lymphocytes (%) (Auto) 16 % (24-48) Monocytes (%) (Auto) 11 % (0-9) Eosinophils (%) (Auto) 6 % (0-3) Basophils (%) (Auto) 1 % (0-3) Neutrophils # (Auto) 4.4 x10^3uL (1.8-7.7) Lymphocytes # (Auto) 1.0 x10^3/uL (1.0-4.8) Monocytes # (Auto) 0.7 x10^3/uL (0.0-1.1) Eosinophils # (Auto) 0.4 x10^3/uL (0.0-0.7) Basophils # (Auto) 0.0 x10^3/uL (0.0-0.2) Sodium Level 141 mmol/L (136-145) Potassium Level 3.1 mmol/L (3.5-5.1) Chloride Level 106 mmol/L (98-107) Carbon Dioxide Level 27 mmol/L (21-32) Anion Gap 8 (6-14) Blood Urea Nitrogen 22 mg/dL (8-26) Creatinine 2.6 mg/dL (0.7-1.3) Estimated GFR (Cockcroft-Gault) 31.4 Glucose Level 264 mg/dL (70-99) Calcium Level 8.3 mg/dL (8.5-10.1) Test 06/28/17 08:16 06/28/17 11:23 Glucose (Fingerstick) 179 mg/dL (70-99) 270 mg/dL (70-99) Laboratory Tests Test 06/27/17 17:01 06/27/17 20:54 06/28/17 03:30 06/28/17 08:16 Glucose (Fingerstick) 113 mg/dL (70-99) 175 mg/dL (70-99) 179 mg/dL (70-99) White Blood Count 6.6 x10^3/uL (4.0-11.0) Red Blood Count 3.24 x10^6/uL (4.30-5.70) Hemoglobin 8.7 g/dL (13.0-17.5) Hematocrit 26.3 % (39.0-53.0) Mean Corpuscular Volume 81 fL (79-100) Mean Corpuscular Hemoglobin 27 pg (25-35) Mean Corpuscular Hemoglobin Concent 33 g/dL (31-37) Red Cell Distribution Width 18.6 % (11.5-14.5) Platelet Count 193 x10^3/uL (140-400) Neutrophils (%) (Auto) 67 % (31-73) Lymphocytes (%) (Auto) 16 % (24-48) Monocytes (%) (Auto) 11 % (0-9) Eosinophils (%) (Auto) 6 % (0-3) Basophils (%) (Auto) 1 % (0-3) Neutrophils # (Auto) 4.4 x10^3uL (1.8-7.7) Lymphocytes # (Auto) 1.0 x10^3/uL (1.0-4.8) Monocytes # (Auto) 0.7 x10^3/uL (0.0-1.1) Eosinophils # (Auto) 0.4 x10^3/uL (0.0-0.7) Basophils # (Auto) 0.0 x10^3/uL (0.0-0.2) Sodium Level 141 mmol/L (136-145) Potassium Level 3.1 mmol/L (3.5-5.1) Chloride Level 106 mmol/L (98-107) Carbon Dioxide Level 27 mmol/L (21-32) Anion Gap 8 (6-14) Blood Urea Nitrogen 22 mg/dL (8-26) Creatinine 2.6 mg/dL (0.7-1.3) Estimated GFR (Cockcroft-Gault) 31.4 Glucose Level 264 mg/dL (70-99) Calcium Level 8.3 mg/dL (8.5-10.1) Test 06/28/17 11:23 Glucose (Fingerstick) 270 mg/dL (70-99) Microbiology 06/25/17 Blood Culture - Preliminary, Resulted NO GROWTH AFTER 3 DAYS Medications Current Medications Sodium Chloride 1,000 ml @ 1,000 mls/hr 1X ONCE IV Last administered on 06/25t 08:56; Start 06/25/17 at 08:45; Stop 06/25/17 at 09:44; Status DC Nitroglycerin/ Dextrose 250 ml @ As Directed STK-MED ONCE IV ; Start 06/25/17 at 08:54; Stop 06/25/17 at 08:55; Status DC Nitroglycerin/ Dextrose 250 ml @ 0 mls/hr 1X ONCE IV Last administered on 09:04; Start 06/25/17 at 09:30; Stop 06/25/17 at 09:31; Status DC Furosemide (Lasix) 40 mg 1X ONCE IVP Last administered on 06/25/17 09:35; Start 06/25/17 at 09:30; Stop 06/25/17 at 09:31; Status DC Labetalol HCl (Normodyne) 20 mg 1X ONCE IVP Last administered on 06/25/17 09 :36; Start 06/25/17 at 09:30; Stop 06/25/17 at 09:31; Status DC Aspirin (Berny Aspirin) 325 mg 1X ONCE PO Last administered on 06/25/17 09: 40; Start 06/25/17 at 09:45; Stop 06/25/17 at 09:46; Status DC Metoprolol Tartrate (Lopressor) 25 mg BID PO Last administered on 06/25/17 20 :51; Start 06/25/17 at 11:00; Stop 06/26/17 at 08:25; Status DC Furosemide (Lasix) 40 mg [id number] IVP Last administered on 06/27/17 08:18; Start 06/25/17 at 11:00; Stop 06/27/17 at 12:42; Status DC Labetalol HCl (Normodyne) 20 mg PRN Q2HRS PRN IVP ELEVATED BP, SEE COMMENTS Last administered on 06/27/17 03:52; Start 06/25/17 at 10:45 Aspirin (Ecotrin) 81 mg DAILYWBKFT PO Last administered on 06/28/17 08:40; Start 06/26/17 at 08:00 Atorvastatin Calcium (Lipitor) 40 mg QHS PO ; Start 06/25/17 at 21:00; Stop at 08:01; Status DC Amlodipine Besylate (Norvasc) 10 mg DAILY PO Last administered on 06/28/17 08 :40; Start 06/25/17 at 12:30 Nicardipine HCl 50 mg/Sodium Chloride 270 ml @ 0 mls/hr CONT PRN IV SEE I/O RECORD Last administered on 06/26/17 05:49; Start 06/25/17 at 12:30; Stop at 11:45; Status DC Info (Do NOT chart on this placeholder) 1 each 1X ONCE MC ; Start 06/25/17 at 13:30; Stop 06/25/17 at 13:31; Status UNV Influenza Virus Vaccine Quadrival (Fluarix Quad 0935-1609 Syringe) 0.5 ml ONCE ONCE VAX IM ; Start 06/26/17 at 09:00; Stop 06/26/17 at 09:01; Status DC Amlodipine Besylate (Norvasc) 10 mg DAILY PO ; Start 06/25/17 at 17:00; Stop 06/26/17 at 08:01; Status DC Clonidine HCl (Catapres) 0.1 mg BID PO Last administered on 06/25/17 20:52; Start 06/25/17 at 21:00; Stop 06/26/17 at 08:25; Status DC Hydralazine HCl (Apresoline) 25 mg TID PO Last administered on 06/25/17 20:52 ; Start 06/25/17 at 16:00; Stop 06/26/17 at 08:25; Status DC Atorvastatin Calcium (Lipitor) 80 mg QHS PO Last administered on 06/27/17 20: 55; Start 06/25/17 at 21:00 Carvedilol (Coreg) 50 mg BIDWMEALS PO Last administered on 06/25/17 17:33; Start 06/25/17 at 17:00; Stop 06/26/17 at 08:25; Status DC Gabapentin (Neurontin) 800 mg TID PO Last administered on 06/28/17 14:57; Start 06/25/17 at 16:15 Insulin Aspart (NovoLOG) 0-7 UNITS QIDACHS SQ Last administered on 06/28/17 12:27; Start 06/25/17 at 16:30 Dextrose (Dextrose 50%-Water Syringe) 12.5 gm PRN Q15MIN PRN IV SEE COMMENTS; Start 06/25/17 at 15:45 Carvedilol (Coreg) 25 mg BIDWMEALS PO Last administered on 06/28/17 08:43; Start 06/26/17 at 17:00 Clonidine HCl (Catapres) 0.1 mg PRN Q8HRS PRN PO ELEVATED BP, SEE COMMENTS Last administered on 06/27/17 00:34; Start 06/26/17 at 21:00 Hydralazine HCl (Apresoline) 50 mg TID PO Last administered on 06/26/17 13:39 ; Start 06/26/17 at 09:00; Stop 06/26/17 at 13:43; Status DC Isosorbide Mononitrate (Imdur) 60 mg DAILY PO Last administered on 06/26/17 09:21; Start 06/26/17 at 09:00; Stop 06/26/17 at 13:43; Status DC Carvedilol (Coreg) 25 mg 1X ONCE PO Last administered on 06/26/17 13:39; Start 06/26/17 at 12:00; Stop 06/26/17 at 12:01; Status DC Hydralazine HCl (Apresoline) 100 mg TID PO Last administered on 06/28/17 08: 44; Start 06/26/17 at 14:00; Stop 06/28/17 at 08:50; Status DC Isosorbide Mononitrate (Imdur) 120 mg DAILY PO Last administered on 06/28/17 08:42; Start 06/27/17 at 09:00 Isosorbide Mononitrate (Imdur) 60 mg 1X ONCE PO ; Start 06/26/17 at 14:00; Stop 06/26/17 at 14:01; Status DC Hydralazine HCl (Apresoline Inj) 10 mg 1X ONCE IVP ; Start 06/26/17 at 13:45; Stop 06/26/17 at 13:47; Status DC Magnesium Sulfate/ Dextrose 50 ml @ 25 mls/hr 1X ONCE IV Last administered on 06/26/17 15:25; Start 06/26/17 at 15:00; Stop 06/26/17 at 16:59; Status DC Nicotine (Nicoderm Cq 14mg) 1 patch DAILY TD Last administered on 06/28/17 09 :41; Start 06/26/17 at 19:15 Nicardipine HCl 50 mg/Sodium Chloride 270 ml @ 0 mls/hr CONT PRN IV SEE I/O RECORD Last administered on 06/27/17 06:15; Start 06/27/17 at 06:15 Potassium Chloride (Klor-Con) 40 meq 1X ONCE PO Last administered on 08:18; Start 06/27/17 at 07:30; Stop 06/27/17 at 07:39; Status DC Magnesium Chloride (Mag Delay) 64 mg 1X ONCE PO Last administered on 08:19; Start 06/27/17 at 07:30; Stop 06/27/17 at 07:39; Status DC Acetaminophen (Tylenol) 650 mg PRN Q6HRS PRN PO MILD PAIN / TEMP Last administered on 06/27/17 09:45; Start 06/27/17 at 09:45 Clonidine HCl (Catapres) 0.2 mg Q8HRS PO Last administered on 06/28/17 14:56 ; Start 06/27/17 at 11:30 Furosemide (Lasix) 40 mg BID92 PO Last administered on 06/28/17 14:58; Start 06/27/17 at 14:00 Potassium Chloride (Klor-Con) 40 meq 1X ONCE PO Last administered on 08:39; Start 06/28/17 at 08:30; Stop 06/28/17 at 08:31; Status DC Hydralazine HCl (Apresoline) 100 mg TID PO Last administered on 06/28/17 14: 57; Start 06/28/17 at 09:00 Active Scripts Active Reported Metformin Hcl Er (Metformin Hcl) 1,000 Mg Tab.er.24 1,000 Mg PO DAILYWBKFT Hydralazine Hcl 25 Mg Tablet 1 Tab PO TID Clonidine Hcl 0.1 Mg Tablet 1 Tab PO BID Carvedilol 25 Mg Tablet 2 Tab PO BID Atorvastatin Calcium 80 Mg Tablet 1 Tab PO DAILY Amlodipine Besylate 10 Mg Tablet 10 Mg PO DAILY Gabapentin 800 Mg Tablet 800 Mg PO TID Glimepiride 4 Mg Tablet 1 Tab PO BID Vitals/I & O Vital Sign - Last 24 Hours 06/27/17 06/27/17 06/27/17 06/27/17 16:00 16:00 17:05 17:06 Pulse 90 80 82 Resp 20 20 B/P (MAP) 145/80 (101) 160/91 160/91 (114) Pulse Ox 99 98 O2 Delivery Room Air Room Air Room Air 06/27/17 06/27/17 06/27/17 06/27/17 18:00 19:00 20:00 20:00 Temp 97.8 97.8 Pulse 75 89 84 Resp 24 16 20 B/P (MAP) 138/86 (103) 145/80 (101) 154/82 (106) Pulse Ox 98 98 98 O2 Delivery Room Air Room Air Room Air Room Air 06/27/17 06/27/17 06/27/17 06/27/17 20:17 20:56 21:00 21:00 Pulse 90 90 90 86 Resp 20 20 B/P (MAP) 145/80 (101) 154/82 154/82 164/86 (112) Pulse Ox 99 99 O2 Delivery Room Air Room Air 06/27/17 06/27/17 06/27/17 06/28/17 22:00 23:00 23:59 00:00 Temp 98.8 98.8 Pulse 84 84 84 Resp 16 16 16 B/P (MAP) 136/83 (100) 136/83 (100) 114/89 (97) Pulse Ox 99 99 93 O2 Delivery Room Air Room Air Room Air Room Air 06/28/17 06/28/17 06/28/17 06/28/17 01:00 02:00 03:00 04:00 Pulse 85 82 82 Resp 16 16 24 B/P (MAP) 139/84 (102) 140/77 (98) 148/81 (103) Pulse Ox 99 98 98 O2 Delivery Room Air Room Air Room Air Room Air 06/28/17 06/28/17 06/28/17 06/28/17 04:00 05:00 05:29 06:00 Temp 98.0 98.0 Pulse 81 83 83 86 Resp 12 14 14 B/P (MAP) 159/98 (118) 152/99 (116) 152/99 141/101 (114) Pulse Ox 98 99 98 O2 Delivery Room Air Room Air Room Air 06/28/17 06/28/17 06/28/17 06/28/17 07:00 08:00 08:00 08:40 Temp 98.1 98.1 Pulse 79 80 78 Resp 20 20 B/P (MAP) 149/97 (114) 177/93 (121) 149/97 Pulse Ox 98 98 O2 Delivery Room Air Room Air Room Air 06/28/17 06/28/17 06/28/17 06/28/17 08:42 08:43 08:44 09:00 Pulse 77 77 77 78 Resp 20 B/P (MAP) 149/97 149/97 149/97 165/90 (115) Pulse Ox 96 06/28/17 06/28/17 06/28/17 06/28/17 09:41 10:00 11:00 14:56 Temp 98.0 98.4 98.0 98.4 Pulse 80 80 96 85 Resp 20 20 B/P (MAP) 177/93 157/82 (107) 157/84 (108) 133/81 Pulse Ox 98 97 O2 Delivery Room Air Room Air 06/28/17 14:57 Pulse 80 B/P (MAP) 133/81 Intake and Output 06/28/17 06/28/17 06/29/17 15:00 23:00 07:00 Intake Total 600 ml Output Total 900 ml Balance -300 ml ELLYN LUCERO MD Jun 28, 2017 15:06
[2017-06-28] MEDS: ATORVASTATIN CALCIUM 40 MG TABLET. PO SCH (21:04)
[2017-06-29] VITALS: BP 155/82
[2017-06-29] MEDS: ACETAMINOPHEN 325 MG TABLET. PO PRN (00:11)
[2017-06-29 04:00] VITALS: BP 154/92
[2017-06-29 05:28] LABS: BASO # 0.1 x10^3/uL (0.0-0.2); BASO % 1 % (0-3); EOS % 6 % (0-3); HEMATOCRIT 26.5 % (39.0-53.0); HEMOGLOBIN 8.9 g/dL (13.0-17.5); LYMPH # 1.4 x10^3/uL (1.0-4.8); LYMPH % 19 % (24-48); MEAN CORPUSCULAR HEMOGLOBIN 27 pg (25-35); MEAN CORPUSCULAR HGB CONC 33 g/dL (31-37); MEAN CORPUSCULAR VOLUME 81 fL (79-100); MONO % 10 % (0-9); NEUT % 65 % (31-73); PLATELET COUNT 220 x10^3/uL (140-400); RED CELL DISTRIBUTION WIDTH 18.7 % (11.5-14.5); WHITE BLOOD COUNT 7.3 x10^3/uL (4.0-11.0)
[2017-06-29] MEDS: cloNIDine HCL 0.2 MG TABLET PO SCH ×2 (05:53→14:39)
[2017-06-29 05:55] LABS: CALCIUM 8.5 mg/dL (8.5-10.1); CREATININE 2.5 mg/dL (0.7-1.3); GFR 32.9; POTASSIUM 3.3 mmol/L (3.5-5.1)
[2017-06-29 08:00] VITALS: BP 176/111
[2017-06-29] MEDS: amLODIPine BESYLATE 10 MG TABLET PO SCH (08:41)
[2017-06-29] MEDS: FUROSEMIDE 40 MG TABLET. PO SCH ×2 (08:41→14:39)
[2017-06-29] MEDS: ASPIRIN ENTERIC COATED 81 MG TABLET.DR. PO SCH (08:42)
[2017-06-29] MEDS: ISOSORBIDE MONONITRATE ER 30 MG TAB.ER.24H PO SCH (08:42)
[2017-06-29] MEDS: CARVEDILOL 12.5 MG TABLET. PO SCH (08:44)
[2017-06-29] MEDS: NICOTINE 14MG PATCH. TD SCH (08:44)
[2017-06-29] MEDS: INSULIN ASPART 300 UNITS/3 ML INSULN.PEN SQ SCH ×2 (08:47→11:30)
[2017-06-29] MEDS: GABAPENTIN 400 MG CAPSULE. PO SCH ×2 (09:00→14:39)
[2017-06-29] MEDS ORDERED: POTASSIUM CHLORIDE 20 MEQ TABLET.ER. PO ONE (09:30)
[2017-06-29 10:38] VITALS: BP 151/80
--- NOTE | 2017-06-29 11:49 | PDOC ---
PROGRESS NOTES Subjective Subjective Patient seen and examined Objective Objective Vital Signs Date Time Temp Pulse Resp B/P (MAP) Pulse Ox O2 Delivery O2 Flow Rate FiO2 06/29/17 10:38 90 18 151/80 (103) 98 Room Air 06/29/17 08:00 97.7 97.7 Intake and Output 06/30/17 07:00 Intake Total 275 ml Output Total 500 ml Balance -225 ml Intake Oral 275 ml Output Urine Total 500 ml Physical Exam Abdomen: Normal bowel sounds Heart: Regular rate General: No acute distress Lungs: Clear to auscultation Assessment Assessment Problems Medical Problems: (1) Malignant hypertension Status: Acute (2) Unstable angina Status: Acute 1. Malignant HTN: better. renal duplex neg for stenosis. BP continues to improve. Increase activities. Oral medications. 2. Noncompliance: was skipping meds at home and failed cardiology f/u 3. Acute on chronic diastolic: compensated. 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 Elevated troponin: peaked at 0.12, demand mediated with above culprits. TTE with normal EF and wall motion with borderline LVH. Continue medical treatment. 6. CAD: recent CABG x3 on 11/2016. Stable. 7. DM2/HLP 8. Substance abuse: marijuana and heroin 9. Recent hx of syncope. Rhythm stable. Comment Review of Relevant I have reviewed the following items nabil (where applicable) has been applied. Labs Laboratory Tests Test 06/27/17 17:01 06/27/17 20:54 06/28/17 03:30 06/28/17 08:16 Glucose (Fingerstick) 113 mg/dL (70-99) 175 mg/dL (70-99) 179 mg/dL (70-99) White Blood Count 6.6 x10^3/uL (4.0-11.0) Red Blood Count 3.24 x10^6/uL (4.30-5.70) Hemoglobin 8.7 g/dL (13.0-17.5) Hematocrit 26.3 % (39.0-53.0) Mean Corpuscular Volume 81 fL (79-100) Mean Corpuscular Hemoglobin 27 pg (25-35) Mean Corpuscular Hemoglobin Concent 33 g/dL (31-37) Red Cell Distribution Width 18.6 % (11.5-14.5) Platelet Count 193 x10^3/uL (140-400) Neutrophils (%) (Auto) 67 % (31-73) Lymphocytes (%) (Auto) 16 % (24-48) Monocytes (%) (Auto) 11 % (0-9) Eosinophils (%) (Auto) 6 % (0-3) Basophils (%) (Auto) 1 % (0-3) Neutrophils # (Auto) 4.4 x10^3uL (1.8-7.7) Lymphocytes # (Auto) 1.0 x10^3/uL (1.0-4.8) Monocytes # (Auto) 0.7 x10^3/uL (0.0-1.1) Eosinophils # (Auto) 0.4 x10^3/uL (0.0-0.7) Basophils # (Auto) 0.0 x10^3/uL (0.0-0.2) Sodium Level 141 mmol/L (136-145) Potassium Level 3.1 mmol/L (3.5-5.1) Chloride Level 106 mmol/L (98-107) Carbon Dioxide Level 27 mmol/L (21-32) Anion Gap 8 (6-14) Blood Urea Nitrogen 22 mg/dL (8-26) Creatinine 2.6 mg/dL (0.7-1.3) Estimated GFR (Cockcroft-Gault) 31.4 Glucose Level 264 mg/dL (70-99) Calcium Level 8.3 mg/dL (8.5-10.1) Test 06/28/17 11:23 06/28/17 17:56 06/28/17 21:10 06/29/17 03:33 Glucose (Fingerstick) 270 mg/dL (70-99) 96 mg/dL (70-99) 137 mg/dL (70-99) White Blood Count 7.3 x10^3/uL (4.0-11.0) Red Blood Count 3.30 x10^6/uL (4.30-5.70) Hemoglobin 8.9 g/dL (13.0-17.5) Hematocrit 26.5 % (39.0-53.0) Mean Corpuscular Volume 81 fL (79-100) Mean Corpuscular Hemoglobin 27 pg (25-35) Mean Corpuscular Hemoglobin Concent 33 g/dL (31-37) Red Cell Distribution Width 18.7 % (11.5-14.5) Platelet Count 220 x10^3/uL (140-400) Neutrophils (%) (Auto) 65 % (31-73) Lymphocytes (%) (Auto) 19 % (24-48) Monocytes (%) (Auto) 10 % (0-9) Eosinophils (%) (Auto) 6 % (0-3) Basophils (%) (Auto) 1 % (0-3) Neutrophils # (Auto) 4.8 x10^3uL (1.8-7.7) Lymphocytes # (Auto) 1.4 x10^3/uL (1.0-4.8) Monocytes # (Auto) 0.7 x10^3/uL (0.0-1.1) Eosinophils # (Auto) 0.4 x10^3/uL (0.0-0.7) Basophils # (Auto) 0.1 x10^3/uL (0.0-0.2) Sodium Level 143 mmol/L (136-145) Potassium Level 3.3 mmol/L (3.5-5.1) Chloride Level 108 mmol/L (98-107) Carbon Dioxide Level 27 mmol/L (21-32) Anion Gap 8 (6-14) Blood Urea Nitrogen 22 mg/dL (8-26) Creatinine 2.5 mg/dL (0.7-1.3) Estimated GFR (Cockcroft-Gault) 32.9 Glucose Level 152 mg/dL (70-99) Calcium Level 8.5 mg/dL (8.5-10.1) Laboratory Tests Test 06/28/17 17:56 06/28/17 21:10 06/29/17 03:33 Glucose (Fingerstick) 96 mg/dL (70-99) 137 mg/dL (70-99) White Blood Count 7.3 x10^3/uL (4.0-11.0) Red Blood Count 3.30 x10^6/uL (4.30-5.70) Hemoglobin 8.9 g/dL (13.0-17.5) Hematocrit 26.5 % (39.0-53.0) Mean Corpuscular Volume 81 fL (79-100) Mean Corpuscular Hemoglobin 27 pg (25-35) Mean Corpuscular Hemoglobin Concent 33 g/dL (31-37) Red Cell Distribution Width 18.7 % (11.5-14.5) Platelet Count 220 x10^3/uL (140-400) Neutrophils (%) (Auto) 65 % (31-73) Lymphocytes (%) (Auto) 19 % (24-48) Monocytes (%) (Auto) 10 % (0-9) Eosinophils (%) (Auto) 6 % (0-3) Basophils (%) (Auto) 1 % (0-3) Neutrophils # (Auto) 4.8 x10^3uL (1.8-7.7) Lymphocytes # (Auto) 1.4 x10^3/uL (1.0-4.8) Monocytes # (Auto) 0.7 x10^3/uL (0.0-1.1) Eosinophils # (Auto) 0.4 x10^3/uL (0.0-0.7) Basophils # (Auto) 0.1 x10^3/uL (0.0-0.2) Sodium Level 143 mmol/L (136-145) Potassium Level 3.3 mmol/L (3.5-5.1) Chloride Level 108 mmol/L (98-107) Carbon Dioxide Level 27 mmol/L (21-32) Anion Gap 8 (6-14) Blood Urea Nitrogen 22 mg/dL (8-26) Creatinine 2.5 mg/dL (0.7-1.3) Estimated GFR (Cockcroft-Gault) 32.9 Glucose Level 152 mg/dL (70-99) Calcium Level 8.5 mg/dL (8.5-10.1) Microbiology 06/25/17 Blood Culture - Preliminary, Resulted NO GROWTH AFTER 4 DAYS Medications Current Medications Sodium Chloride 1,000 ml @ 1,000 mls/hr 1X ONCE IV Last administered on 06/25 08:56; Start 06/25/17 at 08:45; Stop 06/25/17 at 09:44; Status DC Nitroglycerin/ Dextrose 250 ml @ As Directed STK-MED ONCE IV ; Start 06/25/17 at 08:54; Stop 06/25/17 at 08:55; Status DC Nitroglycerin/ Dextrose 250 ml @ 0 mls/hr 1X ONCE IV Last administered on 09:04; Start 06/25/17 at 09:30; Stop 06/25/17 at 09:31; Status DC Furosemide (Lasix) 40 mg 1X ONCE IVP Last administered on 06/25/17 09:35; Start 06/25/17 at 09:30; Stop 06/25/17 at 09:31; Status DC Labetalol HCl (Normodyne) 20 mg 1X ONCE IVP Last administered on 06/25/17 09 :36; Start 06/25/17 at 09:30; Stop 06/25/17 at 09:31; Status DC Aspirin (Berny Aspirin) 325 mg 1X ONCE PO Last administered on 06/25/17 09: 40; Start 06/25/17 at 09:45; Stop 06/25/17 at 09:46; Status DC Metoprolol Tartrate (Lopressor) 25 mg BID PO Last administered on 06/25/17 20 :51; Start 06/25/17 at 11:00; Stop 06/26/17 at 08:25; Status DC Furosemide (Lasix) 40 mg [id number] IVP Last administered on 06/27/17 08:18; Start 06/25/17 at 11:00; Stop 06/27/17 at 12:42; Status DC Labetalol HCl (Normodyne) 20 mg PRN Q2HRS PRN IVP ELEVATED BP, SEE COMMENTS Last administered on 06/27/17 03:52; Start 06/25/17 at 10:45 Aspirin (Ecotrin) 81 mg DAILYWBKFT PO Last administered on 06/29/17 08:42; Start 06/26/17 at 08:00 Atorvastatin Calcium (Lipitor) 40 mg QHS PO ; Start 06/25/17 at 21:00; Stop at 08:01; Status DC Amlodipine Besylate (Norvasc) 10 mg DAILY PO Last administered on 06/29/17 08 :41; Start 06/25/17 at 12:30 Nicardipine HCl 50 mg/Sodium Chloride 270 ml @ 0 mls/hr CONT PRN IV SEE I/O RECORD Last administered on 06/26/17 05:49; Start 06/25/17 at 12:30; Stop at 11:45; Status DC Info (Do NOT chart on this placeholder) 1 each 1X ONCE MC ; Start 06/25/17 at 13:30; Stop 06/25/17 at 13:31; Status UNV Influenza Virus Vaccine Quadrival (Fluarix Quad [id number] Syringe) 0.5 ml ONCE ONCE VAX IM Last administered on 06/29/17 08:38; Start 06/26/17 at 09:00; Stop 06/26/17 at 09:01; Status DC Amlodipine Besylate (Norvasc) 10 mg DAILY PO ; Start 06/25/17 at 17:00; Stop 06/26/17 at 08:01; Status DC Clonidine HCl (Catapres) 0.1 mg BID PO Last administered on 06/25/17 20:52; Start 06/25/17 at 21:00; Stop 06/26/17 at 08:25; Status DC Hydralazine HCl (Apresoline) 25 mg TID PO Last administered on 06/25/17 20:52 ; Start 06/25/17 at 16:00; Stop 06/26/17 at 08:25; Status DC Atorvastatin Calcium (Lipitor) 80 mg QHS PO Last administered on 06/28/17 21: 04; Start 06/25/17 at 21:00 Carvedilol (Coreg) 50 mg BIDWMEALS PO Last administered on 06/25/17 17:33; Start 06/25/17 at 17:00; Stop 06/26/17 at 08:25; Status DC Gabapentin (Neurontin) 800 mg TID PO Last administered on 06/29/17 09:00; Start 06/25/17 at 16:15 Insulin Aspart (NovoLOG) 0-7 UNITS QIDACHS SQ Last administered on 06/29/17 08:47; Start 06/25/17 at 16:30 Dextrose (Dextrose 50%-Water Syringe) 12.5 gm PRN Q15MIN PRN IV SEE COMMENTS; Start 06/25/17 at 15:45 Carvedilol (Coreg) 25 mg BIDWMEALS PO Last administered on 06/29/17 08:44; Start 06/26/17 at 17:00 Clonidine HCl (Catapres) 0.1 mg PRN Q8HRS PRN PO ELEVATED BP, SEE COMMENTS Last administered on 06/27/17 00:34; Start 06/26/17 at 21:00 Hydralazine HCl (Apresoline) 50 mg TID PO Last administered on 06/26/17 13:39 ; Start 06/26/17 at 09:00; Stop 06/26/17 at 13:43; Status DC Isosorbide Mononitrate (Imdur) 60 mg DAILY PO Last administered on 06/26/17 09:21; Start 06/26/17 at 09:00; Stop 06/26/17 at 13:43; Status DC Carvedilol (Coreg) 25 mg 1X ONCE PO Last administered on 06/26/17 13:39; Start 06/26/17 at 12:00; Stop 06/26/17 at 12:01; Status DC Hydralazine HCl (Apresoline) 100 mg TID PO Last administered on 06/28/17 08: 44; Start 06/26/17 at 14:00; Stop 06/28/17 at 08:50; Status DC Isosorbide Mononitrate (Imdur) 120 mg DAILY PO Last administered on 06/29/17 08:42; Start 06/27/17 at 09:00 Isosorbide Mononitrate (Imdur) 60 mg 1X ONCE PO ; Start 06/26/17 at 14:00; Stop 06/26/17 at 14:01; Status DC Hydralazine HCl (Apresoline Inj) 10 mg 1X ONCE IVP ; Start 06/26/17 at 13:45; Stop 06/26/17 at 13:47; Status DC Magnesium Sulfate/ Dextrose 50 ml @ 25 mls/hr 1X ONCE IV Last administered on 06/26/17 15:25; Start 06/26/17 at 15:00; Stop 06/26/17 at 16:59; Status DC Nicotine (Nicoderm Cq 14mg) 1 patch DAILY TD Last administered on 06/29/17 08 :44; Start 06/26/17 at 19:15 Nicardipine HCl 50 mg/Sodium Chloride 270 ml @ 0 mls/hr CONT PRN IV SEE I/O RECORD Last administered on 06/27/17 06:15; Start 06/27/17 at 06:15 Potassium Chloride (Klor-Con) 40 meq 1X ONCE PO Last administered on 08:18; Start 06/27/17 at 07:30; Stop 06/27/17 at 07:39; Status DC Magnesium Chloride (Mag Delay) 64 mg 1X ONCE PO Last administered on 08:19; Start 06/27/17 at 07:30; Stop 06/27/17 at 07:39; Status DC Acetaminophen (Tylenol) 650 mg PRN Q6HRS PRN PO MILD PAIN / TEMP Last administered on 06/29/17 00:11; Start 06/27/17 at 09:45 Clonidine HCl (Catapres) 0.2 mg Q8HRS PO Last administered on 06/29/17 05:53 ; Start 06/27/17 at 11:30 Furosemide (Lasix) 40 mg BID92 PO Last administered on 06/29/17 08:41; Start 06/27/17 at 14:00 Potassium Chloride (Klor-Con) 40 meq 1X ONCE PO Last administered on 08:39; Start 06/28/17 at 08:30; Stop 06/28/17 at 08:31; Status DC Hydralazine HCl (Apresoline) 100 mg TID PO Last administered on 06/29/17 08: 43; Start 06/28/17 at 09:00 Potassium Chloride (Klor-Con) 40 meq 1X ONCE PO ; Start 06/29/17 at 09:30; Stop 06/29/17 at 09:31; Status DC Active Scripts Active Reported Metformin Hcl Er (Metformin Hcl) 1,000 Mg Tab.er.24 1,000 Mg PO DAILYWBKFT Hydralazine Hcl 25 Mg Tablet 1 Tab PO TID Clonidine Hcl 0.1 Mg Tablet 1 Tab PO BID Carvedilol 25 Mg Tablet 2 Tab PO BID Atorvastatin Calcium 80 Mg Tablet 1 Tab PO DAILY Amlodipine Besylate 10 Mg Tablet 10 Mg PO DAILY Gabapentin 800 Mg Tablet 800 Mg PO TID Glimepiride 4 Mg Tablet 1 Tab PO BID Vitals/I & O Vital Sign - Last 24 Hours 06/28/17 06/28/17 06/28/17 06/28/17 14:56 14:57 16:00 18:00 Temp 98.3 98.3 Pulse 85 80 80 94 B/P (MAP) 133/81 133/81 144/86 (105) 141/75 Pulse Ox 98 1006/28/17 06/28/17 06/28/17 20:00 20:00 21:05 23:25 Pulse 84 83 93 Resp 20 B/P (MAP) 140/79 (99) 140/86 159/87 Pulse Ox 98 O2 Delivery Room Air Room Air 06/29/17 06/29/17 06/29/17 06/29/17 00:00 04:00 05:53 08:00 Temp 97.7 97.7 Pulse 87 85 78 81 Resp 18 18 18 B/P (MAP) 155/82 (106) 154/92 (112) 148/82 176/111 (132) Pulse Ox 97 98 98 O2 Delivery Room Air Room Air Room Air 06/29/17 06/29/17 06/29/17 06/29/17 08:00 08:41 08:42 08:43 Pulse 92 91 91 B/P (MAP) 176/111 176/111 176/111 O2 Delivery Room Air 06/29/17 06/29/17 08:44 10:38 Pulse 91 90 Resp 18 B/P (MAP) 176/111 151/80 (103) Pulse Ox 98 O2 Delivery Room Air Intake and Output 06/29/17 06/29/17 06/30/17 15:00 23:00 07:00 Intake Total 275 ml Output Total 500 ml Balance -225 ml BIANCA GRANT MD Jun 29, 2017 11:49
[2017-06-29 12:00] VITALS: BP 145/82
--- NOTE | 2017-06-29 13:30 | PDOC ---
PROGRESS NOTES Chief Complaint Chief Complaint Chest pain malignant HTN PMH: CAD HTN Syncope hyperlipidemia GERD Anemia CRI DM Smoker substance abuse noncompliant with BP meds History of Present Illness History of Present Illness Pt is in the ICU He appears to be in NAD and has no complaints of chest pain, N/V, or diarrhea. He is laying in bed and conversant. He is no longer on a cardene drip. Will transfer out of ICU. Nurse mentioned persistently low Mg and replaced. Potassium replaced as well. Discussed need for BP med compliance as outpt. Discussed plan with RN. Vitals Vitals Vital Signs Date Time Temp Pulse Resp B/P (MAP) Pulse Ox O2 Delivery O2 Flow Rate FiO2 06/29/17 12:00 98.0 86 18 145/82 (103) 99 Room Air 98.0 Physical Exam General: Alert, Oriented X3, Cooperative, No acute distress Heart: Regular rate, Normal S1, Normal S2 Lungs: Clear Abdomen: Normal bowel sounds, No hepatosplenomegaly, No masses Extremities: No clubbing, No cyanosis, No edema, Normal pulses, No tenderness/ swelling Skin: No rashes, No breakdown, No significant lesion Labs LABS Laboratory Tests Test 06/28/17 17:56 06/28/17 21:10 06/29/17 03:33 06/29/17 12:47 Glucose (Fingerstick) 96 mg/dL (70-99) 137 mg/dL (70-99) 206 mg/dL (70-99) White Blood Count 7.3 x10^3/uL (4.0-11.0) Red Blood Count 3.30 x10^6/uL (4.30-5.70) Hemoglobin 8.9 g/dL (13.0-17.5) Hematocrit 26.5 % (39.0-53.0) Mean Corpuscular Volume 81 fL (79-100) Mean Corpuscular Hemoglobin 27 pg (25-35) Mean Corpuscular Hemoglobin Concent 33 g/dL (31-37) Red Cell Distribution Width 18.7 % (11.5-14.5) Platelet Count 220 x10^3/uL (140-400) Neutrophils (%) (Auto) 65 % (31-73) Lymphocytes (%) (Auto) 19 % (24-48) Monocytes (%) (Auto) 10 % (0-9) Eosinophils (%) (Auto) 6 % (0-3) Basophils (%) (Auto) 1 % (0-3) Neutrophils # (Auto) 4.8 x10^3uL (1.8-7.7) Lymphocytes # (Auto) 1.4 x10^3/uL (1.0-4.8) Monocytes # (Auto) 0.7 x10^3/uL (0.0-1.1) Eosinophils # (Auto) 0.4 x10^3/uL (0.0-0.7) Basophils # (Auto) 0.1 x10^3/uL (0.0-0.2) Sodium Level 143 mmol/L (136-145) Potassium Level 3.3 mmol/L (3.5-5.1) Chloride Level 108 mmol/L (98-107) Carbon Dioxide Level 27 mmol/L (21-32) Anion Gap 8 (6-14) Blood Urea Nitrogen 22 mg/dL (8-26) Creatinine 2.5 mg/dL (0.7-1.3) Estimated GFR (Cockcroft-Gault) 32.9 Glucose Level 152 mg/dL (70-99) Calcium Level 8.5 mg/dL (8.5-10.1) Magnesium Level 2.0 mg/dL (1.8-2.4) Review of Systems Review of Systems Pt complains of hunger Pt complains of fatigue Pt complains of LE stiffness Assessment and Plan Assessmemt and Plan Problems Medical Problems: (1) Malignant hypertension Status: Acute (2) Unstable angina Status: Acute Chest pain malignant HTN PMH: CAD HTN Syncope hyperlipidemia GERD Anemia CRI DM Smoker substance abuse noncompliant with BP meds Plan: cont. ICU monitoring until transfer recheck labs cont oral BP meds educate need for medicine compliance appreciate subspecialist input Possible D/C today/tomorrow when ok with cardiology Problems: Comment Review of Relevant I have reviewed the following items nabil (where applicable) has been applied. Labs Laboratory Tests Test 06/27/17 17:01 06/27/17 20:54 06/28/17 03:30 06/28/17 08:16 Glucose (Fingerstick) 113 mg/dL (70-99) 175 mg/dL (70-99) 179 mg/dL (70-99) White Blood Count 6.6 x10^3/uL (4.0-11.0) Red Blood Count 3.24 x10^6/uL (4.30-5.70) Hemoglobin 8.7 g/dL (13.0-17.5) Hematocrit 26.3 % (39.0-53.0) Mean Corpuscular Volume 81 fL (79-100) Mean Corpuscular Hemoglobin 27 pg (25-35) Mean Corpuscular Hemoglobin Concent 33 g/dL (31-37) Red Cell Distribution Width 18.6 % (11.5-14.5) Platelet Count 193 x10^3/uL (140-400) Neutrophils (%) (Auto) 67 % (31-73) Lymphocytes (%) (Auto) 16 % (24-48) Monocytes (%) (Auto) 11 % (0-9) Eosinophils (%) (Auto) 6 % (0-3) Basophils (%) (Auto) 1 % (0-3) Neutrophils # (Auto) 4.4 x10^3uL (1.8-7.7) Lymphocytes # (Auto) 1.0 x10^3/uL (1.0-4.8) Monocytes # (Auto) 0.7 x10^3/uL (0.0-1.1) Eosinophils # (Auto) 0.4 x10^3/uL (0.0-0.7) Basophils # (Auto) 0.0 x10^3/uL (0.0-0.2) Sodium Level 141 mmol/L (136-145) Potassium Level 3.1 mmol/L (3.5-5.1) Chloride Level 106 mmol/L (98-107) Carbon Dioxide Level 27 mmol/L (21-32) Anion Gap 8 (6-14) Blood Urea Nitrogen 22 mg/dL (8-26) Creatinine 2.6 mg/dL (0.7-1.3) Estimated GFR (Cockcroft-Gault) 31.4 Glucose Level 264 mg/dL (70-99) Calcium Level 8.3 mg/dL (8.5-10.1) Test 06/28/17 11:23 06/28/17 17:56 06/28/17 21:10 06/29/17 03:33 Glucose (Fingerstick) 270 mg/dL (70-99) 96 mg/dL (70-99) 137 mg/dL (70-99) White Blood Count 7.3 x10^3/uL (4.0-11.0) Red Blood Count 3.30 x10^6/uL (4.30-5.70) Hemoglobin 8.9 g/dL (13.0-17.5) Hematocrit 26.5 % (39.0-53.0) Mean Corpuscular Volume 81 fL (79-100) Mean Corpuscular Hemoglobin 27 pg (25-35) Mean Corpuscular Hemoglobin Concent 33 g/dL (31-37) Red Cell Distribution Width 18.7 % (11.5-14.5) Platelet Count 220 x10^3/uL (140-400) Neutrophils (%) (Auto) 65 % (31-73) Lymphocytes (%) (Auto) 19 % (24-48) Monocytes (%) (Auto) 10 % (0-9) Eosinophils (%) (Auto) 6 % (0-3) Basophils (%) (Auto) 1 % (0-3) Neutrophils # (Auto) 4.8 x10^3uL (1.8-7.7) Lymphocytes # (Auto) 1.4 x10^3/uL (1.0-4.8) Monocytes # (Auto) 0.7 x10^3/uL (0.0-1.1) Eosinophils # (Auto) 0.4 x10^3/uL (0.0-0.7) Basophils # (Auto) 0.1 x10^3/uL (0.0-0.2) Sodium Level 143 mmol/L (136-145) Potassium Level 3.3 mmol/L (3.5-5.1) Chloride Level 108 mmol/L (98-107) Carbon Dioxide Level 27 mmol/L (21-32) Anion Gap 8 (6-14) Blood Urea Nitrogen 22 mg/dL (8-26) Creatinine 2.5 mg/dL (0.7-1.3) Estimated GFR (Cockcroft-Gault) 32.9 Glucose Level 152 mg/dL (70-99) Calcium Level 8.5 mg/dL (8.5-10.1) Magnesium Level 2.0 mg/dL (1.8-2.4) Test 06/29/17 12:47 Glucose (Fingerstick) 206 mg/dL (70-99) Laboratory Tests Test 06/28/17 17:56 06/28/17 21:10 06/29/17 03:33 06/29/17 12:47 Glucose (Fingerstick) 96 mg/dL (70-99) 137 mg/dL (70-99) 206 mg/dL (70-99) White Blood Count 7.3 x10^3/uL (4.0-11.0) Red Blood Count 3.30 x10^6/uL (4.30-5.70) Hemoglobin 8.9 g/dL (13.0-17.5) Hematocrit 26.5 % (39.0-53.0) Mean Corpuscular Volume 81 fL (79-100) Mean Corpuscular Hemoglobin 27 pg (25-35) Mean Corpuscular Hemoglobin Concent 33 g/dL (31-37) Red Cell Distribution Width 18.7 % (11.5-14.5) Platelet Count 220 x10^3/uL (140-400) Neutrophils (%) (Auto) 65 % (31-73) Lymphocytes (%) (Auto) 19 % (24-48) Monocytes (%) (Auto) 10 % (0-9) Eosinophils (%) (Auto) 6 % (0-3) Basophils (%) (Auto) 1 % (0-3) Neutrophils # (Auto) 4.8 x10^3uL (1.8-7.7) Lymphocytes # (Auto) 1.4 x10^3/uL (1.0-4.8) Monocytes # (Auto) 0.7 x10^3/uL (0.0-1.1) Eosinophils # (Auto) 0.4 x10^3/uL (0.0-0.7) Basophils # (Auto) 0.1 x10^3/uL (0.0-0.2) Sodium Level 143 mmol/L (136-145) Potassium Level 3.3 mmol/L (3.5-5.1) Chloride Level 108 mmol/L (98-107) Carbon Dioxide Level 27 mmol/L (21-32) Anion Gap 8 (6-14) Blood Urea Nitrogen 22 mg/dL (8-26) Creatinine 2.5 mg/dL (0.7-1.3) Estimated GFR (Cockcroft-Gault) 32.9 Glucose Level 152 mg/dL (70-99) Calcium Level 8.5 mg/dL (8.5-10.1) Magnesium Level 2.0 mg/dL (1.8-2.4) Microbiology 06/25/17 Blood Culture - Preliminary, Resulted NO GROWTH AFTER 4 DAYS Medications Current Medications Sodium Chloride 1,000 ml @ 1,000 mls/hr 1X ONCE IV Last administered on 06/25 08:56; Start 06/25/17 at 08:45; Stop 06/25/17 at 09:44; Status DC Nitroglycerin/ Dextrose 250 ml @ As Directed STK-MED ONCE IV ; Start 06/25/17 at 08:54; Stop 06/25/17 at 08:55; Status DC Nitroglycerin/ Dextrose 250 ml @ 0 mls/hr 1X ONCE IV Last administered on 09:04; Start 06/25/17 at 09:30; Stop 06/25/17 at 09:31; Status DC Furosemide (Lasix) 40 mg 1X ONCE IVP Last administered on 06/25/17 09:35; Start 06/25/17 at 09:30; Stop 06/25/17 at 09:31; Status DC Labetalol HCl (Normodyne) 20 mg 1X ONCE IVP Last administered on 06/25/17 09 :36; Start 06/25/17 at 09:30; Stop 06/25/17 at 09:31; Status DC Aspirin (Berny Aspirin) 325 mg 1X ONCE PO Last administered on 06/25/17 09: 40; Start 06/25/17 at 09:45; Stop 06/25/17 at 09:46; Status DC Metoprolol Tartrate (Lopressor) 25 mg BID PO Last administered on 06/25/17 20 :51; Start 06/25/17 at 11:00; Stop 06/26/17 at 08:25; Status DC Furosemide (Lasix) 40 mg BID92 IVP Last administered on 06/27/17 08:18; Start 06/25/17 at 11:00; Stop 06/27/17 at 12:42; Status DC Labetalol HCl (Normodyne) 20 mg PRN Q2HRS PRN IVP ELEVATED BP, SEE COMMENTS Last administered on 06/27/17 03:52; Start 06/25/17 at 10:45 Aspirin (Ecotrin) 81 mg DAILYWBKFT PO Last administered on 06/29/17 08:42; Start 06/26/17 at 08:00 Atorvastatin Calcium (Lipitor) 40 mg QHS PO ; Start 06/25/17 at 21:00; Stop at 08:01; Status DC Amlodipine Besylate (Norvasc) 10 mg DAILY PO Last administered on 06/29/17 08 :41; Start 06/25/17 at 12:30 Nicardipine HCl 50 mg/Sodium Chloride 270 ml @ 0 mls/hr CONT PRN IV SEE I/O RECORD Last administered on 06/26/17 05:49; Start 06/25/17 at 12:30; Stop at 11:45; Status DC Info (Do NOT chart on this placeholder) 1 each 1X ONCE MC ; Start 06/25/17 at 13:30; Stop 06/25/17 at 13:31; Status UNV Influenza Virus Vaccine Quadrival (Fluarix Quad [id number] Syringe) 0.5 ml ONCE ONCE VAX IM Last administered on 06/29/17 08:38; Start 06/26/17 at 09:00; Stop 06/26/17 at 09:01; Status DC Amlodipine Besylate (Norvasc) 10 mg DAILY PO ; Start 06/25/17 at 17:00; Stop 06/26/17 at 08:01; Status DC Clonidine HCl (Catapres) 0.1 mg BID PO Last administered on 06/25/17 20:52; Start 06/25/17 at 21:00; Stop 06/26/17 at 08:25; Status DC Hydralazine HCl (Apresoline) 25 mg TID PO Last administered on 06/25/17 20:52 ; Start 06/25/17 at 16:00; Stop 06/26/17 at 08:25; Status DC Atorvastatin Calcium (Lipitor) 80 mg QHS PO Last administered on 06/28/17 21: 04; Start 06/25/17 at 21:00 Carvedilol (Coreg) 50 mg BIDWMEALS PO Last administered on 06/25/17 17:33; Start 06/25/17 at 17:00; Stop 06/26/17 at 08:25; Status DC Gabapentin (Neurontin) 800 mg TID PO Last administered on 06/29/17 09:00; Start 06/25/17 at 16:15 Insulin Aspart (NovoLOG) 0-7 UNITS QIDACHS SQ Last administered on 06/29/17 08:47; Start 06/25/17 at 16:30 Dextrose (Dextrose 50%-Water Syringe) 12.5 gm PRN Q15MIN PRN IV SEE COMMENTS; Start 06/25/17 at 15:45 Carvedilol (Coreg) 25 mg BIDWMEALS PO Last administered on 06/29/17 08:44; Start 06/26/17 at 17:00 Clonidine HCl (Catapres) 0.1 mg PRN Q8HRS PRN PO ELEVATED BP, SEE COMMENTS Last administered on 06/27/17 00:34; Start 06/26/17 at 21:00 Hydralazine HCl (Apresoline) 50 mg TID PO Last administered on 06/26/17 13:39 ; Start 06/26/17 at 09:00; Stop 06/26/17 at 13:43; Status DC Isosorbide Mononitrate (Imdur) 60 mg DAILY PO Last administered on 06/26/17 09:21; Start 06/26/17 at 09:00; Stop 06/26/17 at 13:43; Status DC Carvedilol (Coreg) 25 mg 1X ONCE PO Last administered on 06/26/17 13:39; Start 06/26/17 at 12:00; Stop 06/26/17 at 12:01; Status DC Hydralazine HCl (Apresoline) 100 mg TID PO Last administered on 06/28/17 08: 44; Start 06/26/17 at 14:00; Stop 06/28/17 at 08:50; Status DC Isosorbide Mononitrate (Imdur) 120 mg DAILY PO Last administered on 06/29/17 08:42; Start 06/27/17 at 09:00 Isosorbide Mononitrate (Imdur) 60 mg 1X ONCE PO ; Start 06/26/17 at 14:00; Stop 06/26/17 at 14:01; Status DC Hydralazine HCl (Apresoline Inj) 10 mg 1X ONCE IVP ; Start 06/26/17 at 13:45; Stop 06/26/17 at 13:47; Status DC Magnesium Sulfate/ Dextrose 50 ml @ 25 mls/hr 1X ONCE IV Last administered on 06/26/17 15:25; Start 06/26/17 at 15:00; Stop 06/26/17 at 16:59; Status DC Nicotine (Nicoderm Cq 14mg) 1 patch DAILY TD Last administered on 06/29/17 08 :44; Start 06/26/17 at 19:15 Nicardipine HCl 50 mg/Sodium Chloride 270 ml @ 0 mls/hr CONT PRN IV SEE I/O RECORD Last administered on 06/27/17 06:15; Start 06/27/17 at 06:15 Potassium Chloride (Klor-Con) 40 meq 1X ONCE PO Last administered on 08:18; Start 06/27/17 at 07:30; Stop 06/27/17 at 07:39; Status DC Magnesium Chloride (Mag Delay) 64 mg 1X ONCE PO Last administered on 08:19; Start 06/27/17 at 07:30; Stop 06/27/17 at 07:39; Status DC Acetaminophen (Tylenol) 650 mg PRN Q6HRS PRN PO MILD PAIN / TEMP Last administered on 06/29/17 00:11; Start 06/27/17 at 09:45 Clonidine HCl (Catapres) 0.2 mg Q8HRS PO Last administered on 06/29/17 05:53 ; Start 06/27/17 at 11:30 Furosemide (Lasix) 40 mg BID92 PO Last administered on 06/29/17 08:41; Start 06/27/17 at 14:00 Potassium Chloride (Klor-Con) 40 meq 1X ONCE PO Last administered on 08:39; Start 06/28/17 at 08:30; Stop 06/28/17 at 08:31; Status DC Hydralazine HCl (Apresoline) 100 mg TID PO Last administered on 06/29/17 08: 43; Start 06/28/17 at 09:00 Potassium Chloride (Klor-Con) 40 meq 1X ONCE PO Last administered on 10/15/ 17at 12:53; Start 06/29/17 at 09:30; Stop 06/29/17 at 09:31; Status DC Active Scripts Active Reported Metformin Hcl Er (Metformin Hcl) 1,000 Mg Tab.er.24 1,000 Mg PO DAILYWBKFT Hydralazine Hcl 25 Mg Tablet 1 Tab PO TID Clonidine Hcl 0.1 Mg Tablet 1 Tab PO BID Carvedilol 25 Mg Tablet 2 Tab PO BID Atorvastatin Calcium 80 Mg Tablet 1 Tab PO DAILY Amlodipine Besylate 10 Mg Tablet 10 Mg PO DAILY Gabapentin 800 Mg Tablet 800 Mg PO TID Glimepiride 4 Mg Tablet 1 Tab PO BID Vitals/I & O Vital Sign - Last 24 Hours 06/28/17 06/28/17 06/28/17 06/28/17 14:56 14:57 16:00 18:00 Temp 98.3 98.3 Pulse 85 80 80 94 B/P (MAP) 133/81 133/81 144/86 (105) 141/75 Pulse Ox 98 06/28/17 06/28/17 06/28/17 06/28/17 20:00 20:00 21:05 23:25 Pulse 84 83 93 Resp 20 B/P (MAP) 140/79 (99) 140/86 159/87 Pulse Ox 98 O2 Delivery Room Air Room Air 06/29/17 06/29/17 06/29/17 06/29/17 00:00 04:00 05:53 08:00 Temp 97.7 97.7 Pulse 87 85 78 81 Resp 18 18 18 B/P (MAP) 155/82 (106) 154/92 (112) 148/82 176/111 (132) Pulse Ox 97 98 98 O2 Delivery Room Air Room Air Room Air 06/29/17 06/29/17 06/29/17 06/29/17 08:00 08:41 08:42 08:43 Pulse 92 91 91 B/P (MAP) 176/111 176/111 176/111 O2 Delivery Room Air 06/29/17 06/29/17 06/29/17 08:44 10:38 12:00 Temp 98.0 98.0 Pulse 91 90 86 Resp 18 18 B/P (MAP) 176/111 151/80 (103) 145/82 (103) Pulse Ox 98 99 O2 Delivery Room Air Room Air Intake and Output 06/29/17 06/29/17 06/30/17 15:00 23:00 07:00 Intake Total 550 ml Output Total 500 ml Balance 50 ml MARK SALDANA III DO Jun 29, 2017 13:30
[2017-06-29 14:39] VITALS: BP 145/82
== END 2017-06-29 15:00 | disposition home or self-care (01) | DRG 291 ==
LOC: ER 08:35 → 1 WEST ICU 10:05
PROVIDERS: ADMIT Internal Medicine; ATTEND Internal Medicine
DX: I13.0 Hypertensive heart and chronic kidney disease with heart failure and stage 1 through stage 4 chronic kidney disease, or unspecified chronic kidney disease (principal); E43 Unspecified severe protein-calorie malnutrition; J90 Pleural effusion, not elsewhere classified; I50.33 Acute on chronic diastolic (congestive) heart failure; N17.9 Acute kidney failure, unspecified; J98.11 Atelectasis; I16.1 Hypertensive emergency; N18.4 Chronic kidney disease, stage 4 (severe); I25.110 Atherosclerotic heart disease of native coronary artery with unstable angina pectoris; E11.22 Type 2 diabetes mellitus with diabetic chronic kidney disease; F11.90 Opioid use, unspecified, uncomplicated; F19.90 Other psychoactive substance use, unspecified, uncomplicated; M19.90 Unspecified osteoarthritis, unspecified site; D64.9 Anemia, unspecified; E78.5 Hyperlipidemia, unspecified; F12.10 Cannabis abuse, uncomplicated; F17.210 Nicotine dependence, cigarettes, uncomplicated; F41.9 Anxiety disorder, unspecified; I15.8 Other secondary hypertension; K21.9 Gastro-esophageal reflux disease without esophagitis; I25.2 Old myocardial infarction; Z91.11 Patient's noncompliance with dietary regimen; Z91.14 Patient's other noncompliance with medication regimen; Z91.19 Patient's noncompliance with other medical treatment and regimen; Z95.1 Presence of aortocoronary bypass graft; Z82.49 Family history of ischemic heart disease and other diseases of the circulatory system; Z68.23 Body mass index [BMI] 23.0-23.9, adult
CPT/HCPCS: 36415; 71010; 76770; 80047; 80048; 80053; 80061; 80307; 81001; 82962; 83036; 83605; 83735; 84484; 85025; 85610; 87040; 87641; 90686; 93005; 93306; 96365; 96366; 96375; 99406; J1815; J1940; J3490; J7030; J7050; J7060; 99291-25; G0479

== ENCOUNTER 2021-07-18 01:57 | Emergency (ER) | payer MEDICARE, BC, MEDICAID ==
[~2021-07-18] VITALS: Ht 180.3 cm; Wt 65.9 kg
[~2021-07-18 01:57] MED LIST: AMLO-187 PO; ASPI-886 PO; ATORVASTATIN CA80 MG PO; CARV25TA2 PO; CLON0.1T PO; CLON0.3T PO; DARBEPOETIN ALFA IN POLYSORBAT SQ; DOXY100C3 PO; FERR325T14 PO; FURO40TA4 PO; GABA800T5 PO; GLIM4TAB8 PO; GLIP-24 PO; HYDR-2761 PO; HYDR-2868 PO; HYDR-2869 PO; INSU100I13 SQ; IPRA3AMP29 NEB; ISOS30TA68 PO; LABE100T5 PO; LISI20TA18 PO; METF100010 PO; METF10007 PO; METO-247 PO; SPIR25TA5 PO
[2021-07-18 02:53] LABS: BASO % 1 % (0-3); EOS # 0.1 x10^3/uL (0.0-0.7); EOS % 3 % (0-3); HEMATOCRIT 31.3 % (39.0-53.0); HEMOGLOBIN 10.1 g/dL (13.0-17.5); LYMPH # 0.5 x10^3/uL (1.0-4.8); LYMPH % 15 % (24-48); MEAN CORPUSCULAR HEMOGLOBIN 28 pg (25-35); MEAN CORPUSCULAR HGB CONC 32 g/dL (31-37); MEAN CORPUSCULAR VOLUME 88 fL (79-100); MONO # 0.7 x10^3/uL (0.0-1.1); MONO % 23 % (0-9); NEUT # 1.9 x10^3/uL (1.8-7.7); NEUT % 59 % (31-73); PLATELET COUNT 257 x10^3/uL (140-400); RED BLOOD COUNT 3.56 x10^6/uL (4.30-5.70); RED CELL DISTRIBUTION WIDTH 22.3 % (11.5-14.5); WHITE BLOOD COUNT 3.3 x10^3/uL (4.0-11.0)
[2021-07-18 02:59] LABS: CALCIUM 8.9 mg/dL (8.5-10.1); CREATININE 11.4 mg/dL (0.7-1.3); GFR 5.6; POTASSIUM 4.6 mmol/L (3.5-5.1)
[2021-07-18 03:05] LABS: ALBUMIN 3.5 g/dL (3.4-5.0); ALBUMIN/GLOBULIN RATIO 0.9 (1.0-1.7); MAGNESIUM 2.5 mg/dL (1.8-2.4); TOTAL BILIRUBIN 0.5 mg/dL (0.2-1.0); TOTAL PROTEIN 7.6 g/dL (6.4-8.2)
[2021-07-18 03:25] LABS: % BASOS 1 % (0-3); % EOS 3 % (0-5); % LYMPHS 10 % (24-48); % MONOS 13 % (0-10); % SEGS 73 % (35-66); ANISOCYTOSIS MOD; HYPOCHROMIA SLIGHT; PLT ESTIMATE ADEQUATE (ADEQUATE); POIKILOCYTOSIS SLIGHT; SCHISTOCYTES OCC; TARGET CELLS OCC
[2021-07-18 03:26] LABS: HELMET CELLS OCC; OVALOCYTES OCC; SPHEROCYTES OCC
--- NOTE | 2021-07-18 03:29 | RAD ---
XR CHEST 1V 07/18/2021 3:09 AM INDICATION: Shortness of air COMPARISON: 02/15/2021 TECHNIQUE: Portable frontal view of the chest is provided. FINDINGS: The cardiomediastinal silhouette is within normal limits. Median sternotomy changes are present. Ther e is increased perihilar interstitial changes as compared to prior examination. Increased consolidati ve change at the right lung base. Small right pleural effusion with adjacent basilar atelectasis vers us infiltrate. Bullous emphysematous changes are suspected at the right lung apex. Definite pneumotho rax is not visualized. There are no significant pleural effusions. There is no pulmonary vascular congestion. No pneumothora x. No suspicious osseous abnormality. IMPRESSION: Pulmonary emphysematous changes with increased interstitial airspace disease. Increase in small right pleural effusion with adjacent compressive atelectasis versus infiltrate. Electronically signed by: Elizabeth Cross MD (07/18/2021 3:26 AM) [facility]
--- NOTE | 2021-07-18 04:24 | PHYS DOC ---
Past Medical History Past Medical History: CAD, Diabetes-Type II, Hypertension, [place], Renal Failure Additional Past Medical Histor: DIALYSIS FRI,FRI,FRI Past Surgical History: Coronary Bypass Surgery, Other Additional Past Surgical Histo: thoracentesis,RIGHT RA AV SHUNT, AV shunt left arm Smoking Status: Current Every Day Smoker Alcohol Use: Heavy Drug Use: Marijuana General Adult EDM: Chief Complaint: DIALYSIS PROBLEM HPI: HPI: Patient is a 55 year old male with history of end-stage renal failure on hemodialysis every Friday and Friday presenting to ER wanted to see if he needs to have hemodialysis today. Patient said he had dialysis on Friday in [place] where he is from. Patient said he is up here for a family , he is supposed to have hemodialysis today, checking to ER to see if he needs to have a emergency hemodialysis. Patient denies any chest pain, denies any trouble breathing. Patient denies any cough or fever. Patient denies any nausea vomiting Review of Systems: Review of Systems: Constitutional: Denies fever or chills. [] Eyes: Denies change in visual acuity. [] HENT: Denies nasal congestion or sore throat. [] Respiratory: Denies cough or shortness of breath. [] Cardiovascular: Denies chest pain or edema. [] GI: Denies abdominal pain, nausea, vomiting, bloody stools or diarrhea. [] : Denies dysuria. [] Musculoskeletal: Denies back pain or joint pain. [] Integument: Denies rash. [] Neurologic: Denies headache, focal weakness or sensory changes. [] Endocrine: Denies polyuria or polydipsia. [] Lymphatic: Denies swollen glands. [] Psychiatric: Denies depression or anxiety. [] Heart Score: C/O Chest Pain: N/A Risk Factors: Risk Factors: DM, Current or recent (<one month) smoker, HTN, HLP, family history of CAD, obesity. Risk Scores: Score 0 - 3: 2.5% MACE over next 6 weeks - Discharge Home Score 4 - 6: 20.3% MACE over next 6 weeks - Admit for Clinical Observation Score 7 - 10: 72.7% MACE over next 6 weeks - Early Invasive Strategies Allergies: Allergies: Allergies Coded Allergies Type Severity Reaction Last Updated Verified amlodipine Allergy Severe angioedema 01/20/21 Yes I S O L A T I O N *CONTACT* Allergy Unknown 01/15/18 Yes No Known Medication Allergies Allergy Unknown 01/07/18 Yes Physical Exam: PE: Constitutional: Well developed, well nourished, no acute distress, non-toxic appearance. [] HENT: Normocephalic, atraumatic, bilateral external ears normal, oropharynx moist, no oral exudates, nose normal. [] Eyes: PERRLA, EOMI, conjunctiva normal, no discharge. [] Neck: Normal range of motion, no tenderness, supple, no stridor. [] Cardiovascular:Heart rate regular rhythm, no murmur [] Lungs & Thorax: Bilateral breath sounds clear to auscultation [] Abdomen: Bowel sounds normal, soft, no tenderness, no masses, no pulsatile masses. [] Skin: Warm, dry, no erythema, no rash. [] Back: No tenderness, no CVA tenderness. [] Extremities: No tenderness, no cyanosis, no clubbing, ROM intact, no edema. AV fistula on the left side strong bruit and thrill. Neurologic: Alert and oriented X 3, normal motor function, normal sensory function, no focal deficits noted. [] Psychologic: Affect normal, judgement normal, mood normal. [] Current Patient Data: Labs: Laboratory Tests Test 07/18/21 02:45 White Blood Count 3.3 x10^3/uL (4.0-11.0) L Red Blood Count 3.56 x10^6/uL (4.30-5.70) L Hemoglobin 10.1 g/dL (13.0-17.5) L Hematocrit 31.3 % (39.0-53.0) L Mean Corpuscular Volume 88 fL (79-100) Mean Corpuscular Hemoglobin 28 pg (25-35) Mean Corpuscular Hemoglobin Concent 32 g/dL (31-37) Red Cell Distribution Width 22.3 % (11.5-14.5) H Platelet Count 257 x10^3/uL (140-400) Neutrophils (%) (Auto) 59 % (31-73) Lymphocytes (%) (Auto) 15 % (24-48) L Monocytes (%) (Auto) 23 % (0-9) H Eosinophils (%) (Auto) 3 % (0-3) Basophils (%) (Auto) 1 % (0-3) Neutrophils # (Auto) 1.9 x10^3/uL (1.8-7.7) Lymphocytes # (Auto) 0.5 x10^3/uL (1.0-4.8) L Monocytes # (Auto) 0.7 x10^3/uL (0.0-1.1) Eosinophils # (Auto) 0.1 x10^3/uL (0.0-0.7) Basophils # (Auto) 0.0 x10^3/uL (0.0-0.2) Segmented Neutrophils % 73 % (35-66) H Lymphocytes % 10 % (24-48) L Monocytes % 13 % (0-10) H Eosinophils % 3 % (0-5) Basophils % 1 % (0-3) Platelet Estimate Adequate (ADEQUATE) Hypochromasia Slight Poikilocytosis Slight Anisocytosis Mod Spherocytes Occ Target Cells Occ Ovalocytes Occ Helmet Cells Occ Schistocytes Occ Sodium Level 139 mmol/L (136-145) Potassium Level 4.6 mmol/L (3.5-5.1) Chloride Level 96 mmol/L (98-107) L Carbon Dioxide Level 29 mmol/L (21-32) Anion Gap 14 (6-14) Blood Urea Nitrogen 54 mg/dL (8-26) H Creatinine 11.4 mg/dL (0.7-1.3) H Estimated GFR (Cockcroft-Gault) 5.6 BUN/Creatinine Ratio 5 (6-20) L Glucose Level 154 mg/dL (70-99) H Calcium Level 8.9 mg/dL (8.5-10.1) Magnesium Level 2.5 mg/dL (1.8-2.4) H Total Bilirubin 0.5 mg/dL (0.2-1.0) Aspartate Amino Transferase (AST) 14 U/L (15-37) L Alanine Aminotransferase (ALT) 19 U/L (16-63) Alkaline Phosphatase 50 U/L (46-116) Total Protein 7.6 g/dL (6.4-8.2) Albumin 3.5 g/dL (3.4-5.0) Albumin/Globulin Ratio 0.9 (1.0-1.7) L Laboratory Tests 07/18/21 02:45 Laboratory Tests 07/18/21 02:45 Vital Signs: Vital Signs Date Time Temp Pulse Resp B/P (MAP) Pulse Ox O2 Delivery O2 Flow Rate FiO2 07/18/21 02:15 98.2 106 16 110/72 (85) 95 Room Air 98.2 EKG: EKG: EKG was done at 228, heart rate 107 beats minute, sinus tachycardia, no ST segment elevation, ventricular premature complexes Radiology/Procedures: Radiology/Procedures: [][facility] [address] [place] [address] IMAGING REPORT Signed PATIENT: GEORGES VILLEDAOUNT: [id number] : 1965 LOCATION: ER AGE: 55 SEX: M EXAM STATUS: REG ER ORD. PHYSICIAN: FLY GARRISON DO REASON: SOA PROCEDURE: CHEST AP ONLY XR CHEST 1V 07/18/2021 3:09 AM INDICATION: Shortness of air COMPARISON: 02/15/2021 TECHNIQUE: Portable frontal view of the chest is provided. FINDINGS: The cardiomediastinal silhouette is within normal limits. Median sternotomy changes are present. There is increased perihilar interstitial changes as compared to prior examination. Increased consolidative change at the right lung base. Small right pleural effusion with adjacent basilar atelectasis versus infiltrate. Bullous emphysematous changes are suspected at the right lung apex. Definite pneumothorax is not visualized. There are no significant pleural effusions. There is no pulmonary vascular congestion. No pneumothorax. No suspicious osseous abnormality. IMPRESSION: Pulmonary emphysematous changes with increased interstitial airspace disease. Increase in small right pleural effusion with adjacent compressive atelectasis versus infiltrate. Electronically signed by: Cathi Farfan MD (07/18/2021 3:26 AM) [facility] DICTATED and SIGNED BY: CATHI FARFAN MD DATE: 07/18/21 [id number] 0 Course & Med Decision Making: Course & Med Decision Making Pertinent Labs and Imaging studies reviewed. (See chart for details) Patient is a 55-year-old male who present to ER wanted to know if he needs an emergency hemodialysis. Patient had end-stage renal failure on hemodialysis every Friday and Friday. Patient had his last hemodialysis on Friday. He is scheduled to have hemodialysis today, however he is [employer] here for a family , so he came here to see if he needs dialysis or not. Patient lab work was reassuring, his oxygen saturation is 98 to 99% room air, his blood pressure was acceptable. Patient is in no acute distress. Patient does not need emergency dialysis at this time. Patient will be discharged home, he need to hemodialysis this week. Dragon Disclaimer: Mely Disclaimer: This electronic medical record was generated, in whole or in part, using a voice recognition dictation system. Departure Departure Impression: Primary Impression: ESRD (end stage renal disease) Disposition: HOME / SELF CARE / HOMELESS Condition: STABLE Referrals: NO PCP (PCP) Patient Instructions: End Stage Kidney Disease Additional Instructions: Follow up with your terrazzo grinder for dialysis this week. FLY GARRISON DO Jul 18, 2021 04:24
[2021-07-18 05:00] VITALS: BP 112/71
[2021-07-18] MEDS ORDERED: AZIT250T PO (21:41)
[2021-07-18] MEDS ORDERED: AMOX1TAB61 PO (21:41)
== END 2021-07-18 05:10 | disposition home or self-care (01) ==
LOC: ER 01:57
DX: E11.22 Type 2 diabetes mellitus with diabetic chronic kidney disease (principal); I12.0 Hypertensive chronic kidney disease with stage 5 chronic kidney disease or end stage renal disease; N18.6 End stage renal disease; Z99.2 Dependence on renal dialysis; F17.200 Nicotine dependence, unspecified, uncomplicated; I25.2 Old myocardial infarction; I25.10 Atherosclerotic heart disease of native coronary artery without angina pectoris; Z95.5 Presence of coronary angioplasty implant and graft; Z91.041 Radiographic dye allergy status; F10.20 Alcohol dependence, uncomplicated; Y90.9 Presence of alcohol in blood, level not specified; Z88.1 Allergy status to other antibiotic agents
CPT/HCPCS: 36415; 71045; 80053; 83735; 85007; 85025; 99284

== ENCOUNTER 2021-07-18 15:50 | Emergency (ER) | payer MEDICARE, BC, MEDICAID ==
[~2021-07-18] VITALS: Ht 182.9 cm; Wt 71.8 kg
--- NOTE | 2021-07-18 16:01 | ED.ADGEN ---
Past Medical History Past Medical History: CAD, Diabetes-Type II, Hypertension, SD, Renal Failure Additional Past Medical Histor: DIALYSIS FRI,FRI,FRI Past Surgical History: Coronary Bypass Surgery, Other Additional Past Surgical Histo: thoracentesis,RIGHT RA AV SHUNT, AV shunt left arm Smoking Status: Current Every Day Smoker Alcohol Use: Heavy Drug Use: Marijuana General Adult HPI: HPI: Patient is a 55-year-old male who arrives via EMS complaining of shortness of air. Patient reports he has been short of air since yesterday. Patient reports that he does dialyze on Wednesdays and Fridays however he is visiting from out of town and missed his dialysis appointment today. Patient states that this is the symptomology that accompanies him whenever he misses his dialysis appointment. Despite being short of air, the patient denies any chest pain. He further denies any fevers or sick contacts. Additionally the patient states he did get the coronavirus vaccine series and has not had any known contacts otherwise. The patient was evaluated in this emergency department earlier today and discharged with the understanding that he would be returning home for dialysis. The patient states however he became short of air today and became anxious and decided to seek evaluation again. He is awake, alert and nontoxic- appearing. Review of Systems: Review of Systems: Constitutional: Denies fever or chills. [] Eyes: Denies change in visual acuity. [] HENT: Denies nasal congestion or sore throat. [] Respiratory: Reports shortness of air. Denies cough. [] Cardiovascular: Denies chest pain or edema. [] GI: Denies abdominal pain, nausea, vomiting, bloody stools or diarrhea. [] : Denies dysuria. [] Musculoskeletal: Denies back pain or joint pain. [] Integument: Denies rash. [] Neurologic: Denies headache, focal weakness or sensory changes. [] Endocrine: Denies polyuria or polydipsia. [] Lymphatic: Denies swollen glands. [] Psychiatric: Denies depression or anxiety. [] Current Medications: Current Medications Medications (Trade) Dose Ordered Sig/Regino Start Time Stop Time Status Last Admin Dose Admin Azithromycin 250 ml @ 250 mls/hr 1X ONCE 07/18/21 17:30 07/18/21 18:29 DC 07/18/21 18:21 250 MLS/HR Ceftriaxone Sodium (Rocephin) 1 gm 1X ONCE 07/18/21 17:30 07/18/21 17:31 DC 07/18/21 18:20 1 GM Allergies: Allergies: Allergies Coded Allergies Type Severity Reaction Last Updated Verified amlodipine Allergy Severe angioedema 01/20/21 Yes I S O L A T I O N *CONTACT* Allergy Unknown 01/15/18 Yes No Known Medication Allergies Allergy Unknown 01/07/18 Yes Physical Exam: PE: Constitutional: Uncomfortable appearing. Well developed, well nourished, non- toxic appearance. [] HENT: Normocephalic, atraumatic, bilateral external ears normal, oropharynx moist, no oral exudates, nose normal. [] Eyes: PERRLA, EOMI, conjunctiva normal, no discharge. [] Neck: Normal range of motion, no tenderness, supple, no stridor. [] Cardiovascular:Heart rate regular rhythm, no murmur [] Lungs & Thorax: Bilateral breath sounds clear to auscultation [] Abdomen: Bowel sounds normal, soft, no tenderness, no masses, no pulsatile masses. [] Skin: Warm, dry, no erythema, no rash. [] Back: No tenderness, no CVA tenderness. [] Extremities: No tenderness, no cyanosis, no clubbing, ROM intact, no edema. [] Neurologic: Alert and oriented X 3, normal motor function, normal sensory function, no focal deficits noted. [] Psychologic: Affect normal, judgement normal, mood normal. [] Current Patient Data: Labs: Laboratory Tests Test 07/18/21 19:40 07/18/21 19:46 White Blood Count 4.3 x10^3/uL (4.0-11.0) Red Blood Count 3.43 x10^6/uL (4.30-5.70) L Hemoglobin 9.5 g/dL (13.0-17.5) L Hematocrit 30.4 % (39.0-53.0) L Mean Corpuscular Volume 89 fL (79-100) Mean Corpuscular Hemoglobin 28 pg (25-35) Mean Corpuscular Hemoglobin Concent 31 g/dL (31-37) Red Cell Distribution Width 21.4 % (11.5-14.5) H Platelet Count 247 x10^3/uL (140-400) Neutrophils (%) (Auto) 69 % (31-73) Lymphocytes (%) (Auto) 11 % (24-48) L Monocytes (%) (Auto) 17 % (0-9) H Eosinophils (%) (Auto) 2 % (0-3) Basophils (%) (Auto) 1 % (0-3) Neutrophils # (Auto) 3.0 x10^3/uL (1.8-7.7) Lymphocytes # (Auto) 0.5 x10^3/uL (1.0-4.8) L Monocytes # (Auto) 0.7 x10^3/uL (0.0-1.1) Eosinophils # (Auto) 0.1 x10^3/uL (0.0-0.7) Basophils # (Auto) 0.0 x10^3/uL (0.0-0.2) Sodium Level 138 mmol/L (136-145) Potassium Level 4.9 mmol/L (3.5-5.1) Chloride Level 98 mmol/L (98-107) Carbon Dioxide Level 27 mmol/L (21-32) Anion Gap 13 (6-14) Blood Urea Nitrogen 55 mg/dL (8-26) H Creatinine 12.6 mg/dL (0.7-1.3) H Estimated GFR (Cockcroft-Gault) 5.0 BUN/Creatinine Ratio 4 (6-20) L Glucose Level 129 mg/dL (70-99) H Calcium Level 8.6 mg/dL (8.5-10.1) Total Bilirubin 0.3 mg/dL (0.2-1.0) Aspartate Amino Transferase (AST) 8 U/L (15-37) L Alanine Aminotransferase (ALT) 16 U/L (16-63) Alkaline Phosphatase 46 U/L (46-116) Total Protein 7.4 g/dL (6.4-8.2) Albumin 3.3 g/dL (3.4-5.0) L Albumin/Globulin Ratio 0.8 (1.0-1.7) L Troponin I High Sensitivity 75 ng/L (4-75) FS-Afw-O-Type Natriuretic Peptide 60280 pg/mL (0-124) H Laboratory Tests 07/18/21 19:40 Laboratory Tests 07/18/21 19:40 Vital Signs: Vital Signs Date Time Temp Pulse Resp B/P (MAP) Pulse Ox O2 Delivery O2 Flow Rate FiO2 07/18/21 21:30 78 19 160/93 (115) 96 Room Air 07/18/21 18:30 98.3 98.3 EKG: EKG: EKG was obtained at 1621 hrs. reveals a sinus rhythm with a ventricular rate of 89 bpm. There is a prolonged QT interval without any acute ST/T wave changes to denote ischemia. Heart Score: C/O Chest Pain: No HEART Score for Chest Pain: HEART Score for Chest Pain Response (Comments) Value History Moderately Suspicious 1 Age >45 - < 65 1 Risk Factors >3 Risk Factors or Hx CAD 2 Total 4 Risk Factors: Risk Factors: DM, Current or recent (<one month) smoker, HTN, HLP, family history of CAD, obesity. Risk Scores: Score 0 - 3: 2.5% MACE over next 6 weeks - Discharge Home Score 4 - 6: 20.3% MACE over next 6 weeks - Admit for Clinical Observation Score 7 - 10: 72.7% MACE over next 6 weeks - Early Invasive Strategies Radiology/Procedures: Radiology/Procedures: [][facility] [address] [place] [address] IMAGING REPORT Signed PATIENT: GEORGES VILLEDAOUNT: [id number] : 1965 LOCATION: ER AGE: 55 SEX: M EXAM STATUS: PRE ER ORD. PHYSICIAN: SAMIR GUAMAN DO REASON: soa PROCEDURE: PORTABLE CHEST 1V Exam: Chest one view INDICATION: Short of air TECHNIQUE: Frontal view of the chest Comparisons: 07/18/2021 FINDINGS: Sternotomy wires are noted. Surgical clips overlying the left heart border. The cardiomediastinal silhouette and pulmonary vessels are within normal limits. Hazy opacity in lungs bilaterally. Patchy right midlung airspace disease. There is a trace left pleural effusion. IMPRESSION: Patchy bilateral airspace disease favored be infectious or inflammatory in etiology. Electronically signed by: Murtaza Henao MD (07/18/2021 4:48 PM) [facility] DICTATED and SIGNED BY: MURTAZA HENAO MD DATE: 07/18/21 [id number] 0 Course & Med Decision Making: Course & Med Decision Making Pertinent Labs and Imaging studies reviewed. (See chart for details) During the course of the patient's evaluation in the emergency department it was interpreted the patient has pneumonia on chest x-ray. I did speak with the patient with respect to this and the patient states he knows he has pneumonia and that he is to be taking antibiotics for this illness. Patient states however he has been away from home over the past 4 to 5 days and after review of his medications does not have his antibiotics with him. This coupled with him missing dialysis is likely the contributing factor to his presentation again today. He will be treated for this illness here in the emergency department. At this time I am without blood work. While the patient verbalizes that he wants to go home it remains to be seen whether or not the patient's potassium will facilitate that. The patient's care will be transitioned to Dr. Narayanan. The patient remains awake, alert and nontoxic-appearing [] I received signout at shift change from Dr. Guaman. Patient noncompliant with hemodialysis and is likely to bounce back, seen in the ED earlier this morning. CXR concerning for infiltrate-will cover with antibiotics. Long ed stay due to labs (multiple repeat draws/delay in lab). Prior to troponin resulting, pt reque sting to leave the emergency department stating "You're taking too long." The patient has decided to leave our facility against medical advice. I have assessed patient's ability to make informed decision and feel the patient has the capacity to comprehend information regarding the current medical condition and appreciates the impact of the disease or condition and the consequences of various options for treatment, including foregoing treatment. The patient possesses the ability to evaluate all treatment options, comparing the risks and benefits of each option, communicate his or her choice in a consistent manner over time, and is able to make rational choices. I explained to the patient f fadi testing, treatment, and evaluation I would like to perform in the emergency department visit as well as any possible alternatives that can be accomplished in a timely manner. I have outlined the possible risks of foregoing any or all of these interventions and the patient understands and ack nowledges that the decision to leave may result in undesirable consequences such as , permanent disability, and/or loss of current lifestyle. Even though leaving AMA is not ideal, I have instructed the patient to follow any discharge instructions given, take any medications prescribed, and resume care as soon as possible with another provider. This conversation was witnessed by another membe elizabeth of the emergency department staff and we clearly communicated the patient is welcome to return anytime to continue care at our facility. Dragon Disclaimer: Dragon Disclaimer: This electronic medical record was generated, in whole or in part, using a voice recognition dictation system. Departure Departure Impression: Primary Impression: Pneumonia Additional Impressions: ESRD (end stage renal disease) Person under investigation for COVID-19 Missed dialysis Disposition: LEFT AGAINST MEDICAL ADVICE Condition: STABLE Referrals: NO PCP (PCP) Follow-up with your primary care physician in 24 to 48 hours OR FOLLOW UP WITH FAMILY MEDICINE: [address] [facility] [address] [place] [address] Patient Instructions: Hemodialysis, [id number], Shortness of Breath Additional Instructions: FOLLOW UP WITH NEPHROLOGY: FOR DEFINITIVE MANAGEMENT of [facility] [place] [address] [place] [place] [address] EMERGENCY DEPARTMENT GENERAL DISCHARGE INSTRUCTIONS Thank you for coming to [facility] Emergency Department (ED) today and trusting us with you care. We trust that you had a positive experience in our Emergency Department. If you wish to speak to the department management, you may call the Director at [phone]. YOUR FOLLOW UP INSTRUCTIONS ARE FOLLOWS: 1. Do you have a private Doctor? If you do not have a private doctor, please ask for a resource list of physicians or clinics that may be able to assist you with follow up care. 2. The Emergency Physicain has interpreted your x-rays. The X-Ray specialist will also review them. If there is a change in the findings, you will be notified in 48 hours when at all possible. 3. A lab test or culture has been done, your results will be reviewed and you will be notified if you need a change in treatment. ADDITIONAL INSTRUCTIONS AND INFORMATION: 1. Your care today has been supervised by a physician who is specially trained in emergency care. Many problems require more than one evaluation for a complete diagnosis and treatment. We recommend that you schedule your follow up appointment as recommended to ensure complete treatment of you illness or injury. If you are unable to obtain follow up care and continue to have a problem, or if your condition worsens, we recommend that you return to the ED. 2. We are not able to safely determine your condition over the phone nor are we able to give sound medical advice over the phone. For these safety reasons, if you call for medical advice we will ask you to come to the ED for further evaluation. 3. If you have any questions regarding these discharge instructions please call the ED at [phone]. SAFETY INFORMATION: In the interest of safety, wellness, and injury prevention; we encourage you to wear your sealbelt, if you smoke; quite smoking, and we encourage family to use a protective helmet for bicycling and other sporting events that present an increased risk for head injury. IF YOUR SYMPTOMS WORSEN OR NEW SYMPTOMS DEVELOP, OR YOU HAVE CONCERNS ABOUT YOUR CONDITION; OR IF YOUR CONDITION WORSENS WHILE YOU ARE WAITING FOR YOUR FOLLOW UP APPOINTMENT; EITHER CONTACT YOUR PRIMARY CARE DOCTOR, THE PHYSICIAN WHOSE NAME AND NUMBER YOU WERE GIVEN, OR RETURN TO THE ED IMMEDIATELY. Scripts Azithromycin (ZITHROMAX) 250 Mg Tablet 250 MG PO as directed for ANTI-BIOTIC for 10 Days, #10 TAB 0 Refills Prov: DENISE NARAYANAN DO 07/18/21 Amoxicillin/Potassium Clav (AUGMENTIN 875-125 TABLET) 1 Each Tablet 1 TAB PO Q12HR for 10 Days, #20 TAB Prov: DENISE NARAYANAN DO 07/18/21 Problem Qualifiers SAMIR GUAMAN DO Jul 18, 2021 16:01 DENISE NARAYANAN DO Jul 18, 2021 21:43
--- NOTE | 2021-07-18 16:26 | EKG ---
[facility] [address] [place] [address] Test Date: 2021-07-18 Test Time: 16:21:04 Pat Name: GEORGES VILLEDA Department: Room: Gender: M Build Master: : 1965 Requested By: SAMIR GUAMAN Order Number: [id number] Reading MD: Marcelino Tanner Measurements Intervals [place] Rate: 89 P: 38 PA: 170 QRS: 1 QRSD: 92 T: 87 QT: 390 QTc: 476 Interpretive Statements SINUS RHYTHM LEFT ATRIAL ABNORMALITY PROLONGED QT NON SPECIFIC ST-T WAVE CHANGES Electronically Signed On 07-23-2021 10:08:00 DISMANTLER by Marcelino Tanner
--- NOTE | 2021-07-18 16:51 | RAD ---
Exam: Chest one view INDICATION: Short of air TECHNIQUE: Frontal view of the chest Comparisons: 07/18/2021 FINDINGS: Sternotomy wires are noted. Surgical clips overlying the left heart border. The cardiomediastinal silhouette and pulmonary vessels are within normal limits. Hazy opacity in lungs bilaterally. Patchy right midlung airspace disease. There is a trace left pleur al effusion. IMPRESSION: Patchy bilateral airspace disease favored be infectious or inflammatory in etiology. Electronically signed by: Murtaza Valera MD (07/18/2021 4:48 PM) ERVIN
[2021-07-18] MEDS ORDERED: AZITHRMYCN 500MG IVPB FOR OMNI 250 ML IV ONE (17:30)
[2021-07-18] MEDS ORDERED: cefTRIAXone IV Push 1 GM VIAL. IVP ONE (17:30)
[2021-07-18 19:57] LABS: BASO % 1 % (0-3); EOS # 0.1 x10^3/uL (0.0-0.7); EOS % 2 % (0-3); HEMATOCRIT 30.4 % (39.0-53.0); HEMOGLOBIN 9.5 g/dL (13.0-17.5); LYMPH # 0.5 x10^3/uL (1.0-4.8); LYMPH % 11 % (24-48); MEAN CORPUSCULAR HEMOGLOBIN 28 pg (25-35); MEAN CORPUSCULAR HGB CONC 31 g/dL (31-37); MEAN CORPUSCULAR VOLUME 89 fL (79-100); MONO # 0.7 x10^3/uL (0.0-1.1); MONO % 17 % (0-9); NEUT % 69 % (31-73); PLATELET COUNT 247 x10^3/uL (140-400); RED BLOOD COUNT 3.43 x10^6/uL (4.30-5.70); RED CELL DISTRIBUTION WIDTH 21.4 % (11.5-14.5); WHITE BLOOD COUNT 4.3 x10^3/uL (4.0-11.0)
[2021-07-18 20:11] LABS: CALCIUM 8.6 mg/dL (8.5-10.1); CREATININE 12.6 mg/dL (0.7-1.3); POTASSIUM 4.9 mmol/L (3.5-5.1)
[2021-07-18 20:21] LABS: ALBUMIN 3.3 g/dL (3.4-5.0); ALBUMIN/GLOBULIN RATIO 0.8 (1.0-1.7); TOTAL BILIRUBIN 0.3 mg/dL (0.2-1.0); TOTAL PROTEIN 7.4 g/dL (6.4-8.2)
[2021-07-18 21:30] VITALS: BP 160/93
[2021-07-18] MEDS ORDERED: AMOX1TAB61 PO (21:41)
[2021-07-18] MEDS ORDERED: AZIT250T PO (21:41)
--- NOTE | 2021-07-19 17:01 | NUR ---
IP: Attempted to contact pt concerning covid results. No answer, left a voicemail to return the call.
== END 2021-07-18 21:45 | disposition left against medical advice (07) ==
LOC: ER 15:50
DX: J18.9 Pneumonia, unspecified organism (principal); Z20.822 Contact with and (suspected) exposure to COVID-19; E11.22 Type 2 diabetes mellitus with diabetic chronic kidney disease; I12.0 Hypertensive chronic kidney disease with stage 5 chronic kidney disease or end stage renal disease; N18.6 End stage renal disease; F17.200 Nicotine dependence, unspecified, uncomplicated; Z99.2 Dependence on renal dialysis; I25.10 Atherosclerotic heart disease of native coronary artery without angina pectoris; I25.2 Old myocardial infarction; Z95.5 Presence of coronary angioplasty implant and graft; Z88.1 Allergy status to other antibiotic agents; Z91.041 Radiographic dye allergy status
CPT/HCPCS: 36415; 71045; 80053; 83880; 84484; 85025; 87040; 93005; 96365; 96375; 99285; J0456; J0696; U0003; U0005